=== PATIENT | female | born 1955 | race African-American/Black ===

== ENCOUNTER 2025-01-06 08:54 | Outpatient (CLI) | payer MEDICARE, OTHER, SELFPAY ==
--- NOTE | ~2025-01-06 | CT_ITS ---
EXAM/PROCEDURE: CT abdomen pelvis w con HISTORY: LIVER ABSCESS COMPARISON: None available. TECHNIQUE: IV contrast enhanced CT of the abdomen and pelvis performed. FINDINGS: A left para midline percutaneous pigtail catheter with tip in the anterior segment of the right lobe and mild adjacent hypoattenuating changes consistent with abscess drain placement. A small amount of residual fluid may be present. The remainder the liver, spleen stomach and adrenal glands pancreas and urinary bladder appear normal. Patient appears to be status post hysterectomy and cholecystectomy. No hydroureteronephrosis. The bones appear intact. Urinary bladder appears normal. Moderate amount of stool extends to the cecum. Scattered diverticular disease with somewhat thickened appearance of the proximal sigmoid colon as is seen on image 138 series 3. Trace amount of fluid may also be present in the left paracolic gutter. No free air or drainable fluid collection seen in this area. No bulky mesenteric or retroperitoneal lymphadenopathy or masses seen. IMPRESSION: 1. Percutaneous liver drainage consistent with abscess drain placement. Small amount of adjacent hypoattenuating white matter changes may represent residual infection. 2. Proximal sigmoid findings with early or mild noncomplicated acute diverticulitis not excluded. Correlate with clinical presentation and exam. Reviewed, dictated and finalized at location A. LEX CARE NURSE PRACTITIONER IMPRESSION: 1. Percutaneous liver drainage consistent with abscess drain placement. Small a mount of adjacent hypoattenuating white matter changes may represent residual i nfection. 2. Proximal sigmoid findings with early or mild noncomplicated acute diverticul itis not excluded. Correlate with clinical presentation and exam.
--- OUTSIDE RECORDS SUMMARY | 2025-01-06 09:10 | XMS_ITS | Encounter Summary ---
Author Organization [facility] Address [address] [facility] [place] [address] Care Team Providers Care Joiner Name Role Phone Kenneth Gates MD Unavailable Liyah Alba APRN-DEICER INSPECTOR PNEUMATIC Primary Care Provider [phone] Reason for Visit * Reason Onset Date Comments MEDICATION REFILL 03/11/2024 Encounter Details Date Type Department Care Team (Late Contact Info) Description 03/11/2024 Refill [facility] - Endocrinology [address] [place] [address] Joaquina Peterson MD [address] [place] [address] [address] [facility] [place] [address] MEDICATION REFILL Social History Tobacco Use Types Packs/Day Years Used Date Smoking Tobacco: Never Smokeless Tobacco: Never Alcohol Use Standard Drinks/Week Comments Yes 0 (1 standard drink = 0.6 oz pur e alcohol) SOCIAL Comments Unknown Sex and Gender Information Value Date Recorded Sex Assigned at Not on file Legal Sex Female 5:22 PM ARMY MANAGER Gender Identity Not on file Sexual Orientation Not on file documented as of this encounter Plan of Treatment Upcoming Encounters Date Type Department Care Team (Late Contact Info) Description 05/29/2025 3:40 PM CDT Office Visit [facility] - Endocrinology [address] [place] [address], [place] [address] Joaquina Peterson MD [address] [place] [address] [address] [place] [address] documented as of this encounter Visit Diagnoses Not on filedocumented in this encounter Care Teams Joiner Relationship Specialty Start Date End Date JaeladamarisLiyahIZABELLA-DEICER INSPECTOR PNEUMATIC [address] [place] [address] PCP - General Nurse Practitioner 05/14/21 [place] [address] [address] Consulting Physician Cardiac Electrophysiology 10/28/19 documented as of this encounter
--- OUTSIDE RECORDS SUMMARY | 2025-01-06 09:10 | XMS_ITS | Encounter Summary ---
Author Organization [facility] Address [address] [facility] [place] [address] Care Team Providers Care Mold Checker Name Role Phone Kenneth Gates MD Unavailable Liyah Alba APRN-ARC FURNACE OPERATOR Primary Care Provider [phone] Encounter Details Date Type Department Care Team (Late Contact Info) Description 07/14/2023 Telephone [facility] - Centralized Scheduling [address] [place] [phone] Joaquina Peterson MD [address] [place] [address] [address] [place] [address] Social History Tobacco Use Types Packs/Day Years Used Date Smoking Tobacco: Never Smokeless Tobacco: Never Alcohol Use Standard Drinks/Week Comments Yes 0 (1 standard drink = 0.6 oz pur e alcohol) SOCIAL Comments Unknown Sex and Gender Information Value Date Recorded Sex Assigned at Not on file Legal Sex Female 5:22 PM HIDE BUFFER Gender Identity Not on file Sexual Orientation Not on file documented as of this encounter Plan of Treatment Upcoming Encounters Date Type Department Care Team (Late Contact Info) Description 05/29/2025 3:40 PM CDT Office Visit [facility] - Endocrinology [address] [place] [address], [place] [address] Joaquina Peterson MD [address] [place] [address] [address] [place] [address] documented as of this encounter Visit Diagnoses Not on filedocumented in this encounter Care Teams Mold Checker Relationship Specialty Start Date End Date Liyah Alba APRN-MAURILIO [address] [place] [address] PCP - General Nurse Practitioner 05/14/21 [place] [address] [phone] Consulting Physician Cardiac Electrophysiology 10/28/19 documented as of this encounter
--- OUTSIDE RECORDS SUMMARY | 2025-01-06 09:10 | XMS_ITS | Encounter Summary ---
Author Organization [facility] Address [address] [facility] [place] [address] Care Team Providers Care Feather Baler Name Role Phone Kenneth Gates MD Unavailable Liyah Alba APRN-HL7 INTERFACE DEVELOPER Primary Care Provider [phone] Encounter Details Date Type Department Care Team (Late st Contact Info) Description 04/13/2024 Telephone [facility] - Endocrinology [address] [place] [address], [place] [address] Joaquina Peterson MD [address] [place] [address] [place] [address] Social History Tobacco Use Types Packs/Day Years Used Date Smoking Tobacco: Never Smokeless Tobacco: Never Alcohol Use Standard Drinks/Week Comments Yes 0 (1 standard drink = 0.6 oz pur e alcohol) SOCIAL Comments Unknown Sex and Gender Information Value Date Recorded Sex Assigned at Not on file Legal Sex Female 5:22 PM BELT CHANGER Gender Identity Not on file Sexual Orientation Not on file documented as of this encounter Miscellaneous Notes * Telephone Encounter - Tracey Baptiste - 04/13/2024 2:38 PM CST Current Provider: Dr. Joaquina Peterson Reason for Call: Ms. Kandy Mederos did do her labs, she would like a call from you to review. Patient Call Back Number: [phone] CHANGER documented in this encounter Plan of Treatment Upcoming Encounters Date Type Department Care Team (Late st Contact Info) Description 05/29/2025 3:40 PM CDT Office Visit [facility] - Endocrinology [address] [place] [address], [place] [address] Joaquina Peterson MD [address] [place] [address] [place] [phone] documented as of this encounter Visit Diagnoses Not on filedocumented in this encounter Care Teams Feather Baler Relationship Specialty Start Date End Date Liyah Alba APRN-HL7 INTERFACE DEVELOPER [address] [place] [address] PCP - General Nurse Practitioner 05/14/21 [place] [address] [phone] Consulting Physician Cardiac Electrophysiology 10/28/19 documented as of this encounter
--- OUTSIDE RECORDS SUMMARY | 2025-01-06 09:10 | XMS_ITS | Encounter Summary ---
Author Organization [facility] Address [address] [facility] [place] [address] Care Team Providers Care Specialist Physicians Name Role Phone Kenneth Gates MD Unavailable Liyah Alba APRN-BUSINESS AFFAIRS MANAGER Primary Care Provider [phone] Encounter Details Date Type Department Care Team (Late st Contact Info) Description 06/13/2024 Telephone [facility] - Endocrinology [address] [place] [address], [facility] [place] [address] Joaquina Peterson MD [address] [place] [address] [place] [address] Social History Tobacco Use Types Packs/Day Years Used Date Smoking Tobacco: Never Smokeless Tobacco: Never Alcohol Use Standard Drinks/Week Comments Yes 0 (1 standard drink = 0.6 oz pur e alcohol) SOCIAL Comments Unknown Sex and Gender Information Value Date Recorded Sex Assigned at Not on file Legal Sex Female 5:22 PM LOADING MANAGER Gender Identity Not on file Sexual Orientation Not on file documented as of this encounter Miscellaneous Notes * Telephone Encounter - Tracey Baptiste - 06/13/2024 10:09 AM CDT Patient called in requesting a Med refill. Drug type:empagliflozin (Jardiance) 25 MG tablet NovoLOG FLEXPEN pen Pharmacy: [facility] [address] [place] [address] [facility] [place] [address] [phone] Patient call back number: [phone] . Patients KATHLEEN : [birth year] Upcoming appointment scheduled for : 06/28/2024 documented in this encounter Plan of Treatment Upcoming Encounters Date Type Department Care Team (Late st Contact Info) Description 05/29/2025 3:40 PM CDT Office Visit [facility] - Endocrinology [address] [place] [address], [place] [address] Joaquina Peterson MD [address] [place] [address] [place] [phone] documented as of this encounter Visit Diagnoses Not on filedocumented in this encounter Care Teams Specialist Physicians Relationship Specialty Start Date End Date Liyah Alba APRN-MAURILIO [address] [place] [address] PCP - General Nurse Practitioner 05/14/21 [place] [address] [address] Consulting Physician Cardiac Electrophysiology 10/28/19 documented as of this encounter
--- OUTSIDE RECORDS SUMMARY | 2025-01-06 09:10 | XMS_ITS | Encounter Summary ---
Author Organization [facility] Address [address] [place] [address] Care Team Providers Care Raise Miner Name Role Phone Unavailable Primary Care Provider Unavailabl e Reason for Visit * Reason Onset Date Comments IV abx orders and CT scan 01/05/2025 Encounter Details Date Type Department Care Team (Late st Contact Info) Description 01/05/2025 Telephone [facility] INFECTIOUS DISEASE [facility] [address] [facility] [address] [place] [address] Mayco Amador MD [address] [place] [address] and [address] scan Social History Tobacco Use Types Packs/Day Years Used Date Smoking Tobacco: Never Smokeless Tobacco: Never Food Insecurity Answer Date Recorded Do you find you are eating l ess than you should because you can t pay for food? No 11/27/2024 Transportation Needs Answer Date Record ed Have you gone without health care because you didn t have a way to get there? Or worry about transportation for future doctor visits, last picker medication, etc.? No 2024 Housing Stability Answer Date Recorded Do you worry you won t have a steady place to sleep or struggle to pay rent or mortgage? No 11/27/2024 Utility Needs Answer Date Recorded Do you have difficulty payin g for utility costs (electric, water or gas bills)? No 11/27/2024 Medication Needs Answer Date Recorded Have you skipped taking medi cation due to cost or worry you can t afford new medications? No 11/27/2024 Feeling Safe Answer Date Recorded Are you in a relationship wi th someone who hurts you emotionally and/or physically? No 11/27/2024 Food Insecurity Answer Date Recorded Patient needs follow up regardin 11/27/2024 Transportation Needs Answer Date Record ed Patient needs follow up regardin 11/27/2024 Utility Needs Answer Date Recorded Patient needs follow up regardin 11/27/2024 Comments Unknown Sex and Gender Information Value Date Recorded Sex Assigned at Not on file Legal Sex Female 11:26 PM CDT Gender Identity Not on file Sexual Orientation Not on file documented as of this encounter Miscellaneous Notes * Telephone Encounter - Liyah Langston LPN - 01/05/2025 10:48 AM CST Incoming call from pharmacist Solo to discuss IV abx stop date. Per secure chat with Dr. Amador patient is to remain on IV ertapenem until stat CT scan is complete and resulted out. Outgoing call to patient, phone number provided to central scheduling to schedule the ordered scan. ETIC COUNSELOR documented in this encounter Plan of Treatment Upcoming Encounters Date Type Department Care Team (Late st Contact Info) Description 01/31/2025 11:30 AM DIANETIC COUNSELOR Office Visit [facility] INFECTIOUS DISEASE [place] [address] [place] [address] Mayco Amador MD [address] [place] [address] documented as of this encounter Visit Diagnoses Not on filedocumented in this encounter
--- OUTSIDE RECORDS SUMMARY | 2025-01-06 09:10 | XMS_ITS | Clinical Summary ---
Author Organization [facility] [employer] Address [address] [facility] [place] [address] Care Team Providers Care Processor Inspector Name Role Phone Kenneth Gates MD Unavailable [phone] Liyah Alba APRN-MEDICAL STAFF CREDENTIALING COORDINATOR Primary Care Provider [phone] Source Comments [facility],non-owned Affiliates and Associated Physician Practices is amultiple site organization consisting of ambulatory clinics and hospital sitesin [place], [place], [place] and [place]. This disclosure is being madepursuant to the Care Everywhere program and may not contain all information available regarding this patient. Last updated 17.[facility] Allergies Active Allergy Reactions Criticality Noted Date Comments Seasonal Rhinitis 07/08/2024 Medications * Be aware that medications may not be up to date on this document. Alwaysverify current medications with the patient. rosuvastatin (CRESTOR) 10 MG tablet Active linaCLOtide (LINZESS) 72 MCG capsule Active doxycycline hyclate (VIBRAMYCIN) 100 MG capsule doxycycline hyclate 100 mg capsule Active potassium chloride ER (KLOR-CON M) 20 MEQ tablet Take 1 tablet by mouth once daily 90 tablet 5 0 Active acetaminophen (Tylenol) 325 MG tablet 1 Active GARLIC PO Active MULTIPLE VITAMINS-PHYSICIAN RELATIONS REPRESENTATIVE ALS ER PO Take by mouth once daily Active aspirin (Aspirin) 325 MG tablet aspirin 325 mg tablet,delayed release Active glucosamine-ch ondroitin 500-400 MG capsule Take 1 (one) capsule by mouth once daily Active FREESTYLE LITE STRIPS test strip 1 Active traMADol (Ultram) 50 MG tablet Take 1 (one) tablet by mouth every 8 hours 2 Active Apple Cider Vinegar 300 MG Take 1 tablet by mouth Active Biotin 1000 MCG Take 1 (one) tablet by mouth 3 times daily Active Chromium 200 MCG Take 1 capsule by mouth Active Cyanocobalamin 50 MCG Take 1 (one) tablet by mouth once daily Active Ginkgo Biloba Extract 60 MG Take 1 capsule by mouth Two times a week Active fenofibrate (Lofibra) 160 MG tablet Take 1 (one) tablet by mouth once daily 90 tablet 3 4 Active Lantus SoloStar pen Inject 35 (thirty five) Units subcutaneously at bedtime 30 mL 3 5 Active senna-docusate (Senokot-S) 8.6-50 MG tablet Take 1 (one) tablet by mouth once daily Active empagliflozin (Jardiance) 25 MG tablet Take 1 (one) tablet by mouth once daily 30 tablet 5 5 Active telmisartan-hy droCHLOROthiaz ariana (Micardis HCT) 80-25 MG Take 1 (one) tablet by mouth once daily 90 tablet 4 5 Active Continuous Glucose Sensor (FreeStyle Ciro 3 Plus Sensor) [facility] 5 Active diclofenac sodium (Voltaren) 1 % gel Apply 4 (four) g to affected area 4 times daily 5 Active tretinoin (Retin-A) 0.05 % cream 5 Active Semaglutide(0. 25 or 0.5MG/DOS) 2 MG/3ML Solution Pen-injector (Ozempic (0.25 or 0.5 MG/DOSE))Indic ations:Type 2 diabetes mellitus with other specified complication, with long-term current use of insulin (HCC) Inject 0.5 mg subcutaneously every 7 days (once a week) 6 mL 3 5 Active gabapentin (Neurontin) 100 MG capsuleIndicat ions:Type 2 diabetes mellitus with other specified complication, with long-term current use of insulin (HCC) Take 2 (two) capsules by mouth 3 times daily 180 capsule 3 5 Active NovoLOG FLEXPEN penIndications :Type 2 diabetes mellitus with other specified complication, with long-term current use of insulin (HCC) Inject 10 (ten) Units subcutaneously 3 times daily,before breakfast/lunch/be dtime 15 mL 3 5 Active Sure Comfort Pen [place] 31G X 8 MM needleIndicati ons:Type 2 diabetes mellitus with other specified complication, with long-term current use of insulin (HCC) 3 times daily 100 Each 3 5 Active Active Problems Problem Noted Date Diagnosed Date Stage 3a chronic kidney disease 11/07/2024 Thyroid nodule 05/26/2023 Diabetes mellitus 06/23/2022 Status post catheter ablation of slow pathway SVT (supraventricular tachycardia) 04/24/2019 Essential hypertension 04/24/2019 Encounters Date Type Department Care Team Description 11/10/2024 Telephone [facility] - Endocrinology [address] [place] [phone] Joaquina Peterson MD Rx Formulary/Therapeutic Substitution 11/09/2024 Telephone [facility] - Centralized Scheduling [address] [place] [address] Joaquina Peterson MD Rx Formulary/Therapeutic Substitution 11/07/2024 9:20 AM CDT Office Visit [facility] - Endocrinology [address] [place] [phone] Joaquina Peterson MD Type 2 diabetes mellitus with other specified complication, with long-term current use of insulin (HCC) (Primary Dx); Thyroid nodule; Stage 3a chronic kidney disease (HCC) 11/07/2024 Refill [facility] - Endocrinology [address] [place] [phone] Joaquina Peterson MD MEDICATION REFILL 11/07/2024 Results Follow-Up [facility] - Endocrinology [address] [place] [phone] Joaquina Peterson MD 11/07/2024 Travel from Last 3 Months Immunizations Immunization Administration Dates Next Due [employer] primary monoval ent 12+ yr 0.3mL Purple cap 04/21/2020,03/31/2020 Family History Medical History Relation Name Comments Diabetes Mother Relation Name Status Comments Mother Social History Tobacco Use Types Packs/Day Years Used Date Smoking Tobacco: Never Smokeless Tobacco: Never Tobacco Cessation:Counseling Given: No Alcohol Use Standard Drinks/Week Comments Yes 0 (1 standard drink = 0.6 oz pur e alcohol) SOCIAL Comments Unknown Sex and Gender Information Value Date Recorded Sex Assigned at Not on file Legal Sex Female 5:22 PM DIRECTOR OF RETAIL MERCHANDISING Gender Identity Not on file Sexual Orientation Not on file Last Filed Vital Signs Vital Sign Reading Time Taken Comments Blood Pressure 131/65 11/07/2024 9:00 AM CDT Pulse 64 11/07/2024 9:00 AM CDT Temperature 36.8 C (98.2 F) 07/31/2022 2:55 PM CDT Respiratory Rate 18 07/31/2022 3:35 PM CDT Oxygen Saturation 98% 11/07/2024 9:00 AM CDT Inhaled Oxygen Concentration - - Weight 71.8 kg (158 lb 6.4 oz) 11/07/2024 9:00 A M CDT Height 162.6 cm (5' 4) 11/07/2024 9:00 AM CDT Body Mass Index 27.19 11/07/2024 9:00 AM CDT Plan of Treatment Upcoming Encounters Date Type Department Care Team (Late st Contact Info) Description 05/29/2025 3:40 PM CDT Office Visit [facility] - Endocrinology [address] [place] [address], [place] [phone] Joaquina Peterson MD [address] [place] [address] [place] [address] Health Maintenance Due Date Last Done Comments COLOGUARD (AGES 45-75) - COLON CA SCREENING 1953 CT COLONOGRAPHY - COLON CA SCREENING 1955 FIT - COLON CA SCREENING 1955 FLEX SIG - COLON CA SCREENING 1955 DTAP/TDAP/TD VACCINES (1 - Tdap) 1972 PNEUMOCOCCAL VACCINE 50+ (1 of 2 - PCV) 1972 Respiratory Syncytial Virus (RSV) Vaccine Pt: or over 60 yrs (1 - Risk 50-74 years 1-dose series) 11/25/2003 ZOSTER VACCINE (1 of 2) 11/25/2003 DIABETES RETINOPATHY SCREENING 06/23/2022 04/12/2018, 06/10/2013, 04/04/2011, Additional history exists DIABETES-FOOT EXAM WITH MONOFILAMENT 06/23/2022 DEPRESSION SCREENING 02/17/2024 MEDICARE AWV CALENDAR YEAR 2024 COVID-19 VACCINE ( season) 2024 05/29/2021, 11/18/2020, 04/21/2020, Additional history exists INFLUENZA VACCINE (#1) 2024 , 12/10/2019, 12/09/2019, Additional history exists DIABETES - URINE PROTEIN SCREENING 04/12/2025 04/12/2024 DIABETES-SERUM CREATININE 04/12/20252024, 12/10/2023, 09/28/2019, Additional history exists DIABETES-HGB A1C 05/07/2025 11/07/2024, , 04/12/2024, Additional history exists MAMMOGRAM 04/19/2026 04/19/2024, 03/0 05/2024, 06/26/2023, Additional history exists COLON MONITORING 01/24/2029 01/24/2019 COLONOSCOPY - COLON CA SCREENING 01/24/2029 01/24/2019 Colorectal Cancer Screening 01/24/2029 HEPATITIS C SCREENING Completed 01/27/2022 BONE DENSITY TESTING Completed 09/10/2022 HEPATITIS B VACCINE Aged Out No longe r eligible based on patient's age to complete this topic HIB VACCINE Aged Out No longer eligi ble based on patient's age to complete this topic HPV VACCINE Aged Out No longer eligi ble based on patient's age to complete this topic MENINGOCOCCAL (Group B) VACCINE SHARED DECISION-MAKING Aged Out No longer eligible based on patient's age to complete this topic MENINGOCOCCAL GROUPS A/C/Y/W VACCINE Aged Out No longer eligible based on patient's age to complete this topic Procedures Procedure Name Priority Date/Time Associated Diagnosis Comments HEMOGLOBIN A1C - POINT OF CARE (AMB) [facility] Routine 11/07/2024 9:05 AM CDT Type 2 diabetes mellitus with other specified complication, with long-term current use of insulin (HCC) MICROALB/CREAT RATIO URINE RANDOM PANEL Routine 04/12/2024 10:33 AM DIRECTOR OF RETAIL MERCHANDISING Type 2 diabetes mellitus with other specified complication, with long-term current use of insulin Thyroid nodule Essential hypertension SVT (supraventricular tachycardia) COMPREHENSIVE METABOLIC PANEL Routine 04/12/2024 10:33 AM DIRECTOR OF RETAIL MERCHANDISING Type 2 diabetes mellitus with other specified complication, with long-term current use of insulin Thyroid nodule Essential hypertension SVT (supraventricular tachycardia) from Last 3 Months or Most Recently Relevant to Health Maintenance Results * HEMOGLOBIN A1C - POINT OF CARE (AMB) [facility] (11/07/2024 9:05 AM CDT) Pathologist [facility] Hemoglobin A1c POCT 7.5 % [address] BLOOD SPECIMEN / Unknown 11/07/2024 9:05 AM CDT Joaquina Peterson MD LAB - POINT OF CARE ORDERABLES Final Result Performing Organization Address [facility]/State/ZIP Co de Phone Number [address], [place] [address], [facility] [phone] * (ABNORMAL) MICROALB/CREAT RATIO URINE RANDOM PANEL (04/12/2024 10:33 AM DIRECTOR OF RETAIL MERCHANDISING) Creatinine Urine 68.6 Not Estab. mg/dL [facility] INSURANCE BILL Microalbumin Urine 26.1 Not Estab. ug/mL [facility] INSURANCE BILL Microalbumin/Crea tinine Ratio 38(H) 0 - 29 mg/g creat [facility] INSURANCE BILL Comment: Normal: 0 - 29 Moderately increased: 30 - 300 Severely increased: >300 Urine URINE SPECIMEN OBTAINED BY CLEAN CATCH PROCEDURE / Unknown 04/12/2024 10:33 AM DIRECTOR OF RETAIL MERCHANDISING 04/12/2024 Narrative [facility] INSURANCE BILL - 04/13/2024 7:09 AM DIRECTOR OF RETAIL MERCHANDISING Performed at: [address] [place] [id number] [employer] Hooker: López Omalley PhD, Phone: [phone] us Joaquina Peterson MD LAB - URINE CHEMISTRY ORDERABLE S Final Result [facility] INSURANCE BILL [address] [place] [address] * (ABNORMAL) COMPREHENSIVE METABOLIC PANEL (04/12/2024 10:33 AM DIRECTOR OF RETAIL MERCHANDISING) Glucose 179(H) 70 - 99 mg/dL [facility] INSURANCE BILL BUN 16 8 - 27 mg/dL [facility] INSURANCE BILL Creatinine 1.02(H) 0.57 - 1.00 mg/dL [facility] INSURANCE BILL eGFR by CKD-EPI 59(L) >59 mL/min/1.7 3 [facility] INSURANCE BILL BUN/Creatinine Ratio 16 12 - 28 [facility] INSURANCE BILL Sodium 138 134 - 144 mmol/L [facility] INSURANCE BILL Potassium 4.4 3.5 - 5.2 mmol/L [facility] INSURANCE BILL Chloride 101 96 - 106 mmol/L [facility] INSURANCE BILL CO2 23 20 - 29 mmol/L [facility] INSURANCE BILL Calcium 10.2 8.7 - 10.3 mg/dL [facility] INSURANCE BILL Protein Total 7.7 6.0 - 8.5 g/dL [facility] INSURANCE BILL Albumin 4.4 3.9 - 4.9 g/dL [facility] INSURANCE BILL Globulin Total 3.3 1.5 - 4.5 g/dL [facility] INSURANCE BILL Bilirubin Total 0.3 0.0 - 1.2 mg/dL [facility] INSURANCE BILL Alkaline Phosphatase 43(L) 44 - 121 IU/L [facility] INSURANCE BILL AST 23 0 - 40 IU/L [facility] INSURANCE BILL ALT 12 0 - 32 IU/L [facility] INSURANCE BILL Blood BLOOD SPECIMEN / Unknown 04/12/2024 10:33 AM DIRECTOR OF RETAIL MERCHANDISING 04/12/2024 Narrative [facility] INSURANCE BILL - 04/13/2024 7:09 AM DIRECTOR OF RETAIL MERCHANDISING Performed at: [address] [id number] Mon[employer]ail Hooker: López Omal[place] PhD, Phone: [phone] us Joaquina Peterson MD LAB - CHEMISTRY ORDERABLES Unique l Result [facility] INSURANCE BILL [address] [place] [address] from Last 3 Months or Most Recently Relevant to Health Maintenance Insurance [facility] MANAGED MEDICARE ADV Care Teams Processor Inspector Relationship Specialty Start Date End Date Liyah Alba APRN-MAURILIO [address] [place] [address] PCP - General Nurse Practitioner 05/14/21 [place] [address] [address] Consulting Physician Cardiac Electrophysiology 10/28/19
--- OUTSIDE RECORDS SUMMARY | 2025-01-06 09:10 | XMS_ITS | Clinical Summary ---
Author Organization [facility] Address [address] [place] [address] Care Team Providers Care Smoke Jumper Name Role Phone Unavailable Primary Care Provider Unavailabl e Allergies No known active allergies Medications empagliflozin (JARDIANCE) 25 mg tablet Take 25 mg by mouth daily in the morning. 06/14/19 25 Active traMADol (ULTRAM) 50 mg tablet Take 50 mg by mouth every 8 hours as needed for Pain, Moderate. 06/04/19 25 Active insulin aspart U-100 (NovoLOG Flexpen U-100 Insulin) 100 unit/mL pen syringe Inject 5 Units by subcutaneous injection 3 times daily with meals. 11/08/19 25 Active Telmisartan-Hy drochlorothiaz id 80-25 mg Tablet Take 1 Tablet by mouth daily. 09/03/19 25 Active gabapentin (NEURONTIN) 300 mg capsule Take 200 mg by mouth 3 times daily as needed for Pain. 11/08/19 25 Active acetaminophen (TYLENOL) 325 mg tablet Take 325 mg by mouth. Active aspirin (ECOTRIN EC) 81 mg Tablet, Delayed Release (E.C.) Take 81 mg by mouth daily. Active cetirizine (ZyrTEC) 10 mg tablet Take 10 mg by mouth daily. Active doxycycline hyclate (VIBRAMYCIN) 50 mg Capsule Take 50 mg by mouth daily. Active ferrous sulfate 325 mg (65 mg iron) tablet Take 325 mg by mouth daily. Active omega-3 fatty acids-fish oil 300-1,000 mg Capsule Take 1 Capsule by mouth daily. Active glucosamine-ch ondroitin (ARTHX DS) 500-400 mg Capsule Take 1 Capsule by mouth daily. Active sennosides-doc usate sodium (SENNA-S) 8.6-50 mg tablet Take 1 Tablet by mouth 2 times daily as needed. Active fenofibrate (LOFIBRA) 160 mg Tablet Take 1 Tablet (160 mg) by mouth daily. 30 Tablet 11 12/09/19 Active fluticasone propionate (FLONASE) 50 mcg/spray Hunter, Suspension nasal inhaler Administer 2 Sprays in each nostril daily. 16 Gram 12/10/19 Active Additional Information Patient not taking.Reported on 01/04/2025 sodium chloride (OCEAN) 0.65 % Aerosol, Hunter Administer 2 Sprays in each nostril 3 times daily. 50 mL 12/09/19 Active polyethylene glycol (MIRALAX) 17 gram Powder in Packet Take 1 Packet (17 Grams) by mouth 2 times daily as needed for Constipation. 40 Packet 12/09/19 Active tretinoin (RETIN-A) 0.05 % Cream Apply to affected area. 05/05/19 Discontinued semaglutide, weight loss, (WEGOVY) 1 mg/0.5 mL Pen Injector Inject 1 mg by subcutaneous injection every 7 days. 11/08/19 Discontinued insulin glargine (Lantus Solostar U-100 Insulin) 100 unit/mL pen syringe Inject 30 Units by subcutaneous injection daily at bedtime. 03/11/19 Discontinued ibuprofen (MOTRIN) 800 mg tablet Take 800 mg by mouth every 8 hours as needed for Pain, Mild. 06/01/19 Discontinued fenofibrate (LOFIBRA) 160 mg Tablet Take 160 mg by mouth daily. 12/01/19 Discontinued Biotin 1 mg Tablet Take by mouth. Discontinued calcium-magnes ium-Zinc 333-133-5 mg Tablet Take by mouth. Discontinued diclofenac sodium (VOLTAREN) 1 % gel Apply to affected area 4 times daily. Discontinued ertapenem (INVanz) 1,000 mg for home infusion Inject 1 Dose by intravenous injection every 24 hours for 28 days. 28 Dose 12/09/19 Active Problems Problem Noted Date Diagnosed Date Hyponatremia 12/06/2024 Localized infection 11/30/2024 Microcytic anemia 11/29/2024 Imaging of gastrointestinal tract abnormal 11/29 Liver abscess 11/27/2024 Colon polyp 11/27/2024 Acute renal failure superimp osed on stage 3 chronic kidney disease 11/27/2024 Thyroid nodule 11/27/2024 Hypertension Hyperlipidemia Diabetes mellitus CRI (chronic renal insufficiency) Constipation Arthritis Acne Encounters Date Type Department Care Team Description 01/05/2025 Telephone [facility] INFECTIOUS DISEASE LOCK SPRINGSER B [address] [facility] [address] [place] [address] Mayco Amador MD IV abx orders and CT scan 01/04/2025 10:00 AM CORN SHELLER OPERATOR Office Visit [facility] INFECTIOUS DISEASE BURNS B [address] [facility] [address] [place] [address] Mayco Amador MD Liver abscess (Primary Dx) 01/03/2025 External Device Data STL ABSTRACTION Provider, Abstract 01/03/2025 External Device Data [facility] ABSTRACTION Provider, Abstract 01/03/2025 External Device Data ST[facility] ABSTRACTION Provider, Abstract 12/22/2024 Abstract [facility] INFECTIOUS DISEASE BURNS B [address] [facility] [address] [place] [address] Mayco Amador MD 12/15/2024 Abstract [facility] INFECTIOUS DISEASE LOCK SPRINGSER B [address] [facility] [address] [place] [address] Mayco Amador MD 12/09/2024 Telephone [facility] INFECTIOUS DISEASE LOCK SPRINGSER B [address] [facility] [address] [place] [address] Mayco Amador MD needs appt for hospital follow up; Needs Orders Written 12/06/2024 External Device Data ST[facility] ABSTRACTION Provider, Abstract 11/30/2024 9:47 AM CDT Anesthesia Event [facility] [place] [address] [address] [place] [address] Meg Long MD 11/30/2024 8:00 AM CDT - 11/30/2024 8:40 AM CDT Surgery [facility] [address] [place] [address] [place] [address] Michael Wise MD ESOPHAGOGASTRODUODENOSCOPY 11/29/2024 External Device Data ST[facility] ABSTRACTION Provider, Abstract 11/29/2024 External Device Data STL ABSTRACTION Provider, Abstract 11/29/2024 External Device Data STL ABSTRACTION Provider, Abstract 11/27/2024 2:29 AM CDT - 12/08/2024 4:24 PM CDT Hospital Encounter [facility] [address] [facility] [place] [address] Yaritza Warren MD [place], MD Giovani Bright, MD Ozzie Donato Mytri, MD Liver abscess Discharge Disposition: Home Health Care [facility] [place], [place] 11/27/2024 Travel from Last 3 Months Immunizations Immunization Administration Dates Next Due (ADACEL/BOOSTRIX)(10 YR UP) TDAP VACCINE, 0.5ML, IM 01/15/2012 (AREXVY)(60 YR UP) RSV, DINESH MBINANT, PROTEIN SUBUNIT RSVPREF, ADJUVANT RECONSTITUTED, 0.5 ML, PF 02/06/2023 (PNEUMOVAX 23)(50 YRS UP) PN EUMOCOCCAL POLYSACCHARIDE (PPV23) 0.5 ML, IM 12/10/2019 (PREVNAR 13)(6 WKS UP) PNEUM OCOCCAL CONJUGATE (PCV13) 0.5 ML, IM 12/17/2018 (SHINGRIX)(50 YRS UP) ZOSTER VACCINE RECOMBINANT, 0.5 ML, IM 02/17/2019,12/17/2018 INFLUENZA VACCINE HIGH DOSE QUADRIVALENT 65 YR UP PF IM 12/01/2022,11/08/2020,12/10/2019,12/17 Influenza Seasonal Unspecifi ed Formulation IM 01/15/2012 Influenza Vaccine 18+ C.derived Pf Im 12/23/2016 Influenza Vaccine High Dose 65+ Yrs IM ,11/13/2023,12/17/2018 Influenza Virus Vaccine, Spl it Virus (Incl. Purified Surface antigen)-retired CODE 11/16/2009,02/02/2007,01/01/2005 Influenza, Unspecified Formulation 11/10,12/23/2016,01/15/2012,11/16,02/02/2007,01/01/2005,12/21/2002 ,02/03/2002,01/16/2001,12/10/1998 Social History Tobacco Use Types Packs/Day Years Used Date Smoking Tobacco: Never Smokeless Tobacco: Never Tobacco Cessation:Counseling Given: Not Answered Food Insecurity Answer Date Recorded Do you find you are eating l ess than you should because you can t pay for food? No 11/27/2024 Transportation Needs Answer Date Record ed Have you gone without health care because you didn t have a way to get there? 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 No 2024 Housing Stability Answer [...] Reading Time Taken Comments Blood Pressure 131/65 01/04/2025 9:52 AM CORN SHELLER OPERATOR Pulse 81 01/04/2025 9:52 AM CORN SHELLER OPERATOR Temperature 36.8 C (98.2 F) 12/08/2024 11:10 AM CDT Respiratory Rate 22 12/08/2024 6:00 AM CDT Oxygen Saturation 98% 01/04/2025 9:52 AM CORN SHELLER OPERATOR Inhaled Oxygen Concentration - - Weight 68 kg (150 lb) 01/04/2025 9:52 AM CORN SHELLER OPERATOR Height 162.6 cm (5' 4) 01/04/2025 9:52 AM CORN SHELLER OPERATOR Body Mass Index 25.75 01/04/2025 9:52 AM CORN SHELLER OPERATOR Plan of Treatment Upcoming Encounters Date Type Department Care Team (Late st Contact Info) Description 01/31/2025 11:30 AM CORN SHELLER OPERATOR Office Visit [facility] INFECTIOUS DISEASE TOWER B [address] [facility] [address] [address] [place] [address] Mayco Amador MD [address] [place] [address] Health Maintenance Due Date Last Done Comments DIABETES ANNUAL FOOT EXAM 11/25/1971 DIABETES MICROALBUMIN ANNUAL SCREEN 11/25/1971 LDL CHOLESTEROL ANNUAL 11/25/1971 FIT-DNA Q 3 years 1998 FIT/FOBT Q 1 year 1998 Flex Sig/CT Colonography Q 5 years 1998 DIABETES ANNUAL RETINAL EXAM 04/12/2019 04/12/2018 DTAP/TDAP/TD VACCINES (2 - T d or Tdap) 01/14/2022 01/15/2012 Medicare Advantage ([place]) Preventative Visit/Annual Wellness Visit 02/17/2024 COVID-19 Vaccine (2024-2 6 season) 2024 05/29/2021, 11/18/2020, 04/21/2020, Additional history exists BREAST CANCER SCREENING 04/19/2025 04/20/19, 04/19/2024, 06/26/2023, Additional history exists DIABETES HBA1C Q 6 MONTHS 05/28/20252024, 11/07/2024, 07/04/2024, Additional history exists OSTEOPOROSIS SCREENING 09/11/2027 09/10/2022, 2022 COLORECTAL SCREENING 11/30/2034 11/30/2024, 11/30/2024, 01/24/2019, Additional history exists Colorectal Cancer Screening 11/30/2034 ZOSTER VACCINE Completed 02/17/2019, 12/17/2018 PNEUMOCOCCAL VACCINE 50+ YEARS Completed 12/10/2019 , 12/17/2018 RSV VACCINE (60+ or ) Completed 02/06/2023 INFLUENZA VACCINE Completed 12/21/2024, , 12/01/2022, Additional history exists Procedures Procedure Name Priority Date/Time Associated Diagnosis Comments TELEMETRY REPORT 12/13/2024 12:46 PM CDT POC GLUCOSE Routine 12/08/2024 9:13 AM CDT DIFFERENTIAL, MANUAL Routine 12/08/2024 5:21 AM CDT CBC WITH DIFFERENTIAL Routine 12/08/2024 5:21 AM CDT BASIC METABOLIC PANEL Routine 12/08/2024 5:21 AM CDT POC GLUCOSE Routine 12/08/2024 12:18 AM CDT POC GLUCOSE Routine 12/07/2024 7:58 PM CDT POC GLUCOSE Routine 12/07/2024 4:49 PM CDT RESPIRATORY PATHOGEN PCR PANEL Routine 1 2:54 PM CDT POC GLUCOSE Routine 12/07/2024 9:59 AM CDT C-REACTIVE PROTEIN Routine 12/07/2024 5:53 AM CDT BASIC METABOLIC PANEL Routine 12/07/2024 5:53 AM CDT POC GLUCOSE Routine 12/06/2024 9:20 PM CDT IR TUBE PLACEMENT Routine 12/06/2024 3:14 PM CDT POC GLUCOSE Routine 12/06/2024 1:58 PM CDT POC GLUCOSE Routine 12/06/2024 9:02 AM CDT BASIC METABOLIC PANEL Routine 12/06/2024 8:31 AM CDT CORTISOL LEVEL Routine 12/06/2024 8:31 AM CDT TSH Routine 12/06/2024 5:28 AM CDT POC GLUCOSE Routine 12/05/2024 11:04 PM CDT BLOOD CULTURE Routine 12/05/2024 10:56 PM CDT BLOOD CULTURE Routine 12/05/2024 10:56 PM CDT BLOOD CULTURE Routine 12/05/2024 10:56 PM CDT BLOOD CULTURE Routine 12/05/2024 10:56 PM CDT OSMOLALITY, URINE Routine 12/05/2024 9:38 PM CDT ELECTROLYTES, RANDOM URINE Routine 12/05 9:38 PM CDT POC GLUCOSE Routine 12/05/2024 6:41 PM CDT POC GLUCOSE Routine 12/05/2024 1:17 PM CDT POC GLUCOSE Routine 12/05/2024 9:27 AM CDT DIFFERENTIAL, MANUAL Stat 12/05/2024 8:44 AM CDT RENAL FUNCTION PANEL Routine 12/05/2024 8:44 AM CDT CBC WITH DIFFERENTIAL Stat 12/05/2024 8:44 AM CDT POC GLUCOSE Routine 12/04/2024 9:01 PM CDT POC GLUCOSE Routine 12/04/2024 4:45 PM CDT POC GLUCOSE Routine 12/04/2024 12:24 PM CDT POC GLUCOSE Routine 12/04/2024 10:02 AM CDT POC GLUCOSE Routine 12/04/2024 9:12 AM CDT DIFFERENTIAL, MANUAL Routine 12/04/2024 5:53 AM CDT MAGNESIUM LEVEL Routine 12/04/2024 5:53 AM CDT CBC WITH DIFFERENTIAL Routine 12/04/2024 5:53 AM CDT RENAL FUNCTION PANEL Routine 12/04/2024 5:53 AM CDT POC GLUCOSE Routine 12/03/2024 9:04 PM CDT POC GLUCOSE Routine 12/03/2024 6:05 PM CDT POC GLUCOSE Routine 12/03/2024 5:33 PM CDT POC GLUCOSE Routine 12/03/2024 11:47 AM CDT XR PANOREX Routine 12/03/2024 9:47 AM CDT POC GLUCOSE Routine 12/03/2024 9:10 AM CDT ECHOCARDIOGRAM W/ CONTRAST AGENT Pending Discharge 12/03/2024 8:45 AM CDT DIFFERENTIAL, MANUAL Routine 12/03/2024 5:29 AM CDT BRAIN NATRIURETIC PEPTIDE, B RIVET TESTER OR PROBNP Routine 12/03/2024 5:29 AM CDT MAGNESIUM LEVEL Routine 12/03/2024 5:29 AM CDT CBC WITH DIFFERENTIAL Routine 12/03/2024 5:29 AM CDT RENAL FUNCTION PANEL Routine 12/03/2024 5:29 AM CDT POC GLUCOSE Routine 12/03/2024 5:[address] ABDOMEN PELVIS W CONTRAST Routine 5:07 AM CDT POC GLUCOSE Routine 12/02/2024 10:19 PM CDT POC GLUCOSE Routine 12/02/2024 6:11 PM CDT POC GLUCOSE Routine 12/02/2024 1:56 PM CDT XR ABDOMEN 1 VW Stat 12/02/2024 9:05 AM CDT XR CHEST PA OR AP 1 VW Stat 9:05 AM CDT POC GLUCOSE Routine 12/02/2024 9:02 AM CDT POC GLUCOSE Routine 12/02/2024 8:02 AM CDT POC GLUCOSE Routine 12/02/2024 5:48 AM CDT HEPATIC FUNCTION PANEL Routine 3:17 AM CDT C-REACTIVE PROTEIN Routine 12/02/2024 3:17 AM CDT DIFFERENTIAL, MANUAL Routine 12/02/2024 3:17 AM CDT MAGNESIUM LEVEL Routine 12/02/2024 3:17 AM CDT CBC WITH DIFFERENTIAL Routine 12/02/2024 3:17 AM CDT RENAL FUNCTION PANEL Routine 12/02/2024 3:17 AM CDT POC GLUCOSE Routine 12/01/2024 9:42 PM CDT POC GLUCOSE Routine 12/01/2024 4:55 PM CDT IR VENOUS ACCESS Routine 12/01/2024 2:29 PM CDT POC GLUCOSE Routine 12/01/2024 1:38 PM CDT OT EVAL AND TREAT Routine 12/01/2024 10:50 AM CDT POC GLUCOSE Routine 12/01/2024 8:16 AM CDT C-REACTIVE PROTEIN Routine 12/01/2024 5:19 AM CDT DIFFERENTIAL, MANUAL Routine 12/01/2024 5:19 AM CDT MAGNESIUM LEVEL Routine 12/01/2024 5:19 AM CDT CBC WITH DIFFERENTIAL Routine 12/01/2024 5:19 AM CDT RENAL FUNCTION PANEL Routine 12/01/2024 5:19 AM CDT POC GLUCOSE Routine 11/30/2024 11:07 PM CDT POC GLUCOSE Routine 11/30/2024 7:03 PM CDT POC GLUCOSE Routine 11/30/2024 12:17 PM CDT COLONOSCOPY REPORT 11/30/2024 10:32 AM CDT UPPER ENDOSCOPY REPORT 10:28 AM CDT POC GLUCOSE Routine 11/30/2024 9:29 AM CDT COLONOSCOPY 11/30/2024 8:00 AM CDT ESOPHAGOGASTRODUODENOSCOPY 11/30 8:00 AM CDT POC GLUCOSE Routine 11/30/2024 7:39 AM CDT POC GLUCOSE Routine 11/30/2024 3:52 AM CDT DIFFERENTIAL, MANUAL Routine 11/30/2024 1:27 AM CDT MAGNESIUM LEVEL Routine 11/30/2024 1:27 AM CDT CBC WITH DIFFERENTIAL Routine 11/30/2024 1:27 AM CDT RENAL FUNCTION PANEL Routine 11/30/2024 1:27 AM CDT POC GLUCOSE Routine 11/29/2024 11:50 PM CDT POC GLUCOSE Routine 11/29/2024 6:13 PM CDT POC GLUCOSE Routine 11/29/2024 1:54 PM CDT POC GLUCOSE Routine 11/29/2024 9:12 AM CDT HEPATIC FUNCTION PANEL Routine 12:35 AM CDT DIFFERENTIAL, MANUAL Routine 11/29/2024 12:35 AM CDT BASIC METABOLIC PANEL Routine 11/29/2024 12:35 AM CDT CBC WITH DIFFERENTIAL Routine 11/29/2024 12:35 AM CDT POC GLUCOSE Routine 11/28/2024 11:18 PM CDT POC GLUCOSE Routine 11/28/2024 5:34 PM CDT BASIC METABOLIC PANEL Stat 11/28/2024 2:25 PM CDT POC GLUCOSE Routine 11/28/2024 12:49 PM CDT CYTOLOGY, NON GYNE Pathology 11/28/2024 11:29 AM CDT ANAEROBIC/AEROBIC CULTURE W GRAM STAIN Routine 11/28/2024 11:[address] ABSCESS DRAIN PERCUTANEOUS Routine 11:28 AM CDT POC GLUCOSE Routine 11/28/2024 8:39 AM CDT POC GLUCOSE Routine 11/28/2024 5:39 AM CDT POC GLUCOSE Routine 11/28/2024 12:51 AM CDT POC GLUCOSE Routine 11/27/2024 8:16 PM CDT POC GLUCOSE Routine 11/27/2024 5:13 PM CDT POC GLUCOSE Routine 11/27/2024 12:11 PM CDT POC GLUCOSE Routine 11/27/2024 8:51 AM CDT POC GLUCOSE Routine 11/27/2024 5:16 AM CDT XR CHEST PA OR AP 1 VW Stat 5:13 AM CDT URINALYSIS W/REFLEX MICROSCOPIC Stat 11/27/2024 3:50 AM CDT TSH Routine 11/27/2024 3:26 AM CDT HEMOGLOBIN A1C Routine 11/27/2024 3:26 AM CDT COMPREHENSIVE METABOLIC PANEL Stat 3:26 AM CDT PROTIME-INR Stat 11/27/2024 3:26 AM CDT MAGNESIUM LEVEL Stat 11/27/2024 3:26 AM CDT CBC WITH DIFFERENTIAL Stat 11/27/2024 3:26 AM CDT BLOOD CULTURE Routine 11/27/2024 3:26 AM CDT BLOOD CULTURE Stat 11/27/2024 3:26 AM CDT BLOOD CULTURE Routine 11/27/2024 3:26 AM CDT BLOOD CULTURE Stat 11/27/2024 3:26 AM CDT POC GLUCOSE Routine 11/27/2024 2:28 AM CDT from Last 3 Months Results * TELEMETRY REPORT (12/13/2024 12:46 PM CDT) us Provider Scanning ECG ORDERABLES Final Result * (ABNORMAL) POC GLUCOSE (12/08/2024 9:13 AM CDT) Only the most recent of55 resultswithin the time period is included. Pathologist [facility] GLUCOSE POC 108(H) 74 - 99 mg/dL 12/08/2024 9:13 AM CDT [facility] SPECIMEN SOURCE, GLUCOSE POC Whole Blood 12/08/2024 9:13 AM CDT [facility] Blood, whole 12/08/2024 9:13 AM CDT 12/08/2024 9:21 AM CDT Stormy Horne MD POINT OF CARE TESTING Final Resu lt [facility] [employer] [facility]# [id number] [address] [place] [address] * (ABNORMAL) MANUAL DIFFERENTIAL (12/08/2024 5:21 AM CDT) Only the most recent of8 resultswithin the time period is included. Pathologist [facility] SEGMENTED NEUTROPHILS 86 % 12/08/2024 7:58 AM CDT [facility] LYMPHOCYTES RELATIVE 10(L) 43 - 53 % 12/08/2024 7:58 AM CDT [facility] MONOCYTES RELATIVE 4 % 12/08/2024 7:58 AM CDT [facility] NEUTROPHILS ABSOLUTE COUNT 9.76(H) 1.90 - 7.00 K/uL 12/08/2024 7:58 AM CDT [facility] LYMPHOCYTES ABSOLUTE 1.13 0.70 - 4.50 K/uL 12/08/2024 7:58 AM CDT [facility] MONOCYTES ABSOLUTE 0.41 0.10 - 1.30 K/uL 12/08/2024 7:58 AM CDT [facility] TOTAL CELLS COUNTED IN DIFF 110 12/08/2024 7:58 AM CDT [facility] RBC MORPHOLOGY abnormal 12/08/2024 7:58 AM CDT [facility] PLATELET EST. Consistent w Count 12/08/2024 7:58 AM CDT [facility] POLYCHROMASIA 1+ /hpf 12/08/2024 7:58 AM CDT [facility] HYPOCHROMIA 1+ /hpf 12/08/2024 7:58 AM CDT [facility] Blood Venipuncture / Unknown 12/08/2024 5:21 AM CDT 12/08/2024 5:54 AM CDT Stormy Horne MD HEMATOLOGY ORDERABLES COM Final Result [facility]# [id number] [address] [place] [address] * (ABNORMAL) CBC WITH DIFFERENTIAL (12/08/2024 5:21 AM CDT) Only the most recent of9 resultswithin the time period is included. WBC 11.3(H) 4.0 - 9.8 K/uL 12/08/2024 6:24 AM CDT [facility] RBC 2.67(L) 3.90 - 4.90 M/uL 12/08/2024 6:24 AM CDT [facility] - . [facility] HEMOGLOBIN 7.2(L) 11.8 - 14.8 g/dL 12/08/2024 6:24 AM CDT [facility] - [facility] HEMATOCRIT 20.7(L) 35.5 - 44.0 % 12/08/2024 6:24 AM CDT [facility] MCV 77.5(L) 82.0 - 99.0 fL 12/08/2024 6:24 AM CDT [facility] - [facility] MCH 27.0(L) 27.2 - 32.6 pg 12/08/2024 6:24 AM CDT [facility] MCHC 34.8 31.5 - 35.5 g/dL 12/08/2024 6:24 AM CDT [facility] - [facility] RDW 14.4 11.5 - 14.5 % 12/08/2024 6:24 AM CDT [facility] - [facility] RDW-STDEV 39.5 37.1 - 48.7 fL 12/08/2024 6:24 AM T [facility] - [facility] PLATELETS 488(H) 140 - 350 K/uL 12/08/2024 6:24 AM T [facility] - [facility] MPV 10.0 9.3 - 12.4 fL 12/08/2024 6:24 AM T [facility] - [facility] Blood Venipuncture / Unknown 12/08/2024 5:21 AM CDT 12/08/2024 5:54 AM CDT us Stormy Horne MD HEMATOLOGY ORDERABLES Final Resu lt [facility] [employer] [facility]# [id number] [address] [facility] [place] [place] [id number] * (ABNORMAL) BASIC METABOLIC PANEL (12/08/2024 5:21 AM CDT) Only the most recent of5 resultswithin the time period is included. SODIUM 131(L) 136 - 145 mmol/L 12/08/2024 6:36 AM CDT [facility] POTASSIUM 4.1 3.5 - 5.0 mmol/L 12/08/2024 6:36 AM CDT [facility] CHLORIDE 98 98 - 107 mmol/L 12/08/2024 6:36 AM [facility] CO2 25 22 - 29 mmol/L 12/08/2024 6:36 AM [facility] CALCIUM 8.6 8.6 - 10.2 mg/dL 12/08/2024 6:36 AM T [facility] BUN 16 8 - 23 mg/dL 12/08/2024 6:36 AM [facility] CREATININE 0.85 0.51 - 0.95 mg/dL 12/08/2024 6:36 AM [facility] Comment:The GFR result is no t clinically significant on patients <18 or >70 years of age. GLUCOSE 162(H) 74 - 99 mg/dL 12/08/2024 6:36 AM [facility] GFR >60 mL/min/1.7 3 sq meter 12/08/2024 6:36 AM [facility] Comment:eGFR calculated with 2020 CKD-EPI equation. Vegetarian diet, extremely high or low muscle mass, and may affect results. Cystatin C with Glomerular Filtration Rate is a suitable alternative for these patients. ANION GAP 8 8 - 16 mmol/L 12/08/2024 6:36 AM [facility] [employer] [facility] Blood Venipuncture / Unknown 12/08/2024 5:21 AM CDT 12/08/2024 5:54 AM CDT Stormy Horne MD CHEMISTRY ORDERABLES Final Resul t [facility] [employer] [id number] [address] [facility] [place] [id number] * RESPIRATORY PATHOGEN PCR PANEL (12/07/2024 2:54 PM CDT) Respiratory Pathogen PCR Panel NOT DETECTED No respiratory pathogen nucleic acids detected. 12/07/2024 4:50 PM CDT [facility] [employer] [facility] COVID-19 PCR NOT DETECTED Not Detected 12/07/2024 4:50 PM CDT [facility] Upper Respiratory ENTIRE NASOPHARYNX / Unknown Collection / Unknown 12/07/2024 2:54 PM CDT 12/07/2024 3:51 PM CDT Narrative [facility] - 12/07/2024 4:50 PM CDT The Film Array Respiratory Panel (RP2.1) is a multiplex nucleic acid detection test for 22 targets. Viruses: Adenovirus Coronavirus HKU1, NL63, 229E, and OC43 COVID-19/Severe Acute Respiratory Syndrome Coronavirus 2 Influenza A with the following subtypes: H1, H1-2009, and H3 Influenza B Human Metapneumovirus Parainfluenza virus 1, 2, 3, and 4 Respiratory Syncytial virus (RSV) Rhinovirus/Enterovirus (cannot differentiate due to genetic similarities) Bacteria: Bordetella pertussis Bordetella parapertussis Chlamydophila pneumoniae Mycoplasma pneumoniae Stormy Horne MD MICROBIOLOGY - GENERAL ORDERABLE S Final Result Performing Organization Address [facility]/ZIP Co de Phone Number [facility] CLIA# [id number] [address] [place] [address] * (ABNORMAL) C-REACTIVE PROTEIN (12/07/2024 5:53 AM CDT) Only the most recent of3 resultswithin the time period is included. CRP 151.0(H) <5.0 mg/L 12/07/2024 8:04 AM CDT [facility] Blood Venipuncture / Unknown 12/07/2024 5:53 AM CDT 12/07/2024 6:20 AM CDT Stormy Horne MD CHEMISTRY ORDERABLES Final Resul t Performing Organization Address [facility]/ZIP Co de Phone Number [facility] CLIA# [id number] [address] [place] [address] * IR TUBE PLACEMENT (12/06/2024 3:14 PM CDT) Anatomical Region Laterality Modality X-Ray Angiograph y 12/06/2024 3:42 PM CDT Impressions 12/06/2024 4:13 PM CDT IMPRESSION: Successful exchange of previously placed abscess drainage catheter with contrast monitoring under radiological guidance. DICTATION LOCATION: Location 1 - [facility] 12/06/2024 4:13 PM CDT EXAMINATION: ABSCESS DRAINAGE CATHETER EXCHANGE WITH CONTRAST MONITORING UNDER RADIOLOGICAL GUIDANCE DATE: 12/06/2024 3:14 PM HISTORY: 69 years-old Female with existing hepatic abscess drainage catheter. ANESTHESIA: The procedure was performed with local anesthesia. FLUOROSCOPY TIME : 3.2 minutes REFERENCE AIR KERMA DOSE: 99.39 mGy PHYSICIAN(S): Stanislaw Calixto MD TECHNIQUE: The risks, benefits and alternatives were discussed and informed consent was obtained. Prior to beginning the procedure, [place] Protocol was performed to confirm the patient's identity and the planned procedure. Maximum sterile barriers including cap, mask, hand hygiene, sterile gloves, sterile gown, and large sterile drape were used. 2% chlorhexidine was used for cutaneous antisepsis. The patient was placed in the supine position. The existing drainage catheter was injected with radiographic contrast and fluoroscopic images obtained. The skin was infiltrated with 1% lidocaine. The drainage cathter was cut, a guidewire was placed through the catheter, and with contrast monitoring, a directional catheter was used to reposition the guidewire within the collection before the existing drainage catheter was exchanged over the guidewire under radiological guidance. The 14French catheter was secured in place with a stitch. A sterile dressing was applied. ESTIMATED BLOOD LOSS: 1 cc. FINDINGS: Fluoroscopic images obtained after contrast injection show exisiting drainage catheter within the targeted collection. Images demonstrate persistent multiloculated hepatic abscess. Final fluoroscopic images after contrast injection show new drainage catheter within the targeted collection. The drainage catheter could not be repositioned significantly due to small size of the additional loculated areas. The patient tolerated the procedure without immediate complications. Procedure Note Stanislaw Calixto MD - 12/06/2024 EXAMINATION: ABSCESS DRAINAGE CATHETER EXCHANGE WITH CONTRAST MONITORING UNDER RADIOLOGICAL GUIDANCE DATE: 12/06/2024 3:14 PM HISTORY: 69 years-old Female with existing hepatic abscess drainage catheter. ANESTHESIA: The procedure was performed with local anesthesia. FLUOROSCOPY TIME : 3.2 minutes REFERENCE AIR KERMA DOSE: 99.39 mGy PHYSICIAN(S): Stanislaw Calixto MD TECHNIQUE: The risks, benefits and alternatives were discussed and informed consent was obtained. Prior to beginning the procedure, [place] Protocol was performed to confirm the patient's identity and the planned procedure. Maximum sterile barriers including cap, mask, hand hygiene, sterile gloves, sterile gown, and large sterile drape were used. 2% chlorhexidine was used for cutaneous antisepsis. The patient was placed in the supine position. The existing drainage catheter was injected with radiographic contrast and fluoroscopic images obtained. The skin was infiltrated with 1% lidocaine. The drainage cathter was cut, a guidewire was placed through the catheter, and with contrast monitoring, a directional catheter was used to reposition the guidewire within the collection before the existing drainage catheter was exchanged over the guidewire under radiological guidance. The 14French catheter was secured in place with a stitch. A sterile dressing was applied. ESTIMATED BLOOD LOSS: 1 cc. FINDINGS: Fluoroscopic images obtained after contrast injection show exisiting drainage catheter within the targeted collection. Images demonstrate persistent multiloculated hepatic abscess. Final fluoroscopic images after contrast injection show new drainage catheter within the targeted collection. The drainage catheter could not be repositioned significantly due to small size of the additional loculated areas. The patient tolerated the procedure without immediate complications. IMPRESSION: Successful exchange of previously placed abscess drainage catheter with contrast monitoring under radiological guidance. DICTATION LOCATION: Location 1 - [facility] Stanislaw Calixto MD IR ORDERABLES Final Result * CORTISOL LEVEL (12/06/2024 8:31 AM [facility]) CORTISOL LEVEL 19.6 ug/dL 12/06/2024 9:31 AM CDT [facility] [employer] [facility] Comment: Cortisol Reference Range Morning Hours 6-10 a.m. 6.0-18.4 ug/dL Afternoon Hours 4-8 p.m. 2.7-10.5 ug/dL Blood Venipuncture / Unknown 12/06/2024 8:31 AM CDT 12/06/2024 8:46 AM CDT Reed Matute MD CHEMISTRY ORDERABLES Final Re sult Performing Organization Address City/[facility]/ZIP Co de Phone Number [facility] [employer] [facility] [id number] [address] [place] [address] * TSH (12/06/2024 5:28 AM CDT) Only the most recent of2 resultswithin the time period is included. TSH 1.78 0.27 - 4.20 uIU/mL 12/06/2024 6:35 AM CDT [facility] [employer] [facility] Blood Venipuncture / Unknown 12/06/2024 5:28 AM CDT 12/06/2024 5:46 AM CDT Reed Matute MD CHEMISTRY ORDERABLES Final Re sult Performing Organization Address [facility]/ZIP Co de Phone Number [facility] [employer] [facility] CLIL# [id number] [address] [place] [address] * BLOOD CULTURE (12/05/2024 10:56 PM CDT) Only the most recent of4 resultswithin the time period is included. BLOOD CULTURE No growth 12/11/2024 2:45 AM CDT [facility] [employer] [facility] Blood (Peripheral) Venipuncture / Unknown 12/05/2024 10:56 PM CDT 12/06/2024 12:12 AM CDT Reed Matute MD MICROBIOLOGY - GENERAL ORDERA BLES Final Result Performing Organization Address [facility]/ZIP Co de Phone Number [facility] [employer] [facility]# [id number] [address] [place] [address] * ELECTROLYTES, RANDOM URINE (12/05/2024 9:38 PM CDT) SODIUM, URINE 117 mmol/L 12/05/2024 10:04 PM CDT [facility] POTASSIUM, URINE 11.7 mmol/L 12/05/2024 10:04 PM CDT [facility] CHLORIDE, URINE 85 mmol/L 12/05/2024 10:04 PM CDT [facility] Urine URINE SPECIMEN OBTAINED BY CLEAN CATCH PROCEDURE / Unknown Collection / Unknown 12/05/2024 9:38 PM CDT 12/05/2024 9:42 PM CDT [facility] [employer] [facility] - 12/05/2024 10:04 PM CDT Reference Range Not Established Reed Matute MD URINE ORDERABLES Final Result Performing Organization Address City/[facility]/ZIP Co de Phone Number [facility]# [id number] [address] [place] [address] * OSMOLALITY, URINE (12/05/2024 9:38 PM CDT) OSMOLALITY, URINE 422 50 - 1,200 mOsm/kg 12/05/2024 9:58 PM CDT [facility] Urine URINE SPECIMEN OBTAINED BY CLEAN CATCH PROCEDURE / Unknown Collection / Unknown 12/05/2024 9:38 PM CDT 12/05/2024 9:42 PM CDT [facility] [employer] [facility] - 12/05/2024 9:58 PM CDT Reference range: 50-1200 mOsm/kg H2O, depending on fluid intake. Reed Matute MD URINE ORDERABLES Final Result [facility] CLIA# [id number] [address] [place] [address] * (ABNORMAL) RENAL FUNCTION PANEL (12/05/2024 8:44 AM CDT) Only the most recent of6 resultswithin the time period is included. SODIUM 130(L) 136 - 145 mmol/L 12/05/2024 10:00 AM [facility] [employer] [facility] POTASSIUM 4.7 3.5 - 5.0 mmol/L 12/05/2024 10:00 AM [facility] [employer] [facility] CHLORIDE 96(L) 98 - 107 mmol/L 12/05/2024 10:00 AM [facility] [employer] [facility] CO2 26 22 - 29 mmol/L 12/05/2024 10:00 AM [facility] [employer] [facility] CALCIUM 9.3 8.6 - 10.2 mg/dL 12/05/2024 10:00 AM [facility] [employer] [facility] BUN 12 8 - 23 mg/dL 12/05/2024 10:00 AM [facility] [employer] [facility] CREATININE 0.77 0.51 - 0.95 mg/dL 12/05/2024 10:00 AM [facility] Comment:The GFR result is no t clinically significant on patients <18 or >70 years of age. GLUCOSE 145(H) 74 - 99 mg/dL 12/05/2024 10:00 AM [facility] [employer] [facility] ALBUMIN 2.9(L) 3.5 - 5.2 g/dL 12/05/2024 10:00 AM [facility] [employer] [facility] PHOSPHORUS 3.0 2.5 - 4.5 mg/dL 12/05/2024 10:00 AM [facility] GFR >60 mL/min/1.7 3 sq meter 12/05/2024 10:00 AM [facility] Comment:eGFR calculated with 2020 CKD-EPI equation. Vegetarian diet, extremely high or low muscle mass, and may affect results. Cystatin C with Glomerular Filtration Rate is a suitable alternative for these patients. ANION GAP 8 8 - 16 mmol/L 12/05/2024 10:00 AM [facility] [employer] [facility] Blood Venipuncture / Unknown 12/05/2024 8:44 AM CDT 12/05/2024 9:13 AM CDT Reed Matute MD CHEMISTRY ORDERABLES Final Re sult Performing Organization Address [facility]/ZIP Co de Phone Number [facility] [employer] [facility]# [id number] [address] [place] [address] * MAGNESIUM LEVEL (12/04/2024 5:53 AM CDT) Only the most recent of6 resultswithin the time period is included. MAGNESIUM 2.0 1.6 - 2.4 mg/dL 12/04/2024 7:05 AM CDT [facility] Blood Venipuncture / Unknown 12/04/2024 5:53 AM CDT 12/04/2024 6:25 AM CDT Reed Matute MD CHEMISTRY ORDERABLES Final Re sult Performing Organization Address [facility] Co de Phone Number [facility] [employer] [facility] [id number] [address] [place] [address] * XR PANOREX (12/03/2024 9:47 AM CDT) Anatomical Region Laterality Modality Head Computed Radiogr aphy 12/03/2024 9:47 AM CDT Impressions 12/03/2024 7:30 PM CDT : 1. Multiple teeth are absent. 2. No evidence of dental abscess. 3. No fracture or dislocation in the mandible. DICTATION LOCATION: Location 2 - [facility] Narrative 12/03/2024 7:30 PM CDT XR PANOREX DATE: 12/03/2024 9:47 AM HISTORY: Tooth Pain. Arthritis; Imaging of gastrointestinal tract abnormal COMPARISON: None TECHNIQUE: Routine Panorex view of the mandible FINDINGS: No fracture or dislocation is seen in the mandible. Teeth numbers 13, 14, 16, 17, 19, 29, 30, 31, and 32 are absent. There is no evidence of periapical abscess. Mayco Amador MD DIAGNOSTIC IMAGING ORDERABLES nal Result * ECHOCARDIOGRAM W/ CONTRAST AGENT (12/03/2024 8:45 AM CDT) EJECTION FRACTION 64 INTERFACE SYSTEM 12/03/2024 8:26 AM CDT Narrative INTERFACE SYSTEM - 12/03/2024 2:43 PM CDT [address] [address] [email or web address] Transthoracic Echocardiogram Patient: Rani Mederos Study ID: ECHO LIMITED W C Gender: F : 1955 Age: 69 Race: [facility] Height 162.6cm Study Date: 12/03/2024 Weight: 77.3kg Access. #: [id number] BP: *Referring Physician:* Reed Matute *Ordering Physician:* Reed Matute freight car repairer: Nurse: Indications: Hypervolemia. STUDY CONCLUSIONS: SUMMARY: - Left ventricle: The cavity size was normal. Wall thickness was increased in a pattern of mild LVH. Global systolic function is normal. For Epic reporting: the left ventricular ejection fraction is 64% . Diastolic function assessment consistent with abnormal left ventricular relaxation (grade 1 diastolic dysfunction). - Left atrium: The atrium is normal in size. - Right ventricle: The cavity size is normal. Systolic function is normal. - Pulmonary arteries: Systolic pressure was within the normal range. Cardiac Anatomy: LEFT VENTRICLE: The cavity size was normal. Wall thickness was increased in a pattern of mild LVH. Global systolic function is normal. For Epic reporting: the left ventricular ejection fraction is 64% . Wall motion is normal; there are no regional wall motion abnormalities. Diastolic function assessment consistent with abnormal left ventricular relaxation (grade 1 diastolic dysfunction). AORTIC VALVE: Structurally normal valve. Trileaflet. There was no stenosis. No significant regurgitation. The mean systolic gradient is 7mm Hg. The peak systolic gradient is 11mm Hg. The LVOT to aortic valve VTI ratio is 0.71. The valve area is 2.4cm^2. The ratio of LVOT to aortic valve peak velocity is 0.62. AORTA: Aortic root: The root is normal-sized. MITRAL VALVE: Structurally normal valve. There is no evidence for stenosis. No significant regurgitation. The mean diastolic gradient is 4mm Hg. The peak diastolic gradient is 6mm Hg. LEFT ATRIUM: The atrium is normal in size. RIGHT VENTRICLE: The cavity size is normal. Systolic function is normal. PULMONIC VALVE: Structurally normal valve. No significant regurgitation. TRICUSPID VALVE: Structurally normal valve. No significant regurgitation. PULMONARY ARTERY: Systolic pressure was within the normal range. RIGHT ATRIUM: The atrium was normal in size. SYSTEMIC VEINS: Inferior vena cava: The IVC is normal-sized. PERICARDIUM: There is no pericardial effusion. Measurements Left ventricle Value Ref IVS, ED, LAX (H) 1.2 cm 0.6 - 0.9 KENNEDI, LAX (L) 2.9 cm 3.8 - 5.2 KENNEDI/bsa, LAX (L) 1.6 cm/m^2 2.3 - 3.1 KENNEDI, LAX chord (N) 4.3 cm 3.8 - 5.2 ESD, LAX chord (N) 2.9 cm 2.2 - 3.5 KENNEDI/bsa, LAX chord (N) 2.3 cm/m^2 2.3 - 3.1 ESD/bsa, LAX chord (N) 1.6 cm/m^2 1.3 - 2.1 FS, LAX chord (N) 33 % 27 - 45 IVS, ED (H) 1.2 cm 0.6 - 0.9 PW, ED (H) 1.2 cm 0.6 - 0.9 EDV, 2-p (H) 118 ml 46 - 106 ESV, 2-p (N) 42 ml 14 - 42 EF, 2-p (N) 64 % 54 - 74 SV, 2-p 76 ml --------- SV/bsa, 2-p 41.4 ml/m^2 --------- E', lat caitlin, TDI (L) 9.6 cm/sec >=10.0 E/e', lat caitlin, TDI (N) 9 <=13 E', med caitlin, TDI (N) 9.6 cm/sec >=7.0 E/e', med caitlin, TDI 9 --------- E', avg, TDI 9.6 cm/sec --------- E/e', avg, TDI (N) 9 <=14 LVOT Value Ref Diam, S 2.1 cm --------- Area 3.5 cm^2 --------- Peak simran, S 1.03 m/sec --------- VTI, S 24.0 cm --------- Right ventricle Value Ref TAPSE, MM (N) 2.0 cm >=1.7 Pressure, S 34 mm Hg --------- S' lateral (N) 10.3 cm/sec >=9.5 Left atrium Value Ref AP dim, ES (N) 2.9 cm 2.7 - 3.8 AP dim index, ES (N) 1.6 cm/m^2 1.5 - 2.3 SI dim, A4C 4.5 cm --------- Area ES, A4C (N) 14 cm^2 <=20 Area/bsa ES, A4C 7.49 cm^2/m^2 --------- SI dim, A2C 5.6 cm --------- SI dim, shorter 4.5 cm --------- Vol, ES, 1-p A2C (H) 60 ml 22 - 52 Vol/bsa, ES, 1-p A2C (N) 33 ml/m^2 13 - 40 Vol, ES, 2-p 49 ml --------- Vol/bsa, ES, 2-p (N) 27 ml/m^2 16 - 34 LA/Ao root ratio 1.07 --------- Right atrium Value Ref SI dim, ES, A4C (N) 4.1 cm 3.4 - 5.3 SI dim/bsa, ES, A4C (N) 2.2 cm/m^2 1.9 - 3.1 Area, ES, A4C (N) 12 cm^2 10 - 18 Vol, ES, 1-p A4C 26 ml --------- Vol/bsa, ES, 1-p A4C (N) 14 ml/m^2 9 - 33 Aortic valve Value Ref Peak v, S 1.7 m/sec --------- Mean v, S 1.32 m/sec --------- VTI, S 34.0 cm --------- Mean grad, S 7 mm Hg --------- Peak grad, S 11 mm Hg --------- LVOT/AV, VTI ratio 0.71 --------- BRANDON, VTI 2.4 cm^2 --------- BRANDON/bsa, VTI 1.33 cm^2/m^2 --------- LVOT/AV, Vpeak ratio 0.62 --------- BRANDON, Vmax 2.5 cm^2 --------- BRANDON/bsa, Vmax 1.36 cm^2/m^2 --------- Mitral valve Value Ref Mean v, D 0.96 m/sec --------- Peak E 0.89 m/sec --------- Peak A 1.15 m/sec --------- Decel time 170 ms --------- PHT 50 ms --------- Mean grad, D 4 mm Hg --------- Peak grad, D 6 mm Hg --------- Peak E/A ratio 0.8 --------- A-VTI 27.9 cm --------- MVA, PHT 4.4 cm^2 --------- MVA/bsa, PHT 2.4 cm^2/m^2 --------- Pulmonic valve Value Ref Peak v, S 1.09 m/sec --------- Peak grad, S 5 mm Hg --------- Tricuspid valve Value Ref TR peak v (N) 2.5 m/sec <=2.8 Peak RV-RA grad, S 29 mm Hg --------- Aortic root Value Ref Root diam, 2.7 cm --------- Pulmonary artery Value Ref Pressure, S 29 mm Hg --------- Systemic veins Value Ref Estimated RA pressure 5 mm Hg --------- Legend: (L) and (H) shelli values outside specified reference range. (N) heredia values inside specified reference range. Procedure data: Procedure information: A transthoracic echocardiogram was performed. Scanning was performed from the parasternal, apical, and subcostal acoustic windows. Intravenous contrast (Definity) was administered. Transthoracic echocardiogram. Complete 2D, complete spectral Doppler, and color Doppler. Birthdate: Patient birthdate: 1955. Age: Patient is 69year(s) old. Sex: gender: female. Height: 162.6cm. 64in. Weight: 77.3kg. 170.5lb. Body mass index: 29.3kg/m^2. Body surface area: 1.83m^2. Study date: Study date: 12/03/2024. Study time: 08:26 AM. Prepared and Electronically Authenticated Ministerio Hernandez MD [id number] Procedure Note Ministerio Hernandez MD - 12/03/2024 [place] [address] [email or web address] [email or web address] Echocardiogram Patient: Rani Mederos Study ID: ECHO LIMITED W C Gender: F : 1955 Age: 69 Race: OT Height 162.6cm Study Date: 12/03/2024 Weight: 77.3kg Access. #: [id number] BP: *Referring Physician:* Reed Matute *Ordering Physician:* Reed Matute freight car repairer: Nurse: Indications: Hypervolemia. STUDY CONCLUSIONS: SUMMARY: - Left ventricle: The cavity size was normal. Wall thickness was increasedin a pattern of mild LVH. Global systolic function is normal. For Epic reporting: the left ventricular ejection fraction is 64% . Diastolic function assessment consistent with abnormal left ventricularrelaxation (grade 1 diastolic dysfunction). - Left atrium: The atrium is normal in size. - Right ventricle: The cavity size is normal. Systolic function isnormal. - Pulmonary arteries: Systolic pressure was within the normal range. Cardiac Anatomy: LEFT VENTRICLE: The cavity size was normal. Wall thickness was increasedin a pattern of mild LVH. Global systolic function is normal. For Epicreporting: the left ventricular ejection fraction is 64% . Wall motion is normal;there are no regional wall motion abnormalities. Diastolic function assessment consistent with abnormal left ventricular relaxation (grade 1 diastolic dysfunction). AORTIC VALVE: Structurally normal valve. Trileaflet. There was nostenosis. No significant regurgitation. The mean systolic gradient is 7mm Hg.The peak systolic gradient is 11mm Hg. The LVOT to aortic valve VTI ratio is0.71. The valve area is 2.4cm^2. The ratio of LVOT to aortic valve peak velocityis 0.62. AORTA: Aortic root: The root is normal-sized. MITRAL VALVE: Structurally normal valve. There is no evidence for stenosis. No significant regurgitation. The mean diastolic gradient is4mm Hg. The peak diastolic gradient is 6mm Hg. LEFT ATRIUM: The atrium is normal in size. RIGHT VENTRICLE: The cavity size is normal. Systolic function isnormal. PULMONIC VALVE: Structurally normal valve. No significantregurgitation. TRICUSPID VALVE: Structurally normal valve. No significantregurgitation. PULMONARY ARTERY: Systolic pressure was within the normal range. RIGHT ATRIUM: The atrium was normal in size. SYSTEMIC VEINS: Inferior vena cava: The IVC is normal-sized. PERICARDIUM: There is no pericardial effusion. Measurements Left ventricle Value Ref IVS, ED, LAX (H) 1.2 cm 0.6 - 0.9 KENNEDI, LAX (L) 2.9 cm 3.8 - 5.2 KENNEDI/bsa, LAX (L) 1.6 cm/m^2 2.3 - 3.1 KENNEDI, LAX chord (N) 4.3 cm 3.8 - 5.2 ESD, LAX chord (N) 2.9 cm 2.2 - 3.5 KENNEDI/bsa, LAX chord (N) 2.3 cm/m^2 2.3 - 3.1 ESD/bsa, LAX chord (N) 1.6 cm/m^2 1.3 - 2.1 FS, LAX chord (N) 33 % 27 - 45 IVS, ED (H) 1.2 cm 0.6 - 0.9 PW, ED (H) 1.2 cm 0.6 - 0.9 EDV, 2-p (H) 118 ml 46 - 106 ESV, 2-p (N) 42 ml 14 - 42 EF, 2-p (N) 64 % 54 - 74 SV, 2-p 76 ml --------- SV/bsa, 2-p 41.4 ml/m^2 --------- E', lat caitlin, TDI (L) 9.6 cm/sec >=10.0 E/e', lat caitlin, TDI (N) 9 <=13 E', med caitlin, TDI (N) 9.6 cm/sec >=7.0 E/e', med caitlin, TDI 9 --------- E', avg, TDI 9.6 cm/sec --------- E/e', avg, TDI (N) 9 <=14 LVOT Value Ref Diam, S 2.1 cm --------- Area 3.5 cm^2 --------- Peak simran, S 1.03 m/sec --------- VTI, S 24.0 cm --------- Right ventricle Value Ref TAPSE, MM (N) 2.0 cm >=1.7 Pressure, S 34 mm Hg --------- S' lateral (N) 10.3 cm/sec >=9.5 Left atrium Value Ref AP dim, ES (N) 2.9 cm 2.7 - 3.8 AP dim index, ES (N) 1.6 cm/m^2 1.5 - 2.3 SI dim, A4C 4.5 cm --------- Area ES, A4C (N) 14 cm^2 <=20 Area/bsa ES, A4C 7.49 cm^2/m^2 --------- SI dim, A2C 5.6 cm --------- SI dim, shorter 4.5 cm --------- Vol, ES, 1-p A2C (H) 60 ml 22 - 52 Vol/bsa, ES, 1-p A2C (N) 33 ml/m^2 13 - 40 Vol, ES, 2-p 49 ml --------- Vol/bsa, ES, 2-p (N) 27 ml/m^2 16 - 34 LA/Ao root ratio 1.07 --------- Right atrium Value Ref SI dim, ES, A4C (N) 4.1 cm 3.4 - 5.3 SI dim/bsa, ES, A4C (N) 2.2 cm/m^2 1.9 - 3.1 Area, ES, A4C (N) 12 cm^2 10 - 18 Vol, ES, 1-p A4C 26 ml --------- Vol/bsa, ES, 1-p A4C (N) 14 ml/m^2 9 - 33 Aortic valve Value Ref Peak v, S 1.7 m/sec --------- Mean v, S 1.32 m/sec --------- VTI, S 34.0 cm --------- Mean grad, S 7 mm Hg --------- Peak grad, S 11 mm Hg --------- LVOT/AV, VTI ratio 0.71 --------- BRANDON, VTI 2.4 cm^2 --------- BRANDON/bsa, VTI 1.33 cm^2/m^2 --------- LVOT/AV, Vpeak ratio 0.62 --------- BRANDON, Vmax 2.5 cm^2 --------- BRANDON/bsa, Vmax 1.36 cm^2/m^2 --------- Mitral valve Value Ref Mean v, D 0.96 m/sec --------- Peak E 0.89 m/sec --------- Peak A 1.15 m/sec --------- Decel time 170 ms --------- PHT 50 ms --------- Mean grad, D 4 mm Hg --------- Peak grad, D 6 mm Hg --------- Peak E/A ratio 0.8 --------- A-VTI 27.9 cm --------- MVA, PHT 4.4 cm^2 --------- MVA/bsa, PHT 2.4 cm^2/m^2 --------- Pulmonic valve Value Ref Peak v, S 1.09 m/sec --------- Peak grad, S 5 mm Hg --------- Tricuspid valve Value Ref TR peak v (N) 2.5 m/sec <=2.8 Peak RV-RA grad, S 29 mm Hg --------- Aortic root Value Ref Root diam, 2.7 cm --------- Pulmonary artery Value Ref Pressure, S 29 mm Hg --------- Systemic veins Value Ref Estimated RA pressure 5 mm Hg --------- Legend: (L) and (H) shelli values outside specified reference range. (N) heredia values inside specified reference range. Procedure data: Procedure information: A transthoracic echocardiogram was performed.Scanning was performed from the parasternal, apical, and subcostal acousticwindows. Intravenous contrast (Definity) was administered. Transthoracic echocardiogram. Complete 2D, complete spectral Doppler, and colorDoppler. Birthdate: Patient birthdate: 1955. Age: Patient is 69year(s)old. Sex: gender: female. Height: 162.6cm. 64in. Weight: 77.3kg. 170.5lb. Body mass index: 29.3kg/m^2. Body surface area: 1.83m^2.Study date: Study date: 12/03/2024. Study time: 08:26 AM. Prepared and Electronically Authenticated Ministerio Hernandez MD [id number] us Reed Matute MD ORDERABLES Final Result INTERFACE SYSTEM Refer to clinic/hospital department * (ABNORMAL) BRAIN NATRIURETIC PEPTIDE, BNP OR PROBNP (12/03/2024 5:29 AM CDT) PROBNP, N TERMINAL 670(H) <124 pg/mL 12/03/2024 6:43 AM CDT [facility] Comment: INTERPRETIVE COMMENT based on diagnosis: Diagnostic NT pro-BNP cutoffs for Heart Failure in the absence of renal failure is suggested for the following ranges <75 years: <125 pg/mL >=75 years: <450 pg/mL Exclusionary rule out cut-point for Acute Decompensated Heart Failure(ADHF) All ages: <300 pg/mL Diagnostic NT pro-BNP cutoffs for Acute Decompensated Heart Failure(ADHF) in the absence of renal failure is suggested for the following ages <50 years: > 450 pg/mL 50-75 years: > 900 pg/mL >75 years: >1800 pg/mL Blood Venipuncture / Unknown 12/03/2024 5:29 AM CDT 12/03/2024 5:41 AM CDT us Reed Matute MD CHEMISTRY ORDERABLES Final Re sult [facility]# [id number] [address] [facility] [address] * CT ABDOMEN PELVIS W CONTRAST (12/03/2024 5:07 AM CDT) Anatomical Region Laterality Modality Abdomen Computed Tomogra phy 12/03/2024 4:55 AM CDT Impressions 12/03/2024 3:30 PM CDT IMPRESSION: Interval catheter placement within a multiloculated left hepatic lobe collection which measures slightly increased in size. Internal gas now seen, which may be postprocedural. New trace perihepatic fluid. A more loculated perihepatic collection with gas along the anterior left hepatic lobe, along the catheter track may be postprocedural, though evolving abscess is not excluded. New small bilateral pleural effusions and bibasilar atelectasis. New diffuse mild subcutaneous fatty infiltration which may be related to edema. A focal hyperdense nodule with gas in the subcutaneous right anterior pelvis may be result of medication injection. Other findings are unchanged. The examination was performed with the adjustment of mA according to the patient size and/or the use of Iterative Reconstruction Technique. DICTATION LOCATION: Location 9 [facility] Narrative 12/03/2024 3:30 PM CDT COMPUTED TOMOGRAPHY OF THE ABDOMEN AND PELVIS WITH IV CONTRAST DATE: 12/03/2024 5:07 AM HISTORY: 69-year-old female with liver abscess. COMPARISON: 11/26/2024 TECHNIQUE: Axial CT images were obtained from the diaphragm through the symphysis pubis following the administration of intravenous contrast material. Coronal and sagittal reformatted images were performed. CONTRAST: IOPAMIDOL 61 % INTRAVENOUS SOLUTION (MULTI-DOSE BULK PACK) Given:75 mL FINDINGS: There are new small bilateral pleural effusions. New bilateral lower lobe and lingular atelectasis. There has been interval placement of a drainage catheter within the multiloculated low-density collection in the left hepatic lobe. New gas seen within the collection, likely postprocedural in nature. The collection is slightly increased in size measuring 9.7 x 4.8 cm (series 301, image 48) compared with 8.7 x 4.7 cm previously. No new focal hepatic lesions are noted. 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 New trace perihepatic fluid noted. A small mildly rim-enhancing fluid collection with gas is seen along the anterior margin of the left hepatic lobe measuring 4.8 x 1.6 cm. Surrounding mild fatty infiltration seen, which may be postprocedural. The gallbladder is absent. The spleen, adrenal glands, and pancreas are unremarkable. Small right renal cysts and subcentimeter bilateral low-density renal lesions are stable. There is no hydronephrosis or hydroureter. Moderate bilateral perinephric stranding is stable. The bladder is decompressed. The uterus is absent. Colonic diverticulosis redemonstrated. There is a stable 3.4 cm gas/fluid-filled saccular lesion along the mid sigmoid colon which is of uncertain clinical significance and could represent a large diverticulum (series 301, image 120). No lymphadenopathy noted. Small bilateral fat-containing inguinal hernias are stable. New diffuse mild subcutaneous fatty infiltration noted. More focal subcutaneous thickening and stranding in the right anterior abdomen is stable. Hyperdense nodule with gas in the subcutaneous anterior right pelvis may be the result of medication injection. No concerning osseous lesions. Procedure Note Taylor Vargas MD - 12/03/2024 COMPUTED TOMOGRAPHY OF THE ABDOMEN AND PELVIS WITH IV CONTRAST DATE: 12/03/2024 5:07 AM HISTORY: 69-year-old female with liver abscess. COMPARISON: 11/26/2024 TECHNIQUE: Axial CT images were obtained from the diaphragm through the symphysis pubis following the administration of intravenous contrast material. Coronal and sagittal reformatted images were performed. CONTRAST: IOPAMIDOL 61 % INTRAVENOUS SOLUTION (MULTI-DOSE BULK PACK) Given:75 mL FINDINGS: There are new small bilateral pleural effusions. New bilateral lower lobe and lingular atelectasis. There has been interval placement of a drainage catheter within the multiloculated low-density collection in the left hepatic lobe. New gas seen within the collection, likely postprocedural in nature. The collection is slightly increased in size measuring 9.7 x 4.8 cm (series 301, image 48) compared with 8.7 x 4.7 cm previously. No new focal hepatic lesions are noted. 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 New trace perihepatic fluid noted. A small mildly rim-enhancing fluid collection with gas is seen along the anterior margin of the left hepatic lobe measuring 4.8 x 1.6 cm. Surrounding mild fatty infiltration seen, which may be postprocedural. The gallbladder is absent. The spleen, adrenal glands, and pancreas are unremarkable. Small right renal cysts and subcentimeter bilateral low-density renal lesions are stable. There is no hydronephrosis or hydroureter. Moderate bilateral perinephric stranding is stable. The bladder is decompressed. The uterus is absent. Colonic diverticulosis redemonstrated. There is a stable 3.4 cm gas/fluid-filled saccular lesion along the mid sigmoid colon which is of uncertain clinical significance and could represent a large diverticulum (series 301, image 120). No lymphadenopathy noted. Small bilateral fat-containing inguinal hernias are stable. New diffuse mild subcutaneous fatty infiltration noted. More focal subcutaneous thickening and stranding in the right anterior abdomen is stable. Hyperdense nodule with gas in the subcutaneous anterior right pelvis may be the result of medication injection. No concerning osseous lesions. IMPRESSION: Interval catheter placement within a multiloculated left hepatic lobe collection which measures slightly increased in size. Internal gas now seen, which may be postprocedural. New trace perihepatic fluid. A more loculated perihepatic collection with gas along the anterior left hepatic lobe, along the catheter track may be postprocedural, though evolving abscess is not excluded. New small bilateral pleural effusions and bibasilar atelectasis. New diffuse mild subcutaneous fatty infiltration which may be related to edema. A focal hyperdense nodule with gas in the subcutaneous right anterior pelvis may be result of medication injection. Other findings are unchanged. The examination was performed with the adjustment of mA according to the patient size and/or the use of Iterative Reconstruction Technique. DICTATION LOCATION: Location 9 [facility] us Mayco Amador MD CT ORDERABLES Final Result * XR ABDOMEN 1 VW (12/02/2024 9:05 AM CDT) Anatomical Region Laterality Modality Abdomen Computed Radiogr aphy 12/02/2024 9:05 AM CDT Impressions 12/02/2024 10:09 AM CDT IMPRESSION: Bowel gas pattern is unremarkable. Pigtail drainage catheter overlying the epigastric region. DICTATION LOCATION: Location 1 - [facility] Narrative 12/02/2024 10:09 AM CDT ABDOMEN DATE: 12/02/2024 9:05 AM HISTORY: Abdomen Distension. See Reason for Exam COMPARISON: CT of 11/26/2024 FINDINGS: AP portable supine view of the abdomen demonstrates a pigtail drainage catheter overlying the epigastric region. Scattered stool and gas is noted throughout the colon. Scattered small bowel gas is seen. A mild to moderate amount of gas is noted within the stomach. No dilated loops of bowel are evident. Moderate degenerative change of the lower lumbar spine is noted. INCIDENTAL FINDINGS: None. Procedure Note Abril Jay MD - 12/02/2024 ABDOMEN DATE: 12/02/2024 9:05 AM HISTORY: Abdomen Distension. See Reason for Exam COMPARISON: CT of 11/26/2024 FINDINGS: AP portable supine view of the abdomen demonstrates a pigtail drainage catheter overlying the epigastric region. Scattered stool and gas is noted throughout the colon. Scattered small bowel gas is seen. A mild to moderate amount of gas is noted within the stomach. No dilated loops of bowel are evident. Moderate degenerative change of the lower lumbar spine is noted. INCIDENTAL FINDINGS: None. IMPRESSION: Bowel gas pattern is unremarkable. Pigtail drainage catheter overlying the epigastric region. DICTATION LOCATION: Location [address] [place] [address] Reed Matute MD DIAGNOSTIC IMAGING ORDERABLES Final Result * XR CHEST PA OR AP 1 VW (12/02/2024 9:05 AM CDT) Only the most recent of2 resultswithin the time period is included. Anatomical Region Laterality Modality Chest Computed Radiogr aphy 12/02/2024 9:05 AM CDT Impressions 12/02/2024 10:09 AM CDT IMPRESSION: Mild left basilar infiltrate or atelectasis. Findings suggesting early fluid overload. DICTATION LOCATION: [address] Narrative 12/02/2024 10:09 AM CDT CHEST, SINGLE VIEW DATE: 12/02/2024 9:05 AM HISTORY: Other - Please see comments, Comment: PNA r/o. See Reason for Exam COMPARISON: 11/27/2024 FINDINGS: AP portable upright view of the chest demonstrates the heart to be within normal limits in size. Mild prominence of the central pulmonary vasculature is noted suggesting early fluid overload. Mild left basilar infiltrate or atelectasis is noted. No effusions or pneumothorax is evident. A pigtail drainage catheter overlies the left upper abdomen. INCIDENTAL FINDINGS: None. Procedure Note Abril Jay MD - 12/02/2024 CHEST, SINGLE VIEW DATE: 12/02/2024 9:05 AM HISTORY: Other - Please see comments, Comment: PNA r/o. See Reason for Exam COMPARISON: 11/27/2024 FINDINGS: AP portable upright view of the chest demonstrates the heart to be within normal limits in size. Mild prominence of the central pulmonary vasculature is noted suggesting early fluid overload. Mild left basilar infiltrate or atelectasis is noted. No effusions or pneumothorax is evident. A pigtail drainage catheter overlies the left upper abdomen. INCIDENTAL FINDINGS: None. IMPRESSION: Mild left basilar infiltrate or atelectasis. Findings suggesting early fluid overload. DICTATION LOCATION: Location [address] [place] [address] Reed Matute MD DIAGNOSTIC IMAGING ORDERABLES Final Result * (ABNORMAL) HEPATIC FUNCTION PANEL (12/02/2024 3:17 AM CDT) Only the most recent of2 resultswithin the time period is included. TOTAL PROTEIN 6.5(L) 6.7 - 8.6 g/dL 12/02/2024 2:31 PM CDT [facility] ALBUMIN 2.7(L) 3.5 - 5.2 g/dL 12/02/2024 2:31 PM CDT [facility] BILIRUBIN TOTAL 0.9 0.0 - 1.1 mg/dL 12/02/2024 2:31 PM CDT [facility] BILIRUBIN DIRECT 0.6(H) <0.4 mg/dL 12/03/19 2:31 PM CDT [facility] ALKALINE PHOSPHATASE 182(H) 35 - 104 U/L 12/02/2024 2:31 PM CDT [facility] AST 47(H) <33 U/L 12/02/2024 2:31 PM CDT [facility] ALT 38(H) <34 U/L 12/02/2024 2:31 PM CDT [facility] Blood Venipuncture / Unknown 12/02/2024 3:17 AM CDT 12/02/2024 3:23 AM CDT Narrative [facility] - 12/02/2024 2:31 PM CDT Samples containing indocyanine green cause interferences on Total and/or Direct Bilirubin and must not be measured. us Mayco Amador MD CHEMISTRY ORDERABLES Final Resul t [facility]# [id number] [address] [facility] [place] [address] * IR VENOUS ACCESS (12/01/2024 2:29 PM CDT) Narrative 12/01/2024 2:30 PM CDT Order information only. Exam was auto-finalized. us Mayco Amador MD IR ORDERABLES Final Result * COLONOSCOPY REPORT (11/30/2024 10:32 AM CDT) Narrative Procedure Note Michael Wise MD - 11/30/2024 10:32 AM CDT [facility] Endoscopy Patient Name: Rani Mederos Procedure Date: 11/30/2024 Date of : 1955 Attending MD: Michael Wise , , Procedure: Colonoscopy Indications: Iron deficiency anemia secondary to chronic blood loss, Abnormal CT of the GI tract, liver abscess suspect colon source Providers: Michael Wise Referring MD: Complications: No immediate complications. Procedure: Informed consent was obtained for the procedure, including moderate sedation after risks were discussed. Based on the pre-procedure assessment, including review of the patient's medical history, medications, allergies, and review of systems, the patient was deemed to be an appropriate candidate for sedation. A timeout was performed. Continuous ECG monitoring, pulse oximetry, blood pressure monitoring, and direct observation were performed. The Colonoscope was introduced through the anus and advanced to the terminal ileum, with identification of the appendiceal orifice and IC valve. The colonoscopy was performed without difficulty. The quality of the bowel preparation was good. Estimated Blood Loss: Estimated blood loss: none. Findings: Multiple diverticula were found in the entire colon. The exam was otherwise normal throughout the examined colon. The terminal ileum appeared normal. Impression: - Diverticulosis in the entire examined colon. - The examined portion of the ileum was normal. - No specimens collected. Recommendation: No additional GI investigation. Suspect anemia and weight loss are due to liver abscess. Abscess management per ID. GI will sign off. Michael Wise, 11/30/2024 10:32:05 AM Number of Addenda: [phone]; [place] [address] Michael Wise MD GI PROCEDURE ORDERABLES Final Re sult * UPPER ENDOSCOPY REPORT (11/30/2024 10:28 AM CDT) Narrative Procedure Note Michael Wise MD - 11/30/2024 10:28 AM CDT [facility] Endoscopy Patient Name: Rani Mederos Procedure Date: 11/30/2024 Date of : 1955 Attending MD: Michael Wise , , Procedure: Upper GI endoscopy Indications: Suspected upper gastrointestinal bleeding in patient with unexplained iron deficiency anemia, Weight loss Providers: Michael Wise Referring MD: Medicines: See the Anesthesia note for documentation of the administered medications Complications: No immediate complications. Procedure: Informed consent was obtained for the procedure, including moderate sedation after risks were discussed. Based on the pre-procedure assessment, including review of the patient's medical history, medications, allergies, and review of systems, the patient was deemed to be an appropriate candidate for sedation. A timeout was performed. Continuous ECG monitoring, pulse oximetry, blood pressure monitoring, and direct observation were performed. The was introduced through the mouth, and advanced to the second part of duodenum. Estimated Blood Loss: Estimated blood loss: none. Findings: The esophagus was normal. The entire examined stomach was normal. The examined duodenum was normal. Impression: - Normal esophagus. - Normal stomach. - Normal examined duodenum. - No specimens collected. Recommendation: - Perform a colonoscopy today. Michael Wise, 11/30/2024 10:28:28 AM Number of Addenda: [phone] [facility] [place] [address] Michael Wise MD GI PROCEDURE ORDERABLES Final Re sult * (ABNORMAL) ANAEROBIC/AEROBIC CULTURE W GRAM STAIN (11/28/2024 11:29 AM CDT) CULTURE Scant growth Fusobacterium nucleatum(A) MOLLY MCG/ML 12/03/2024 1:48 PM CDT [facility] Comment:Anaerobe therapy rec ommendation: metronidazole. Alternatively: ampicillin/sulbactam or clindamycin. GRAM STAIN No organisms observed 12/03/2024 1:48 PM CDT [facility] GRAM STAIN 4+ (Heavy) Polymorphonuclear WBC 12/03/2024 1:48 PM CDT [facility] Aspirate ENTIRE LIVER / Unknown Collection / Unknown 11/28/2024 11:29 AM CDT 11/28/2024 1:16 PM CDT Yaritza Warren MD MICROBIOLOGY - GENERAL ORDERABLES Final Result [facility] CLIA# [id number] [address] [facility] [place] [address] * CYTOLOGY, NON GYNE (11/28/2024 11:29 AM CDT) CASE REPORT Medical Cytology Report Case: [id number] Authorizing Provider: Yaritza Warren Collected: 11/28/2024 11:29 AM MD Dinesh Ordering Location: [facility] Received: 12/02/2024 12:51 PM Medical Progressive Care Unit Pathologist: Jessie Guillen MD Specimen: Liver 7:54 AM T [facility] FINAL DIAGNOSIS Liver, aspiration: - Dense acute inflammation. - No atypical cells identified. 7:54 AM T [facility] at 0754 CDT GROSS DESCRIPTION Received is a container labeled Rani Mederos and liver. It contains 6 mL of opaque brown-red fluid. One ThinPrep and a cell block made. 7:54 AM T [facility] MICROSCOPIC DESCRIPTION The slides are labeled [id number] and Rani Mederos. The ThinPrep slide shows dense acute inflammation. No atypical cells are identified. The cellblock shows identical findings. 7:54 AM CDT [facility] CLINICAL INFORMATION No Dx found. 7:54 AM T [facility] COMMENT Special stain, immunohistochemical, and/or in situ hybridization results are interpreted with controls that demonstrate appropriate staining reactions. Note on use of immunohistochemistry reagents and in situ hybridization probes: These tests were developed and their performance characteristics determined by [facility] Department of Laboratory Medicine. It has not been cleared or approved by the U.S. Food and Drug Administration. The FDA has determined that such clearance or approval is not necessary. The test is used for clinical purposes. It should not be regarded as investigational or for research. This laboratory is certified to perform high complexity testing. Cases may have been signed out in part or completely in the following laboratories: [facility], CLIA #[id number] [address] [place] [address] [facility], [place] #[id number] [address] [place] [address]. 7:54 AM CDT [facility] Body fluid ENTIRE LIVER / Unknown Collection / Unknown 11/28/2024 11:29 AM CDT 12/02/2024 12:51 PM CDT Yaritza Warren MD PATHOLOGY/CYTO LOGY ORDERABLES Final Result [id number] [address] [place] [address] [place] [address] * CT ABSCESS DRAIN PERCUTANEOUS (11/28/2024 11:28 AM CDT) Anatomical Region Laterality Modality Computed Tomogra phy 11/28/2024 11:2 4 AM CDT Impressions 11/28/2024 4:19 PM CDT IMPRESSION: Successful percutaneous image-guided visceral fluid collection drainage by catheter. DICTATION LOCATION: Location 1 - [facility] Narrative 11/28/2024 4:19 PM CDT EXAMINATION: PERCUTANEOUS IMAGE-GUIDED VISCERAL FLUID COLLECTION DRAINAGE BY CATHETER USING CT GUIDANCE DATE: 11/28/2024 11:28 AM HISTORY: 69 years-old Female with liver abscess. ANESTHESIA: The procedure was performed with local anesthesia. PHYSICIAN(S): Dr. Berry Lucio MD TECHNIQUE: The risks, benefits and alternatives were discussed and informed consent was obtained. Prior to beginning the procedure, [place] Protocol was performed to confirm the patient's identity and the planned procedure. Sterile barriers including hand hygiene, sterile gloves, and sterile drape were used. 2% chlorhexidine was used for cutaneous antisepsis. The patient was placed in the supine position. An appropriate site was selected and marked on the skin. The skin was infiltrated with 1% lidocaine. Under intermittent CT guidance, a 19-gauge needle was advanced into the abscess from an anterior approach. A guidewire was advanced and coiled within the collection before dilating the tract. A 14-Turkmen catheter was then advanced over the guidewire and secured in place with a stitch. A sterile dressing was applied. A sample of the fluid was sent for culture. ESTIMATED BLOOD LOSS: 10 cc. CONDITION: Stable. DISCHARGED TO: Inpatient care division. FINDINGS: Initial images show left liver abscess. Final images show catheter within the targeted collection. Purulent fluid was drained. The patient tolerated the procedure without immediate complications. Procedure Note Berry Lucio MD - 11/28/2024 EXAMINATION: PERCUTANEOUS IMAGE-GUIDED VISCERAL FLUID COLLECTION DRAINAGE BY CATHETER USING CT GUIDANCE DATE: 11/28/2024 11:28 AM HISTORY: 69 years-old Female with liver abscess. ANESTHESIA: The procedure was performed with local anesthesia. PHYSICIAN(S): Dr. Berry Lucio MD TECHNIQUE: The risks, benefits and alternatives were discussed and informed consent was obtained. Prior to beginning the procedure, [place] Protocol was performed to confirm the patient's identity and the planned procedure. Sterile barriers including hand hygiene, sterile gloves, and sterile drape were used. 2% chlorhexidine was used for cutaneous antisepsis. The patient was placed in the supine position. An appropriate site was selected and marked on the skin. The skin was infiltrated with 1% lidocaine. Under intermittent CT guidance, a 19-gauge needle was advanced into the abscess from an anterior approach. A guidewire was advanced and coiled within the collection before dilating the tract. A 14-Turkmen catheter was then advanced over the guidewire and secured in place with a stitch. A sterile dressing was applied. A sample of the fluid was sent for culture. ESTIMATED BLOOD LOSS: 10 cc. CONDITION: Stable. DISCHARGED TO: Inpatient care division. FINDINGS: Initial images show left liver abscess. Final images show catheter within the targeted collection. Purulent fluid was drained. The patient tolerated the procedure without immediate complications. IMPRESSION: Successful percutaneous image-guided visceral fluid collection drainage by catheter. DICTATION LOCATION: Location 1 - [facility] Berry Lucio MD CT ORDERABLES Final Result * (ABNORMAL) URINALYSIS WITH REFLEX MICROSCOPIC (11/27/2024 3:50 AM CDT) COLOR UA Yellow Pale to Dark Yellow 11/27/2024 4:34 AM T [facility] - . [facility] CLARITY UA Clear Clear 11/27/2024 4:34 AM T [facility] - . [facility] SPECIFIC GRAVITY UA 1.015 1.003 - 1.035 11/27/2024 4:34 AM [facility] [employer] [facility] - . [facility] PH UA 5.5 5.0 - 8.0 11/27/2024 4:34 AM [facility] - . [facility] LEUKOCYTE ESTERASE UA Negative Negative 11/27/2024 4:34 AM [facility] - . [facility] NITRITE UA Negative Negative 11/27/2024 4:34 AM [facility] - . [facility] PROTEIN UA 1+(A) Negative 11/27/2024 4:34 AM [facility] - . [facility] GLUCOSE UA 3+(A) Negative 11/27/2024 4:34 AM [facility] - . [facility] KETONES UA 1+(A) Negative 11/27/2024 4:34 AM [facility] - . [facility] UROBILINOGEN UA 0.2 <2.0 mg/dL 4:34 AM T [facility] - . [facility] BILIRUBIN UA Negative Negative 11/27/2024 4:34 AM T [facility] - . [facility] BLOOD UA Negative Negative 11/27/2024 4:34 AM [facility] [employer] [facility] - . [facility] Comment:Ascorbic acid may ca use false negative results for blood. A microscopic review was reflexed to rule out this interference. WBC UA 3-5(A) 0 - 2 /hpf 11/27/2024 4:34 AM CDT [facility] RBC UA 3-5(A) 0 - 2 /hpf 11/27/2024 4:34 AM CDT [facility] BACTERIA UA Negative Negative /hpf 11/27/2024 4:34 AM CDT [facility] EPITHELIAL CELLS, URINE 0-5 0 - 5 /hpf 11/27/2024 4:34 AM CDT [facility] Ascorbic Acid UA Positive(A) Negative 4:34 AM CDT [facility] Urine URINE SPECIMEN OBTAINED BY CLEAN CATCH PROCEDURE / Unknown Collection / Unknown 11/27/2024 3:50 AM CDT 11/27/2024 4:00 AM CDT Yaritza Warren MD URINE ORDERABL ES Final Result [facility]# [id number] [address] [place] [id number] * (ABNORMAL) PROTIME-INR (11/27/2024 3:26 AM CDT) PROTIME 16.9(H) 12.7 - 15.1 Seconds 11/27/2024 4:31 AM CDT [facility] INR 1.4(H) 0.9 - 1.1 11/27/2024 4:31 AM CDT [facility] Blood Venipuncture / Unknown 11/27/2024 3:26 AM CDT 11/27/2024 4:08 AM CDT Narrative [facility] - 11/27/2024 4:31 AM CDT INR Therapeutic Range: Adult: 2.0 - 3.0 for pulmonary embolism or prophylaxis against venous thrombosis or systemic embolization. 2.0 - 3.0 for patients with tissue heart valves. 2.5 - 3.5 for patients with mechanical heart valves or post [place]. Pediatric (12 years and under): 1.5 - 3.0 Although the target range in children is not well established, INR values of 1.5 - 3.0 are recommended for most patients. Higher values have been used in children with prosthetic cardiac valves and hereditary clotting disorders. [place] (<3 days) therapeutic ranges have not been established. Yaritza Warren MD HEMATOLOGY ORD ERABLES Final Result Performing Organization Address [facility]/ZIP Co de Phone Number [facility] [employer] [facility]# [id number] [address] [place] [address] * (ABNORMAL) HEMOGLOBIN A1C (11/27/2024 3:26 AM CDT) HEMOGLOBIN A1C 7.9(H) <5.7 % 11/27/2024 8:29 AM CDT [facility] EST. AVG GLUCOSE, A1C 180 mg/dL 11/27/2024 8:29 AM CDT [facility] [employer] [facility] Blood Venipuncture / Unknown 11/27/2024 3:26 AM CDT 11/27/2024 4:08 AM CDT Narrative [facility] [employer] [facility] - 11/27/2024 8:29 AM CDT HGB A1C INTERPRETATION NORMAL: <5.7% PRE-DIABETES: 5.7 - 6.4% DIABETES: 6.5% OR GREATER Yaritza Warren MD CHEMISTRY ORDE RABLES Final Result Performing Organization Address City/[facility]/ZIP Co de Phone Number [facility] [employer] [facility]# [id number] [address] [place] [address] * (ABNORMAL) COMPREHENSIVE METABOLIC PANEL (11/27/2024 3:26 AM CDT) SODIUM 131(L) 136 - 145 mmol/L 11/27/2024 4:50 AM CDT [facility] POTASSIUM 4.2 3.5 - 5.0 mmol/L 11/27/2024 4:50 AM CDT [employer] [facility] CHLORIDE 95(L) 98 - 107 mmol/L 11/27/2024 4:50 AM [facility] [employer] [facility] CO2 24 22 - 29 mmol/L 11/27/2024 4:50 AM [facility] [employer] [facility] CALCIUM 9.1 8.6 - 10.2 mg/dL 11/27/2024 4:50 AM [facility] [employer] [facility] BUN 28(H) 8 - 23 mg/dL 11/27/2024 4:50 AM [facility] CREATININE 1.17(H) 0.51 - 0.95 mg/dL 11/27/2024 4:50 AM [facility] [employer] [facility] Comment:The GFR result is no t clinically significant on patients <18 or >70 years of age. GLUCOSE 157(H) 74 - 99 mg/dL 11/27/2024 4:50 AM [facility] [employer] [facility] TOTAL PROTEIN 7.0 6.7 - 8.6 g/dL 11/27/2024 4:50 AM [facility] ALBUMIN 3.2(L) 3.5 - 5.2 g/dL 11/27/2024 4:50 AM [facility] [employer] [facility] BILIRUBIN TOTAL 1.0 0.0 - 1.1 mg/dL 11/27/2024 4:50 AM [facility] [employer] [facility] ALKALINE PHOSPHATASE 167(H) 35 - 104 U/L 11/27/2024 4:50 AM [facility] [employer] [facility] AST 147(H) <33 U/L 11/27/2024 4:50 AM [facility] [employer] [facility] ALT 82(H) <34 U/L 11/27/2024 4:50 AM [facility] [employer] [facility] GFR 50 mL/min/1.7 3 sq meter 11/27/2024 4:50 AM [facility] [employer] [facility] Comment:eGFR calculated with 2020 CKD-EPI equation. Vegetarian diet, extremely high or low muscle mass, and may affect results. Cystatin C with Glomerular Filtration Rate is a suitable alternative for these patients. ANION GAP 12 8 - 16 mmol/L 11/27/2024 4:50 AM CDT [facility] Blood Venipuncture / Unknown 11/27/2024 3:26 AM CDT 11/27/2024 4:08 AM CDT Narrative [facility] - 11/27/2024 4:50 AM CDT Samples containing indocyanine green cause interferences on Total and/or Direct Bilirubin and must not be measured. Yaritza Warren MD CHEMISTRY MAURO HANNA Final Result [facility] CLIA# [id number] [address] [place] [id number] from Last 3 Months Insurance [facility] DUAL COMPLETE O [facility] [id number] [facility] Address: [address] [place] [id number] [facility] [id number] [place] [phone] Advance Directives For more information, please contact: [phone] * Full Code (Latest Code Status on File) Date Activated Date Inactivated Comments 11/27/2024 2:43 AM 12/08/2024 6:24 PM
--- OUTSIDE RECORDS SUMMARY | 2025-01-06 09:10 | XMS_ITS | Data Portability ---
Author Organization [facility], [employer] Address [address] [facility] [address] [place] [address] Care Team Providers Care Him Specialist Name Role Phone JUSTINA LAWSON Primary Care Provider [phone] Assessment Encounter Date Assessment Date Assessment LastModified by Organization Details LastModified Time 11/04/2019 11/04/2019 Patient presente d for follow up. Studies ordered as below. Discussed plan with patient/caregiver , who expressed understanding. Follow up as noted below. Patient presented for follow up. Studies ordered as below. Discussed plan with patient/caregiver , who expressed understanding. Follow up as noted below. Not available 11/04/2019 11:29:49 05/01/2020 05/01/2020 Patient presente d for follow up. Studies ordered as below. Discussed plan with patient/caregiver , who expressed understanding. Follow up as noted below. Patient presented for follow up. Studies ordered as below. Discussed plan with patient/caregiver , who expressed understanding. Follow up as noted below. Not available 05/01/2020 15:34:47 08/01/2020 08/01/2020 Patient presente d for follow up. Studies ordered as below. Discussed plan with patient/caregiver , who expressed understanding. Follow up as noted below. Patient presented to office today for their Medicare Annual Wellness Visit. Education was provided on healthy nutrition, including a diet rich in fruits and vegetables, minimizing simple carbohydrates, salt, and saturated fats. Encouraged regular cardiovascular exercise such as walking at least 30 minutes daily, 5 times per week. Emphasized preventive health measures and educated pt on fall prevention and community-based lifestyle interventions to help reduce health risks and promote healthy living. Not available 08/01/2020 15:37:09 12/19/2020 12/19/2020 Patient presente d for follow up. Studies ordered as below. Discussed plan with patient/caregiver , who expressed understanding. Follow up as noted below. [email or web address] Not available 12/19/2020 12:50:45 Plan of Treatment Reminders Order Date Submit Date Provider Last Modified By Organization Details Last Modified Time Details Appointments None recorded. Lab lipid panel w/ direct LDL, serum 2020 DWAYNE [facility] (Lab), [address], [address], [place], [address], 18:41:10 CMP, serum or plasma 2020 DWAYNE [employer] (Lab), [address], [address], [place], [address], 18:41:10 CBC w/ auto diff 2020 DWAYNE [employer] (Lab), [address], [address], [place], [address], 18:41:10 HbA1c (hemoglobi n A1c), blood 2020 DWAYNE [facility] (Lab), [address], [address], [place], [address], 18:41:10 erythrocyt e sedimentat ion rate by westergren method 2020 luis angel [facility] (Lab), [address], [address], [place], [address], 08:17:47 CK (creatine kinase), total, serum 2020 luis angel [facility] (Lab), [address], [address], [place], [address], 08:17:47 magnesium, serum or plasma 2020 DWAYNE Dan (Lab), [address], [address] [facility], [place], [address], 18:41:10 vitamin D, 25-hydroxy , total, serum 2020 luis angel [facility] (Lab), [address], [address] [facility], [place], [address], 08:17:47 hemoglobin A1c, QN, blood 2020 luis angel [facility] (Lab), [address] [facility], [address] [facility], [place], [address], 08:24:17 CMP, serum or plasma 2020 021 luis angel [facility] (Lab), [address], [address] [facility], [place], [address], 08:24:17 microalbum in/creatin ine, mass ratio, urine 2020 021 luis angel [facility] (Lab), [address], [address] [facility], [place], [address], 1 08:24:18 lipid panel w/ direct LDL, serum 2020 021 luis angel [facility] (Lab), [address], [address] [facility] [place], [address], 1 08:24:18 vitamin B12, serum 2020 021 luis angel [employer] (Lab), [address], [address], [place], [address], 08:24:18 CBC 2020 021 luis angel [employer] (Lab), [address], [address], [place], [address], 08:24:18 lipid panel w/ direct LDL, serum 2020 021 ole [employer] (Lab), [address], [address], [place], [address], 14:53:08 TSH, serum or plasma 2020 021 luis angel [employer] (Lab), [address], [address], [place], [address], 09:51:25 vitamin B12, serum 2020 021 ole [employer] (Lab), [address], [address], [place], [address], 14:53:08 CMP, serum or plasma 2020 021 [facility] [facility]), [address], [address], [place], [address], 14:53:07 CBC 2020 021 ole [employer] (Lab), [address], [address], [place], [address], 03/28/202 1 14:53:08 hemoglobin A1c, QN, blood 2020 021 luis angel [facility] (Lab), [address], [address], [facility] [place], [address], 1 09:51:24 microalbum in, urine 2020 021 luis angel [facility] (Lab), [address], [address], [facility] [place], [address], 1 09:51:25 magnesium, serum or plasma 2020 021 luis angel [facility] (Lab), [address], [address], [facility] [place], [address], 1 09:51:25 retic count, blood 2019 020 [facility] (Lab), [address], [address], [facility] [place], [address], 0 10:08:24 vitamin B12 + folate, serum or blood 2019 020 [facility] (Lab), [address], [address], [facility] [place], [address], 0 10:08:24 fecal occult blood, stool 2019 020 [facility] (Lab), [address], [address], [facility] [place], [address], 0 10:08:24 CBC 2019 020 [facility] (Lab), [address], [address], [facility] [place], [address], 0 10:08:24 vitamin D, 25-hydroxy , total, serum 2019 020 [facility] (Lab), [address] [facility], [address] [facility], [place], [address], 0 20:08:17 magnesium, serum or plasma 2019 020 [email or web address] (Lab), [address] [facility], [address] [facility], [place], [address], 0 10:08:23 iron panel, serum or plasma 2019 020 [facility] (Lab), [address] [facility], [address] [facility], [place], [address], 0 19:42:32 CK (creatine kinase), total, serum 2019 020 [facility] (Lab), [address] [facility], [address] [facility], [place], [address], 0 10:08:24 D-dimer, quant, plasma 2019 020 [email or web address] (Lab), [address] [facility], [address] [facility], [place], [address], 0 10:08:24 Referral general surgeon referral 2020 021 luis angel Alexandra MD, [address], [address], 1 16:54:53 physical therapist referral 2020 021 [facility], [address], [place], [address], 1 03:07:56 diabetic ophthalmol ogy referral 2020 021 luis angel Fischer MD, [address] [facility] , [address], [place], [address], 1 10:10:16 orthopedic referral 2020 021 [facility] Jitendra Yee MD, [address], [address], [place], [address], 1 16:58:[address] referral 2020 021 luis angel Brito, [address] [facility], [address], [place], [address], 1 08:54:59 orthopedic referral 2019 020 Jitendra Bell MD, [address] [facility] , [address], [place], [address], 0 09:45:20 gastroente rologist referral 2019 020 DWAYNE Weiss MD, [address], [address], [place], [address], 0 12:42:08 Procedures None recorded. Surgeries None recorded. Imaging XR, lumbosacra l spine, 2 or 3 view 2020 021 [facility], [address], [address], [place], [address], 1 08:42:16 XR, kidney + ureter + bladder 2020 021 [facility], [address], [address], [place], [address], 1 08:28:08 MRI, knee, w/o contrast 2020 021 [facility], [address], [address], [place], [address], 08:24:24 MAMMO, screening, bilateral 2020 [facility], [address], [address], [place], [address], 08:38:31 electrocar diogram 2020 [facility], [facility], [address] [facility] , [address], [place], [address], 13:41:53 Medication Orders ezetimibe 10 mg tablet 2020 [facility], [address] [place] [address], [address], 13:31:34 Lantus Solostar U-100 Insulin 100 unit/mL (3 mL) subcutaneo us pen 2020 [facility], [address] [place] [address], [address], 13:31:36 Bydureon BCise 2 mg/0.85 mL subcutaneo us auto-injec tor 2020 [facility], [address] [place] [address], [address], 13:31:33 rosuvastat in 20 mg tablet 2020 [facility], [address] [place] [address], [address], 13:33:25 Lantus Solostar U-100 Insulin 100 unit/mL (3 mL) subcutaneo us pen 2020 [facility], [address] [place] [address], 98[address], 17:26:37 Novolog FlexPen U-100 Insulin aspart 100 unit/mL (3 mL) subcutaneo us 2020 021 [facility], [address] [place] [address], [address], 17:41:28 duloxetine 30 mg capsule,de layed release 2020 [facility], [address] [place] [address], [address], 13:33:04 tramadol 50 mg tablet [email or web address] [facility], [address] [place] [address], [address], 16:29:28 Lantus Solostar U-100 Insulin 100 unit/mL (3 mL) subcutaneo us pen 2020 021 [facility], [address] [place] [address], [address], 03:35:53 Novolog FlexPen U-100 Insulin aspart 100 unit/mL (3 mL) subcutaneo us 2020 021 [facility], [address] [place] [address], [address], 16:27:52 Jardiance 10 mg tablet 2020 021 [facility], [address] [place] [address], [address], 19:58:37 Linzess 72 mcg capsule 2020 021 [facility], [address] [place] [address], [address], 16:16:31 fenofibrat e 160 mg tablet 2020 [facility], [address] [place] [address], [address], 16:11:33 rosuvastat in 20 mg tablet 2020 mshenouda [facility], [address] [place] [address], [address], 13:33:25 tramadol 50 mg tablet 2020 021 [email or web address] [facility], [address] [place] [address], [address], 16:47:22 Neurontin 300 mg capsule 2020 [facility], [address] [place] [address], 132[address], 16:11:35 aspirin 325 mg tablet,del ayed release 2020 [facility], [address] [place] [address], [address], 16:11:38 telmisarta n 80 mg-hydroch lorothiazi de 25 mg tablet 2020 [facility], [address] [place] [address], [address], 16:16:25 Novolog FlexPen U-100 Insulin aspart 100 unit/mL (3 mL) subcutaneo us 2020 021 [facility], [address] [place] [address], 35[address], 16:16:23 Lantus Solostar U-100 Insulin 100 unit/mL (3 mL) subcutaneo us pen 2020 [facility], [address] [place] [address], [address], 1 16:11:34 Jardiance 10 mg tablet 2020 [facility], [address] [place] [address], [address], 1 19:58:37 FreeStyle Lite Strips 2020 [facility], [address] [place] [address], [address], 1 16:16:25 magnesium 200 mg tablet 2020 [facility], [address] [place] [address], [address], 1 13:33:16 potassium chloride ER 20 mEq tablet,ext ended release(pa rt/cryst) 2020 [facility], [address] [place] [address], [address], 1 13:33:19 neomycin-p olymyxin-h ydrocort 3.5 mg-10,000 unit/mL-1 % ear drops,susp 2019 [facility], [address] [place] [address], [address], 0 13:57:17 Neurontin 300 mg capsule 2019 [facility], [address] [place] [address], [address], 0 11:58:58 Farxiga 5 mg tablet 2019 [facility] [employer] [facility], [facility], [place], [address], 1 15:53:13 magnesium 200 mg tablet 2019 020 mshenouda [facility], [address] [place] [address], [address], 13:33:12 Patient TargetsNo targets recorded. Patient Instructions Encounter Date Encounter Id Patient Instructions Last Modified By Organization Details Last Modified Time 11/04/2019 [id number] mammogram: about this test mshenouda Not available 11/04/2019 11:58:55 anemia: care instructions mshenouda Not available 11/04/2019 11:58:55 05/01/2020 [id number] mammogram: about this test mshenouda Not available 05/01/2020 16:10:58 hypokalemia: car e instructions mshenouda Not available 05/01/2020 16:10:58 08/01/2020 [id number] mammogram: about this test mshenouda Not available 08/01/2020 16:22:48 supraventricular tachycardia: care instructions mshenouda Not available 08/01/2020 16:22:47 kidney stone: ca re instructions mshenouda Not available 08/01/2020 16:22:47 learning about d iet for kidney stone prevention mshenouda Not available 08/01/2020 16:22:48 medicare prevent cathy services guide mshenouda Not available 08/01/2020 16:22:48 advance care planning: care instructions mshenouda Not available 08/01/2020 16:22:49 anemia: care instructions mshenouda Not available 08/01/2020 16:22:48 albumin-creatini ne ratio: about this test mshenouda Not available 08/01/2020 16:22:49 diabetic retinopathy: care instructions mshenouda Not available 08/01/2020 16:22:48 type 2 diabetes: care instructions mshenouda Not available 08/01/2020 16:22:48 Discussed and explained advance directives such as standard forms to the patient. Face to face discussion lasted for a duration of _3__ minutes. mshenouda Not available 08/01/2020 16:21:02 11/28/2020 [id number] goiter: care instructions mshenouda Not available 11/28/2020 17:26:23 mammogram: about this test mshenouda Not available 11/28/2020 17:26:23 (HUE) ankle brac hial index* DWAYNE Not available 11/30/2020 14:49:39 leg pain: care instructions mshenouda Not available 11/28/2020 17:26:23 12/19/2020 [id number] thyroid nodules: care instructions mshenouda Not available 12/19/2020 13:31:30 hypercalcemia: c are instructions mshenouda Not available 12/19/2020 13:31:30 back care and preventing injuries: care instructions mshenouda Not available 12/19/2020 13:31:31 getting back to normal after low back pain: care instructions mshenouda Not available 12/19/2020 13:31:31 learning about relief for back pain mshenouda Not available 12/19/2020 13:31:31 Reason for Referral Orthopedic Referral for Pain in right knee Referring Physician: Justina Lawson [facility], Encounter Date: 11/04/2019 Wheel Braider Referral for Screening for malignant neoplasm of colon Referring Physician: Justina Lawson [facility], Encounter Date: 11/04/2019 Molybdenum Steamer Operator Referral for Sc reening for malignant neoplasm of cervix Referring Physician: Justina Lawson [facility], Encounter Date: 05/01/2020 Diabetic Ophthalmology Refer ral for Insulin treated type 2 diabetes mellitus Referring Physician: Justina Lawson [facility], Encounter Date: 08/01/2020 Orthopedic Referral for Oste oarthritis of right knee joint Referring Physician: Justina Lawson [facility], Encounter Date: 08/01/2020 Physical Therapist Referral for Low back pain Referring Physician: Justina [facility], Encounter Date: 12/19/2020 General Surgeon Referral for Thyroid nodule Referring Physician: Justina [facility], Encounter Date: 12/19/2020 Results Created Date Observation Date Name Description Value Unit Range Abnormal Flag Note LastModifiedBy Organization Detail LastModifiedTime 05/03/19 21 05/02/2020 tavon lou am Rate & Rhythm Not Available [address]rawal, [place], [address], 05/01/2020 15:58:48 05/03/19 21 05/02/2020 elect rocar diogr am QRS Not Available [address]rawal, [place], [address], 05/01/2020 15:58:48 05/03/19 21 05/02/2020 elect rocar diogr am NV Interval Not Available [address]rawal, [place], [address], 05/01/2020 15:58:48 05/03/19 21 05/02/2020 elect rocar diogr am QRS Duration Not Available [address]rawal, [place], [address], 05/01/2020 15:58:48 05/03/19 21 05/02/2020 elect rocar diogr am QT Interval Not Available [address]rawal, [place], [address], 05/01/2020 15:58:48 05/03/19 21 05/02/2020 elect rocar diogr am Change from Previous EKG? Not Available [address]rawal, [place], [address], 05/01/2020 15:58:48 05/03/19 21 05/02/2020 elect rocar diogr am Date of Last EKG Not Available [address]rawal, [place], [address], 05/01/2020 15:58:48 11/18/19 20 11/18/2019 US, knee No observ ation record ed. [facility] [address], [place], [address], 05/01/2020 16:02:23 02/08/20 20 02/08/2020 US, knee No observ ation record ed. [facility] Not Available 2020 16:02:23 04/27/19 21 04/26/2020 US, knee No observ ation record ed. [facility] Not Available 2020 16:02:23 05/03/19 21 05/01/2020 elect rocar diogr am No observ ation record ed. [facility], [place] [address], [place], [address], 08/01/2020 16:08:12 05/03/19 21 05/01/2020 elect rocar diogr am No observ ation record ed. [facility], [place] [address], [place], [address], 08/01/2020 16:08:12 05/10/19 21 02/08/2020 US, knee No observ ation record ed. [facility] Not Available 2020 16:08:12 06/22/19 21 06/21/2020 US, knee No observ ation record ed. [facility] [address] [place] [address] [address], [place], [address], 08/01/2020 16:08:12 08/27/19 21 MRI knee RT wwo con [facility] [address] [place] [address] Orderi ng Provid er: RAFIQ GLASS N EXAMIN ATION: MRI KNEE RT WWO CON HISTOR Y: Pain, Poli moreno cyst status post total aspira tions DATE: 021 4:12 PM COMPAR NOHEMI: None TECHNI QUE: Multis equenc e multip lanar imagin g of the right knee prior to and follow ing the uneven tful intrav enous admini strati on of 16 cc dotare m FINDIN GS: Skin marker placed at the site of concer n in the medial aspect of the poplit eal fossa. There is a large poplit eal cyst in this area accoun ting for the palpab le abnorm ality. This measur es about 4.7 x 2.5 cm transv erse dimens ion and 7.6 cm cranio caudal dimens ion. Multip le incomp lete internal combustion engine inspector al septat ions. There is a trace amount of surrou nding edema about the inferi or aspect of the cyst sugges ting a small amount of leakag e. There is a modera te-siz ed joint effusi on. No fractu re or disloc ation. There is advanc ed patell ar chondr omalac ia with large area of full-t hickne ss cartil age loss involv ing the latera l facet and apex. Subcho ndral cystic change and edema in the patell a. There is also full-t hickne ss cartil age loss over much of the latera l compar tment. There is a small full-t hickne ss cartil age defect in the medial femora l condyl e, and mild to modera te thinni ng/irr egular ity genera lly throug hout the medial compar tment. Few tiny subcor tical cysts in the centra l aspect of the proxim al tibia undern eath the ACL insert ion, possib ly early intrao sseous gangli on format ion. Single tiny simila r-appe aring cyst at the PCL insert ion on the tibia. Mild thicke zachary of the ACL with interm ediate T2 signal sugges ting early mucoid degene ration . No eviden ce of ACL tear identi fied. PCL is intact . Collat eral ligame nts are intact . Comple x tear of the latera l menisc us anteri or horn extend ing to the body. There is latera l extrus ion of the latera l menisc al body. Medial menisc us is intact . There is diffus e synovi al enhanc ement in the knee joints , appear ing slight ly greate r than averag e sugges ting some degree of irrita tion or synovi tis. Thin rim enhanc ement involv ing the poplit eal cyst. No abnorm al enhanc ement of the bones. IMPRES LALIT: 1. Large poplit eal cyst, with minima l leakag e. 2. Modera te-siz ed joint effusi on with possib le synovi tis. 3. Tricom partme ntal osteoa rthrit is with large areas of full-t hickne ss cartil age loss in the patell a and latera l compar tment. 4. Latera l menisc us tear. 5. Suspec t early mucoid degene ration of the ACL, with minima l cystic change in the tibia at the ACL insert ion. Referr ed By: RAFIQ Medellin onical ly Signed By: Mahin Dia MD on 6:08 PM Interp reted By: Mahin Dia MD, 6:01 PM [facility] [address] [facility], [place], [address], 11/28/2020 17:10:01 08/27/19 21 08/26/2020 MRI, knee, w/o contr ast No observ ation record ed. [facility] [place] [address] [facility], [place], [address], 11/28/2020 17:10:01 11/26/[address] [facility] [place] [address] Orderi Provid er: TANMAY MONTANO EXAMIN ATION: CTA CHEST WITH CONTRA ST ACCESS ION: [id number] EXAM DATE/T MARCELO: 2020 10:07 AM REASON FOR EXAM: PE suspec belkys, low/in termed iate prob, positi ve D-dime r Pain in both legs. Interm ediate probab ility for pulmon kenn emboli sm. Positi ve d-dime r. COMPAR NOHEMI: None TECHNI QUE: Axial CT images of the chest are obtain ed follow ing uneven tful intrav enous admini strati on of 80 cc Isovue -370. Subseq uent mcpherson l and sagitt al reform atted sequen jumana are greate r for evalua tion. In additi on 3-D rotati onal MIP imagin g of the thorac ic arteri al vascul ature is create d on a Moblication workst ation for review . A dose loweri ng techni que was used for this proced ure, which may includ e, but is not limite d to, dose reduct ion techni que, automa belkys exposu re contro l, iterat cathy recons tructi on, ALARA (As Low As Reason ably Achiev able), or Image Gently techni ques. FINDIN GS: Pulmon kenn arteri es are well-o pacifi ed. No eviden ce of pulmon kenn emboli sm. Heart size normal . No perica rdial effusi on. Normal left aortic arch. Aberra nt right subcla vian artery . Thorac ic aorta normal in calibe r throug hout. Postsu rgical change s left breast . No axilla ry or medias tinal lympha denopa thy. Asymme tric enlarg ement of the left thyroi d lobe with mass effect on the trache a. No pleura l effusi on. No pneumo thorax . No abnorm al pulmon kenn nodule s or masses . Minima l atelec tasis in the depend ent lung bases. The lungs are free of airspa ce diseas e. Centra l airway s are patent . Limite d evalua tion of upper abdomi nal viscer a unrema rkable . Bone level imagin g shows no acute osseou s abnorm alitie s. ===== IMPRES LALIT: ===== 1. No pulmon kenn emboli sm. Normal calibe r aorta. 2. Abnorm al enlarg ed with a left thyroi d lobe with mass effect on the trache a. Furthe r evalua tion with outpat ient thyroi d ultras ound recomm ended if not previo usly obtain ed elsewh ere. 3. Incide ntal aberra nt course of right subcla vian artery . Referr ed By: Electr onical ly Signed By: Maninder franz MD on 2020 10:50 AM Interp reted By: Maninder franz MD, 2020 10:45 AM GFR=47 1020 Pt going to [facility] , come back 1 [facility] [address] [facility], [place], [address], 11/28/2020 17:10:01 11/26/19 21 ECG 12-le ad [facility] [address] [facility] [address] [place] [address] Orderi ng Provid er: TANMAY MONTANO [facility] [place] [address] [place], [place] Test Date: 2020-02 0 Pat Name: SHARI DILLARD ER Depart ment: Rachelle conrad ID: [id number] Room: [place] [address] Gender : Female Techni xavi: EG : 1955-02 009 Reques belkys By: TANMAY MONTANO Order Number : [id number] Rupa muniz MD: Apolinar Rueda Measur ements Interv als [place] Rate: 67 P: 54 NV: 163 QRS: 45 QRSD: 85 T: 52 QT: 385 QTc: 409 Interp retive Statem ents SINUS RHYTHM NONSPE CIFIC T-WAVE ABNORM ALITY Compar ed to ECG 2019 11:29: 53 Sinus tachyc ardia no longer presen t T-wave abnorm ality still presen t No ischem ic change s Prelim inary EKG interp retati on by ED Physic laura Montano MD Electr onical ly signed by Apolinar Rueda at 2020 14:11: 34 CDT [facility] [address] [facility], [place], [address], 11/28/2020 17:10:01 11/26/19 21 ECG 12-le ad [facility] [address] [place] [address] Orderi ng Provid er: TANMAY MONTANO [facility] [place] [address] [place], [place] Test Date: 2020-02 0-10 Pat Name: SHARI Katey NISHANT ER Depart ment: Rachelle t ID: [id number] Room: [facility] Gender : Female Techni xavi: EG : 1955-02 0 Reques belkys By: TANMAY MONTANO Order Number : [id number] Rupa muniz MD: Apolinar Rueda Measur ements Interv als [place] Rate: 67 P: 54 NV: 163 QRS: 45 QRSD: 85 T: 52 QT: 385 QTc: 409 Interp retive Statem ents SINUS RHYTHM NONSPE CIFIC T-WAVE ABNORM ALITY Compar ed to ECG 2019 11:29: 53 Sinus tachyc ardia no longer presen t T-wave abnorm ality still presen t No ischem ic change s Prelim inary EKG interp retati on by ED Physic laura Montano MD Electr onical ly signed by Apolinar Rueda at 2020 14:11: 34 CDT [facility] [address] [facility], [place], [address], 11/28/2020 17:10:01 11/27/19 21 11/26/2020 US, adin x, lizzy s, lower extre mity No observ ation record ed. [facility] [place] [address] [facility], [place], [address], 11/28/2020 17:10:01 11/29/19 21 usvve dultb [facility] ONE [facility] [address] Orderi ng Provid er: TANMAY MONTANO VENOUS DUPLEX IMAGIN G BILATE RAL LOWER EXTREM ITY VASCUL AR LAB Pat.Na me: NISHANT ERSHARI Pat.ID : [id number]Ankush e: 2020 Refer. MD: Justina Barber Exam Time: 7:50:0 0 AM Study Type:S EB VS Venous Duplex Legs HANY Age: [birth year][age] Y Sex: FEMALE Sonogr phr: Benedicto Schroederangélica, RVS Pat. Stat.: Outpat ient Histor y / Clinic al:BLE pain/w aeknes s/cram ping feelin g- ongoin g condit ion but could not stand the pain and came to ER; d-dime r 1,188; Hx recurr ent RLE bakers cyst- bryant shad aspira belkys @ [facility] 5x, most recent ly 06/21/20 ; PMH- BMI 31, JUAN ALBERTO, HTN, DM, Ovaria n cyst, breast CA, no prior Race: B ++++++ ++++++ ++++++ ++++++ ++++++ ++++++ SUMMAR Y: ++++++ ++++++ ++++++ ++++++ ++++++ ++++++ Right leg: There are NO appare nt, deep or superf icial vein, ACUTE charac ter venous fillin g defect s visual ized in the femora l, poplit eal, deep calf or proxim al saphen ous veins. Restin g venous flow is normal phasic proxim ally. No valve reflux with compre ssion maneuv ers is detect ed in the femora l and poplit eal veins. There is a define d 10.7 x 1.66 cm right poplit eal fossa cystic , fluid collec tion or mass noted. Left leg: There are NO appare nt, deep or superf icial vein, ACUTE charac ter venous fillin g defect s visual ized in the femora l, poplit eal, deep calf or proxim al saphen ous veins. Restin g venous flow is normal phasic proxim ally. No valve reflux with compre ssion maneuv ers is detect ed in the femora l and poplit eal veins. CONCLU LALIT: Normal study bilate ral lower extrem ity, with no eviden ce of acute deep or superf icial vein thromb osis. There is no signif icant reflux detect ed. ++++++ ++++++ ++++++ ++++++ ++++++ ++++++ FINDIN GS: ++++++ ++++++ ++++++ ++++++ ++++++ ++++++ Signed 2020 05:10 PM Stanislaw Aparicio M.D. [facility] [address] [facility], [place], [address], 12/19/2020 13:18:36 12/14/19 21 12/12/2020 XR, lumbo sacra l spine , 2 or 3 view No observ ation record ed. [facility] ([facility]) [address], [place], [address], 12/19/2020 13:18:35 12/15/19 21 12/12/2020 US, thyro id No observ ation record ed. [facility] ([facility]) [address], [place], [address], 12/19/2020 13:18:35 01/30/20 21 12/06/2020 (HUE) ankle brach ial index * No observ ation record ed. [facility], [facility] [address], [place], [address], 01/29/2021 18:33:59 02/02/20 21 US gd thyro id fine ndl aspir [facility] [place] [address] Orderi ng Provid er: BRITANY Chamberlain [facility] Examin ation: Ultras ound guided thyroi d biopsy . Access ion: [id number] Exam date/t marcelo: 2020 11:08 AM Reason For Exam: 65-yea r-old female presen ting for right thyroi d nodule FNA x1 and left thyroi d lobe nodule FNA x2 Compar nohemi: Ultras ound thyroi d 2020 Techni que: Transc utaneo us ultras ound evalua tion of the thyroi d was perfor med for analys is of graysc aureliano imagin g charac terist ics and guidan ce for FNA. Findin gs: There is right thyroi d lobe 1.7 cm cystic nodule . There is a left thyroi d lobe 2.5 cm cystic nodule and a solid and cystic 1.6 cm nodule . These were target ed for sampli ng. The cystic nodule s appear to have been aspira belkys. FNA perfor med of the solid and cystic nodule . ====== ====== === IMPRES LALIT: ====== ====== ==== Ultras ound guidan ce provid ed for fine-n eedle aspira tion of a a right cystic and left thyroi d lobe cystic and solid and cystic nodule s perfor med by Dr.Aac scanlon No radiol ogist christopher Escobar d By: BRITANY SAXENA Electr onical ly Signed By: Herbie Rao MD on 2020 3:06 PM Interp reted By: Herbie Rao MD, 2020 3:[address], [address], 02/03/2021 13:45:05 Result Notes None recorded. Problems Name Problem SNOMED Code Status Onset Date Resolution Date Notes Provider Name and Address Organization Details Recorded Time Body mass index 30+ - obesity 817956763 Active 2018 [facility], [facility] 9 14:58:23 Benign hypertens ion 31967832 Active 2018 Justina Lawson MD [address], [place], [address] , [facility] 9 15:25:19 Type 2 diabetes mellitus without complicat ion 619357127 Active 2018 insuline requering Justina Lawson MD [address], [place], [address] , [facility] 9 21:07:48 Mixed hyperlipi demia 678729962 Active 2018 Justina Lawson MD [address], [place], [address] , [facility] 9 15:25:26 History of malignant neoplasm of breast 584606954 Active 2018 Justina Lawson MD [address], [place], [address] , [facility] 9 15:25:34 Diverticu losis of colon without diverticu litis 300485268 Active 2018 Justina Lawson MD [address], [place], [address] , [facility] 9 15:25:35 Osteoarth ritis 433570964 Active 2018 Justina Lawson MD [address], [place], [address] , [facility] 9 15:25:37 Kidney stone 55742641 Active 2018 Justina Lawson MD [address], [place], [address] , [facility] 9 15:25:42 Menopause Active 2018 Justina Lawson MD [address], [place], [address] , [facility] 9 15:26:12 Diabetic periphera l neuropath y 455092837 Active 2018 Justina Lawson MD [address], [place], [address] , [facility] 9 15:31:31 Obstructi ve sleep apnea of adult 63234412864 03 Active 2018 Justina Lawson MD [address], [place], [address] , [facility] 9 15:43:50 Insulin treated type 2 diabetes mellitus 546877092 Active 2018 Justina Lawson MD [address], [place], [address] , [facility] 9 21:11:15 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 246760444 Active 2018 MD Malgorzata Zelaya[address], [place], [address] , [facility] 9 11:07:27 Chronic constipat ion 281421848 Active 2018 MD Zulma Zelaya [address], [place], [address] , [facility] 9 16:38:37 Microalbu minuria 030111599 Active 2018 MD Malgorzata [address], [place], [address] , [facility] 9 16:40:22 Anemia 823021050 Active 2019 MD Malgorzata Zelaya[address], [place], [address] , [facility] 0 23:03:51 Supravent ricular tachycard ia 6242575 Active 2019 MD Zulma Zelaya [address], [place], [address] , [facility] 0 16:12:07 Hypercalc emia 96481821 Active 2020 MD Zulma Zelaya [address], [place], [address] , [facility] 1 19:56:34 Goiter 3406054 Active 2020 MD Zulma Zelaya [address], [place], [address] , [facility] 1 14:17:15 Thyroid nodule 080752348 Active 2020 Justina Lawson MD [address], [place], [address] , [facility] 13:28:32 Problem Notes Documentation Provider Name and Address Organization Details Recorded Time Orthopedic Consult Note : Patient Name: RANI RYAN Date of : 1955 Med Rec #: [id number] Date of Service: 08/08/2020 Disch Date: 08/08/2020 Office Visit Reason for Visit: New Patient (Rt knee pain) History of Present Illness: HPI Rani Ryan presents for posterior right knee pain. She is an extremely pleasant 64-year-old female. She says that she started noticing increased swelling 3 months ago in the back of her knee. She states that she has a problem in that area the back of her knee. She denies anterior knee pain. She has seen several orthopedic people at [facility] for this issue. She has had the cyst drained 4 times at [facility] over the past couple months and says that they have just aspirated clear fluid from it. She has had 2 separate injections into the cyst that were steroid injection and feels that this did not help her at all. She exercises and works out around 3 times a week including including light weights. She lives with her . She is diabetic has a history of left breast cancer. She has A. fib. Assessment: Popliteal fossa swelling, right knee Right knee OA Recommendations and Plan: New Patient (Rt knee pain) We talked about her images and diagnosis. Due to her nonresponsive treatment and history of breast cancer, we should obtain an MRI of her right knee. This should be down with and without contrast. Followup pending results of MRI. ROS: ROS PE: Physical Exam Constitutional: she appears well-developed and well-nourished. HENT: Head: Normocephalic and atraumatic Eyes: EOM are normal. Neck: Neck Supple Skin: Warm and dry Pulmonary/Chest: Effort normal. No respiratory distress. Neurological: she is alert and attentive. Speech is clear, coherent, and not pressured. Psychiatric: she has a normal mood and affect. Cardiovascular: 2+ pedal pulse in right foot Ortho: They walk without deficiency in gait. She is nontender to palpation along the medial lateral joint line of her bilateral knees. She has full range of motion without pain in her bilateral knees. She has a palpable large fluid like mass in the posterior popliteal fossa of her right knee. This is nonerythematous and really nonpainful to palpation. She has 5 out of 5 strength knee flexion/extension bilaterally. No pain or laxity with valgus or varus stress of her knees. Imaging: XR KNEE RT 3V Narrative: Examination: Right knee, 3 views Exam time: 08/08/2020 at 1537 hours Clinical history: Right knee pain. Rt Knee pain. Hx of injection. Pt is a diabetic. Comparison: None. Technique: Frontal, lateral, and sunrise views of the right knee were obtained. Findings: No acute fracture. No dislocation. No evidence of bone destruction or erosive arthropathy. Small joint effusion. Mild osteophytes. Vascular calcifications. Impression: IMPRESSION: 1. Mild degenerative arthritis. 2. Small joint effusion. Referred By: RAFIQ WEEMS Interpreted By: López Zayas MD, 08/09/2020 8:20 AM Medications: Outpatient Medications Marked as Taking for the 08/08/20 encounter (Office Visit) with RUBI Walker Medication Sig Dispense Refill * fenofibrate 160 MG tablet Take 160 mg by mouth daily. * gabapentin 100 MG capsule Take 100 mg by mouth 3 (three) times daily. * Insulin Glargine-Lixisenatide 100-33 UNT-MCG/ML Solution Pen-injector Soliqua 100/33 100 unit-33 mcg/mL subcutaneous insulin pen * LANTUS SOLOSTAR 100 UNIT/ML injection (PEN) * NOVOLOG FLEXPEN 100 UNIT/ML injection (PEN) * rosuvastatin 10 MG tablet Take 10 mg by mouth nightly. * Telmisartan-HCTZ 80-25 MG Tab Take 1 tablet by mouth daily. Allergies: No Known Allergies Medical History: Past Medical History: Diagnosis Date * Diabetes mellitus (CMS/HCC) * Hypertension * SVT (supraventricular tachycardia) (CMS/HCC) Surgical History: Past Surgical History: Procedure Laterality Date * CHOLECYSTECTOMY * MASTECTOMY Left Social History: Social History Tobacco Use * Smoking status: Never Smoker * Smokeless tobacco: Never Used Substance Use Topics * Alcohol use: Yes Comment: socially * Drug use: No Family History: No family history on file. VITALS: Vitals: 08/08/20 1551 Patient Position: Sitting BP Location: Right arm Cuff size: Adult Large BP: 111/58 Pulse: 82 Estimated BMI Today: Estimated body mass index is 30.64 kg/mA? as calculated from the following: Height as of this encounter: 5' 4 (1.626 m). Weight as of this encounter: 81 kg (178 lb 8 oz). Portions of this note were dictated using Illumagear speech recognition software. Occasional wrong word or sound-alike substitutions may have occurred due to the inherent limitations of voice recognition software. Please read the chart carefully and recognize, using context, where the substitutions may have occurred. Procedures RUBI CESPEDES 08/08/2020 Signed by: RAFIQ WEEMS 08/09/2020 9:28 PM Justina Lawson MD [address], [place], [address], [facility] 11/28/2020 17:10:05 Orthopedic Consult Note : Patient Name: RANI RYAN Date of : 1955 Med Rec #: [id number] Date of Service: 09/12/2020 Disch Date: 09/12/2020 Office Visit Reason for Visit: Follow Up (Rt knee pain) History of Present Illness: HPI Rani Ryan presents for posterior right knee pain. She is an extremely pleasant 64-year-old female. She says that she started noticing increased swelling 3 months ago in the back of her knee. She states that she has a problem in that area the back of her knee. She denies anterior knee pain. She has seen several orthopedic people at [facility] for this issue. She has had the cyst drained 4 times at [facility] over the past couple months and says that they have just aspirated clear fluid from it. She has had 2 separate injections into the cyst that were steroid injection and feels that this did not help her at all. She exercises and works out around 3 times a week including including light weights. She lives with her . She is diabetic has a history of left breast cancer. She has A. Fib. She comes in today to review her MRI and to talk about her next steps. Assessment: Popliteal fossa swelling, right knee Right knee OA Recommendations and Plan: Follow Up (Rt knee pain) Mri consistent with Large popliteal cyst, with minimal leakage. I think she would benefit from a drainage of her ashton's cyst with steroid injection in her knee. It is my hope that the steroid injection in her knee will curb fluid production. Followup as needed. The patient was positioned prone first. The area was cleansed with chloraprep along her popliteal fossa. The popliteal artery and vein was identified with ultrasound. I infiltrated the right knee soft tissues with 1 cc 2% lidocaine for analgesia. Next we drained 40 cc of clear straw colored fluid from the popliteal cyst. I infiltrated the right knee and soft tissues with 2 cc 2% lidocaine for analgesia. This was let sit for approximately 1 minute. Next we injected 3 cc 0.5% bupivacaine and 40 mg Kenalog. This was done with sterile technique. The patient tolerated it well. EDIN Marcus, assisted with procedure. They have been counseled to look out for signs and symptoms of infection such as as significant pain, swelling, redness, fever over 100, and difficulty moving the affected area. They know to call if they develop these problems. She knows that these steroid injections can raise her blood sugars. Her most recent A1c she states was 8. OUS GUIDE NEEDLE PLCMT ORTHO Result Date: 09/12/2020 This report does not contain a radiologist's interpretation. Please review associated procedure and/or operative report. ROS: ROS PE: Physical Exam Constitutional: she appears well-developed and well-nourished. HENT: Head: Normocephalic and atraumatic Eyes: EOM are normal. Neck: Neck Supple Skin: Warm and dry Pulmonary/Chest: Effort normal. No respiratory distress. Neurological: she is alert and attentive. Speech is clear, coherent, and not pressured. Psychiatric: she has a normal mood and affect. Cardiovascular: 2+ pedal pulse in right foot Ortho: They walk without deficiency in gait. She is nontender to palpation along the medial lateral joint line of her bilateral knees. She has full range of motion without pain in her bilateral knees. She has a palpable large fluid like mass in the posterior popliteal fossa of her right knee. She has 5 out of 5 strength knee flexion/extension bilaterally. No pain or laxity with valgus or varus stress of her knees. Imaging: OUS GUIDE NEEDLE PLCMT ORTHO This report does not contain a radiologist's interpretation. Please review associated procedure and/or operative report. Medications: Outpatient Medications Marked as Taking for the 09/12/20 encounter (Office Visit) with RUBI Walker Medication Sig Dispense Refill * dexamethasone 0.5 MG tablet Take 0.5 mg by mouth 2 (two) times a day. * ezetimibe 10 MG tablet * fenofibrate 160 MG tablet Take 160 mg by mouth daily. * gabapentin 100 MG capsule Take 100 mg by mouth 3 (three) times daily. * Insulin Glargine-Lixisenatide 100-33 UNT-MCG/ML Solution Pen-injector Soliqua 100/33 100 unit-33 mcg/mL subcutaneous insulin pen * JARDIANCE 25 MG tablet * LANTUS SOLOSTAR 100 UNIT/ML injection (PEN) * NOVOLOG FLEXPEN 100 UNIT/ML injection (PEN) * rosuvastatin 10 MG tablet Take 10 mg by mouth nightly. * spironolactone 100 MG tablet Take 100 mg by mouth daily. * Telmisartan-HCTZ 80-25 MG Tab Take 1 tablet by mouth daily. * tretinoin 0.1 % cream Allergies: No Known Allergies Medical History: Past Medical History: Diagnosis Date * Diabetes mellitus (CMS/HCC) * Hypertension * SVT (supraventricular tachycardia) (CMS/HCC) Surgical History: Past Surgical History: Procedure Laterality Date * CHOLECYSTECTOMY * MASTECTOMY Left Social History: Social History Tobacco Use * Smoking status: Never Smoker * Smokeless tobacco: Never Used Substance Use Topics * Alcohol use: Yes Comment: socially * Drug use: No Family History: No family history on file. VITALS: Vitals: 09/12/20 1503 Patient Position: Sitting BP Location: Right arm Cuff size: Adult Large BP: 112/55 Pulse: 77 Estimated BMI Today: Estimated body mass index is 30.36 kg/mA? as calculated from the following: Height as of this encounter: 5' 4 (1.626 m). Weight as of this encounter: 80.2 kg (176 lb 14.4 oz). Portions of this note were dictated using Illumagear speech recognition software. Occasional wrong word or sound-alike substitutions may have occurred due to the inherent limitations of voice recognition software. Please read the chart carefully and recognize, using context, where the substitutions may have occurred. Procedures RUBI CESPEDES 09/12/2020 Signed by: RAFIQ WEEMS 09/13/2020 10:02 AM Justina Lawson MD [address], [place], [address], [facility] 11/28/2020 17:10:04 Orthopedic Consult Note : Patient Name: RANI RYAN Date of : 1955 Med Rec #: [id number] Date of Service: 10/24/2020 Disch Date: 10/24/2020 Office Visit Reason for Visit: Follow Up (Rt knee pain ashton cyst) History of Present Illness: Follow Up Rani Ryan presents for posterior right knee pain. She is an extremely pleasant 64-year-old female. She says that she started noticing increased swelling 5 months ago in the back of her knee. She states that she has a problem in that area the back of her knee. She denies anterior knee pain. She has seen several orthopedic people at [facility] for this issue. She has had the cyst drained 4 times at [facility] over the past couple months and says that they have just aspirated clear fluid from it. She has had 2 separate injections into the cyst that were steroid injection and feels that this did not help her at all. She exercises and works out around 3 times a week including including light weights. She lives with her . She is diabetic has a history of left breast cancer. She has A. Fib. At her last visit with me we performed a corticosteroid injection into her knee joint as well as aspiration of her Ashton's cyst. She says that this helped her for a few days though her Ashton's cyst returned. At this point she wants to talk to someone about a Ashton's cyst removal. She is not interested in discussing treatment options for her knee osteoarthritis due to the fact that she says she has no knee pain really. Assessment: Popliteal fossa swelling, right knee Right knee OA Recommendations and Plan: Follow Up (Rt knee pain ashton cyst) Sadly at this point we do not have much to offer her. I did discuss this case with Dr. Yee who does not perform Ashton cyst removals and suggested possibly [facility] as a referral point. I think that this would be in her best interest and we will set her up for this. OUS GUIDE NEEDLE PLCMT ORTHO Result Date: 09/12/2020 This report does not contain a radiologist's interpretation. Please review associated procedure and/or operative report. ROS: ROS PE: Physical Exam Constitutional: she appears well-developed and well-nourished. HENT: Head: Normocephalic and atraumatic Eyes: EOM are normal. Neck: Neck Supple Skin: Warm and dry Pulmonary/Chest: Effort normal. No respiratory distress. Neurological: she is alert and attentive. Speech is clear, coherent, and not pressured. Psychiatric: she has a normal mood and affect. Cardiovascular: 2+ pedal pulse in right foot Ortho: They walk without deficiency in gait. She is nontender to palpation along the medial lateral joint line of her bilateral knees. She has full range of motion without pain in her bilateral knees. She has a palpable large fluid like mass in the posterior popliteal fossa of her right knee. She has 5 out of 5 strength knee flexion/extension bilaterally. No pain or laxity with valgus or varus stress of her knees. Imaging: OUS GUIDE NEEDLE PLCMT ORTHO This report does not contain a radiologist's interpretation. Please review associated procedure and/or operative report. Medications: Outpatient Medications Marked as Taking for the 10/24/20 encounter (Office Visit) with RUBI Walker Medication Sig Dispense Refill * dexamethasone 0.5 MG tablet Take 0.5 mg by mouth 2 (two) times a day. * ezetimibe 10 MG tablet * fenofibrate 160 MG tablet Take 160 mg by mouth daily. * gabapentin 100 MG capsule Take 100 mg by mouth 3 (three) times daily. * Insulin Glargine-Lixisenatide 100-33 UNT-MCG/ML Solution Pen-injector Soliqua 100/33 100 unit-33 mcg/mL subcutaneous insulin pen * JARDIANCE 25 MG tablet * LANTUS SOLOSTAR 100 UNIT/ML injection (PEN) * NOVOLOG FLEXPEN 100 UNIT/ML injection (PEN) * rosuvastatin 10 MG tablet Take 10 mg by mouth nightly. * spironolactone 100 MG tablet Take 100 mg by mouth daily. * Telmisartan-HCTZ 80-25 MG Tab Take 1 tablet by mouth daily. * tretinoin 0.1 % cream Current Facility-Administered Medications for the 10/24/20 encounter (Office Visit) with RUBI Walker Medication Dose Route Frequency Provider Last Rate Last Admin * BUpivacaine 0.5 % (MARCAINE) 0.5 % injection 3 mL 3 mL Intrapleural Once RUBI Walker * lidocaine (XYLOCAINE) 2 % injection 3 mL 3 mL Other Once RUBI Walker * triamcinolone acetonide (KENALOG-40) injection 40 mg 40 mg Intra-articular Once RUBI Walker Allergies: No Known Allergies Medical History: Past Medical History: Diagnosis Date * Diabetes mellitus (CMS/HCC) * Hypertension * SVT (supraventricular tachycardia) (CMS/[facility]) Surgical History: Past Surgical History: Procedure Laterality Date * CHOLECYSTECTOMY * MASTECTOMY Left Social History: Social History Tobacco Use * Smoking status: Never Smoker * Smokeless tobacco: Never Used Substance Use Topics * Alcohol use: Yes Comment: socially * Drug use: No Family History: Family History Problem Relation Name Age of Onset * Aneurysm Mother * No Known Problems Father VITALS: Vitals: 10/24/20 1545 Patient Position: Sitting BP Location: Right arm Cuff size: Adult Large BP: 134/54 Pulse: 80 Estimated BMI Today: Estimated body mass index is 31.17 kg/mA? as calculated from the following: Height as of this encounter: 5' 4 (1.626 m). Weight as of this encounter: 82.4 kg (181 lb 9.6 oz). Portions of this note were dictated using [employer]um[employer] speech recognition software. Occasional wrong word or sound-alike substitutions may have occurred due to the inherent limitations of voice recognition software. Please read the chart carefully and recognize, using context, where the substitutions may have occurred. Procedures RUBI CESPEDES 10/24/2020 Signed by: RAFIQ WEEMS 10/24/2020 11:19 PM Justina Lawson MD [address], [place], [address], [facility] 11/28/2020 17:10:04 Procedures Surgical History Date Name Laterality Status Provider Name and Address Organization Details Recorded Time 11/29/19 21 Diabetic Foot Exam completed MD Malgorzata Zelaya[address], [place], [address], [facility] 11/28/2020 17:22:35 05/02/19 21 Diabetic Foot Exam completed MD Zulma Zelaya [address], [place], [address], [facility] 05/01/2020 16:03:34 01/20/20 20 Date of Last Colonoscopy completed NOMAN HOLLAND [facility] 05/01/2020 15:37:06 01/20/20 20 [facility] 15:36:46 11/04/19 20 Diabetic Foot Exam completed MD Zulma Zelaya [address], [place], [address], [facility] 11/04/2019 11:56:16 10/10/19 20 Diabetic Foot Exam completed MD Zulma Zelaya [address], [place], [address], [facility] 10/10/2019 16:21:30 07/20/19 20 Diabetic Foot Exam completed MD Zulma Zelaya [address], [place], [address], [facility] 07/20/2019 15:17:20 01/21/20 19 Date of Last Mammogram completed NOMAN HOLLAND [facility] 05/01/2020 15:37:02 01/20/20 19 Diabetic Foot Exam completed MD Zulma Zelaya [address], [place], [address], [facility] 01/19/2019 16:37:31 12/17/19 19 Diabetic Foot Exam completed MD Zulma Zelaya [address], [place], [address], [facility] 12/16/2018 15:54:12 02/16/18 86 Cholecystectomy completed MD Zulma Zelaya [address], [place], [address], [facility] 12/16/2018 15:40:30 simple mastectomy completed MD Zulma Zelaya [address], [place], [address], [facility] 12/16/2018 15:41:14 Partial Hysterectomy completed MD Zulma Zelaya [facility] [address], [place], [address], [facility] 12/16/2018 15:41:50 Orthopedic Surgery completed MD Zulma Zelaya [facility] [address], [place], [address], [facility] 12/16/2018 15:48:38 Imaging Results None recorded. Procedure Notes None recorded. Medical Equipment None Reported. Allergies No known drug allergies Medications Name Sig Start Date Stop Date Status Note LastModified by Organization Details LastModified Time Prescriptio n - Change 01/19 completed Not Available Not Available Not Available Prescriptio n - Prior Authorizati on Request 01/30 completed Not Available Not Available Not Available tretinoin 0.1 % topical cream 01/02 completed Not Available Not Available Not Available neomycin-po lymyxin-hyd rocort 3.5 mg/mL-10,00 0 unit/mL-1 % ear solution 12/16 completed Not Available Not Available Not Available acetaminoph en 325 mg tablet Take 1 tablet every 8 hours by oral route around the clock for 90 days. 01/02 completed Not Available Not Available Not Available doxycycline hyclate 100 mg capsule Take 1 capsule every day by oral route. 01/02 completed Not Available Not Available Not Available tizanidine 2 mg tablet Take 1 tablet every day by oral route at bedtime. 05/01 completed Not Available Not Available Not Available ibuprofen 800 mg tablet 12/16 completed Not Available Not Available Not Available spironolact one 100 mg tablet 11/03 completed Not Available Not Available Not Available doxycycline hyclate 50 mg capsule 1 cap QD active Not Available Not Available Not Available gabapentin 400 mg capsule Take 1 capsule every day by oral route at bedtime. 11/03 completed Not Available Not Available Not Available metronidazo le 500 mg tablet 12/16 completed Not Available Not Available Not Available ciprofloxac in 500 mg tablet 12/16 completed Not Available Not Available Not Available tramadol 50 mg tablet Take 1 tablet every 8 hours by oral route as needed. active Not Available Not Available No t Available ketorolac 0.5 % eye drops 08/01 completed Not Available Not Available Not Available potassium chloride ER 20 mEq tablet,exte nded release(par t/cryst) Take 1 tablet every day by oral route for 90 days. 01/02 completed Not Available Not Available Not Available prednisolon e acetate 1 % eye drops,suspe nsion 08/01 completed Not Available Not Available Not Available magnesium oxide 400 mg (241.3 mg magnesium) tablet 08/01 completed Not Available Not Available Not Available aspirin 325 mg tablet,fuentes yed release Take 1 tablet every day by oral route. active Not Available Not Available No t Available ferrous sulfate 325 mg (65 mg iron) tablet 05/01 completed Not Available Not Available Not Available polymyxin B sulfate 10,000 unit-trimet hoprim 1 mg/mL eye drops 08/01 completed Not Available Not Available Not Available gabapentin 300 mg capsule Take 1 capsule every day by oral route at bedtime. active Not Available Not Available No t Available mupirocin 2 % topical ointment active Not Available Not Available Not Available metoprolol succinate ER 25 mg tablet,exte nded release 24 hr Take 1 tablet every day by oral route in the morning for 90 days. 05/01 completed Not Available Not Available Not Available polyethylen e glycol 3350 17 gram/dose oral powder 12/16 completed Not Available Not Available Not Available methylpredn isolone 4 mg tablets in a dose pack 12/16 completed Not Available Not Available Not Available dexamethaso ne 0.5 mg tablet 05/31 completed Not Available Not Available Not Available celecoxib 100 mg capsule 01/24 completed Not Available Not Available Not Available doxycycline hyclate 100 mg tablet 10/03 completed Not Available Not Available Not Available neomycin-po lymyxin-hyd rocort 3.5 mg-10,000 unit/mL-1 % ear drops,susp INSTILL 4 DROPS INTO AFFECTED EAR(S) BY OTIC ROUTE 3 TIMES PER DAY 12/25 completed Not Available Not Available Not Available magnesium 200 mg tablet Take 1 tablet every day by oral route for 90 days. 01/02 completed Not Available Not Available Not Available Pneumovax-2 3 25 mcg/0.5 mL injection syringe ADM 0.5ML IM UTD 01/15 completed Not Available Not Available Not Available ezetimibe 10 mg tablet Take 1 tablet every day by oral route. active Not Available Not Available No t Available Novolog FlexPen U-100 Insulin aspart 100 unit/mL (3 mL) subcutaneou s Inject 10 units 3 times a day by subcutane ous route before meals for 90 days. active Not Available Not Available No t Available Finacea 15 % topical gel 05/01 completed Not Available Not Available Not Available Senna Plus 8.6 mg-50 mg tablet Take 1 tablet every day by oral route for 90 days. 2019 active Not Available Not Available Not Avai lable ciprofloxac in 0.3 %-dexametha sone 0.1 % ear drops,suspe nsion PUT 4 DROPS IN LEFT EAR EVERY 12 HOURS FOR 7 DAYS. 08/01 completed Not Available Not Available Not Available rosuvastati n 20 mg tablet Take 1 tablet every day by oral route. 01/02 completed Not Available Not Available Not Available Crestor 10 mg tablet Take 1 tablet every day by oral route. 07/26 completed Not Available Not Available Not Available telmisartan 80 mg-hydrochl orothiazide 25 mg tablet Take 1 tablet every day by oral route in the morning. active Not Available Not Available No t Available duloxetine 30 mg capsule,del ayed release Take 1 capsule every day by oral route. 01/02 completed Not Available Not Available Not Available fenofibrate 160 mg tablet Take 1 tablet every day by oral route at bedtime. active Not Available Not Available No t Available Sure Comfort Pen Needle 31 gauge x 07/01 active Not Available Not Available Not Available peg 3350-electr olytes 236 gram-22.74 gram-6.74 gram-5.86 gram solution 12/16 completed Not Available Not Available Not Available FreeStyle Lite Strips Take 1 strip 3 times a day by miscell. route before meals. active Not Available Not Available No t Available Lantus Solostar U-100 Insulin 100 unit/mL (3 mL) subcutaneou s pen Inject 30 units every day by subcutane ous route for 90 days. active Not Available Not Available No t Available Prevnar 13 (PF) 0.5 mL intramuscul ar syringe ADM 0.5ML IM UTD 01/19 completed Not Available Not Available Not Available Farxiga 5 mg tablet 05/01 completed Not Available Not Available Not Available Jardiance 10 mg tablet 1 tab PO QAM 08/11 completed Not Available Not Available Not Available Jardiance 25 mg tablet Take 1 tablet every day by oral route in the morning. active Not Available Not Available No t Available Soliqua 100/33 100 unit-33 mcg/mL subcutaneou s insulin pen Inject 60 units every day by subcutane ous route in the morning. 03/24 completed Not Available Not Available Not Available Soliqua 100/33 60 U 12/22 completed Not Available Not Available Not Available Linzess 72 mcg capsule Take 1 capsule every day by oral route. active Not Available Not Available No t Available Shingrix (PF) 50 mcg/0.5 mL intramuscul ar suspension, kit 03/24 completed Not Available Not Available Not Available Bydureon BCise 2 mg/0.85 mL subcutaneou s auto-inject or Inject 2 mg every week by subcutane ous route for 90 days. active Not Available Not Available No t Available Fluzone High-Dose 2018- (PF) 180 mcg/0.5 mL intramuscul ar syringe ADMINISTE R 0.5ML IN THE MUSCLE DIRECTED 01/19 completed Not Available Not Available Not Available Fluzone High-Dose Quad (PF) 240 mcg/0.7 mL IM syringe ADM 0.7ML IM UTD 01/15 completed Not Available Not Available Not Available Vitals Date Recorded Body height Body mass index (BMI) Body weight Respiratory rate Body temperature Heart rate Systolic And Diastolic Provider Name and Address Organization Details Last Updated DateTime 1 162.56 cm 31.6 kg/m2 20749 g 16 /min 97.9 [degF] 90 /min 122/68 mm[Hg] NOMAN HOLLAND [facility] 1 15:36:11 Date Recorded Respiratory rate Body height Body mass index (BMI) Body weight Body temperature Heart rate Systolic And Diastolic Provider Name and Address Organization Details Last Updated DateTime 1 16 /min 162.56 cm 30.9 kg/m2 17916.6 3 g 97.8 [degF] 68 /min 127/65 mm[Hg] Lashon Christian [facility] 1 15:47:52 Date Recorded Body height Heart rate Respiratory rate Body temperature Body mass index (BMI) Body weight Systolic And Diastolic Provider Name and Address Organization Details Last Updated DateTime 0 162.56 cm 85 /min 16 /min 97.8 [degF] 31.9 kg/m2 43439.1 8 g 139/70 mm[Hg] NOMAN HOLLAND [facility] 0 11:30:05 Date Recorded Body height Body mass index (BMI) Body weight Body temperature Respiratory rate Heart rate Systolic And Diastolic Provider Name and Address Organization Details Last Updated DateTime 1 162.56 cm 31.1 kg/m2 85542.2 2 g 97.5 [degF] 16 /min 74 /min 156/81 mm[Hg] Felsia Trent [facility] 1 16:40:51 Date Recorded Body height Body mass index (BMI) Body weight Body temperature Respiratory rate Heart rate Systolic And Diastolic Provider Name and Address Organization Details Last Updated DateTime 1 162.56 cm 29.2 kg/m2 03539.7 g 97.6 [degF] 16 /min 67 /min 125/70 mm[Hg] Josette Medel [facility] 1 12:52:08 Social History Question Answer Notes LastModified by Organizat ion Details LastModified Time Tobacco Smoking Status Never Smoker Justina Lawson MD [address], [place], [address], [facility] 12/16/2018 15:39:37 What Is Your Level Of Caffeine Consumption? 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 No Information n ot available 07/20/2019 In The 14 Days Before Symptom Onset, Have You Had Close Contact With A Person Who Is Under Investigation For COVID-19 While That Person Was Ill? No Information not available 07/20/2019 Have You Been To An Area Known To Be High Risk For COVID-19? No Information not available 07/20/2019 Which Illicit Or Recreational Drugs Have You Used? No Information not available 12/16/2018 Have You Directly Handled Bats, Rodents, Or Primates From Ebola Endemic Areas? No Information not available 08/01/2020 Have You Processed Blood Or Body Fluids From An Ebola Virus Disease Patient Without Appropriate PPE? No Information not available 08/01/2020 Have You Had Household Contact With An Ebola Virus Disease Patient? No Information not available 08/01/2020 Have You Had Direct Contact With A Body In An Ebola-affected Area Without Appropriate PPE? No Information not available 08/01/2020 Have You Had Percutaneous (e.g. Needle Stick) Or Mucous Membrane Exposure To Blood Or Body Fluids From An Ebola Virus Disease Patient? No Information not available 08/01/2020 Have You Had Other Close Contact With An Ebola Virus Disease Patient In Health Care Facilities Or Community Settings? No Information not available 08/01/2020 Do You Reside In Or Have You Traveled To An Area Where Ebola Virus Transmission Is Active? No Information not available 08/01/2020 Are There Any Guns Present In Your Home? No Information not available 08/01/2020 High Number Of Sexual Partners No Information not available 08/01/2020 History Of Inconsistent/no Condom Use No Information not available 08/01/2020 Live Alone Or With Others? With Others Information not available 12/16/2018 Marital Status Informatio n not available 12/16/2018 What Was The Date Of Your Most Recent Tobacco Screening? 11/28/2020 [email or web address] Information not available 11/28/2020 Mother With HIV? No Informat ion not available 08/01/2020 Performs Monthly Self-breast Exam? No Information no t available 08/01/2020 Seat Belts Used Routinely Yes Information not available 08/01/2020 Sexual Partner Has HIV? No Information not available 08/01/2020 Sexual Partner Uses IV Drugs? No Information not available 08/01/2020 Smoke Alarm In Home Yes Information not available 08/01/2020 Do You Use Sunscreen Routinely? No Information not available 08/01/2020 Have You Used IV Drugs? No Information not available 08/01/2020 Sex: Unknown Functional Status Question Answer Note LastModified by Organizat ion Details LastModified Time What is your level of alcohol consumption? Occasional Information not available 12/16/2018 Are you currently employed? Yes Information not available 12/16/2018 Are you able to care for yourself independently? Yes Information not available 12/16/2018 What is your occupation? retired Information not available 12/16/2018 Mental Status None recorded. Family History Relationship Description Onset Age of this Age Resolved Age Notes LastModified by Organization Details LastModified Time Mother Aneurysm of cerebral artery 70 [email or web address] Not available 2018 15:36:52 Mother Diabetes mellitus [email or web address] Not available 2018 15:37:21 Father Gunshot wound 50 [email or web address] Not available 2018 15:37:35 Brother Malignant neoplasm of liver 50 [email or web address] Not available 2018 15:38:08 Sister Diabetes mellitus [email or web address] Not available 2018 15:38:29 Sister Cerebrovascu lar accident 50 [email or web address] Not available 15:38:43 Medical History No medical history recorded. Gynecological History Statement/Question Response Date of Last Mammogram 01/20/2019 Date of Last Colonoscopy 01/20/2020 Obstetrics History GPAL:G 0 P 0 0 0 0 Immunizations Vaccine Type Date Status Note Provider Nam e and Address Organization Details Recorded Time Influenza, split virus, quadrivalent, preservative 9 completed Not Available [facility] 11/25/2020 12:59:34 Pneumococcal conjugate PCV 13 9 completed Not Available [facility] 11/25/2020 12:59:34 zoster recombinant 9 completed Not Available [facility] 11/25/2020 12:59:34 Influenza, split virus, quadrivalent, preservative 0 completed Not Available [facility] 11/25/2020 12:59:34 pneumococcal polysaccharide PPV23 0 completed Not Available [facility] 11/25/2020 12:59:34 SARS-COV-2 (COVID-19) vaccine, UNSPECIFIED 1 completed Not Available [facility] 11/25/2020 12:59:34 SARS-COV-2 (COVID-19) vaccine, UNSPECIFIED 1 completed Not Available [facility] 11/25/2020 12:59:34 Past Encounters Encounter ID Performer Location Encounter Start Date Encounter Closed Date Diagnosis/Indication Diagnosis SNOMED-CT Code Diagnosis ICD10 Code Diagnosis IMO Codes Diagnosis Note [id number] Justina Lawson MD [employer] [facility] [place] [address] 12/16/2018 14:19:04 12/16/2018 15:58:03 Benign hypertension 15837011 I10 Type 2 evy betes mellitus without complication 660198356 E11.9 Mixed hyperlipidemia 267 742012 E78.2 Body mass index 30+ - obesity 707984004 Z68.31 History of malignant neoplasm of breast 691140741 Z85.3 S/P Lt mastectomy 2002 Osteoarthritis 529761914 M19.90 Kidney stone 30489932 N2 0.0 Screening mammography 24 339205 Z12.31 Screening for malignant neoplasm of cervix 139550724 Z12.4 Screening for malignant neoplasm of colon 163567675 Z12.11 Viral screening 36253465 4 Z11.59 Active or passive immunization 062859642 Z23 Diverticul osis of colon without diverticulitis 846298622 K57.30 asymptomat ic Menopause 048351310 Z78. 0 Diabetic p eripheral neuropathy 350778916 E11.40 Obstructiv e sleep apnea of adult 9255696466 103 G47.33 will try to get copy of sleep study from [facility] [id number] Justina Lawson MD [employer] [address] [place] [address] 01/19/2019 15:48:59 01/19/2019 16:50:19 Adult health examination 517415257 Z00.01 Benign hypertension 1072 5009 I10 Insulin tr eated type 2 diabetes mellitus 985404898 Z79.4 last ophth eval 01/17/19BG 50-270 last A1c 12/21/18 above goal , change to soliqua 60 , stop lantus 100,cont' novolog , fax BG 1 weeklast KASSIDY 12/21/18nut rition eval Kidney stone 03957423 N2 0.0 KUB -ve 12/20/18 Mixed hyperlipidemia 267 683068 E78.2 last LDL 12/21/18 , increase rosuva , recheck 6 weeks Menopause 754771861 Z78. 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 502558633 E11.3299 last ophth eval 01/17/19 Obstructiv e sleep apnea of adult 4258814940 103 G47.33 will try to get copy of sleep study from [facility] Osteoarthritis 236154100 M19.90 fair control with gabapentin History of malignant neoplasm of breast 476326813 Z85.3 S/P Lt mastectomy 2002 Diverticul osis of colon without diverticulitis 931809981 K57.30 asymptomat ic Diabetic p eripheral neuropathy 464610373 E11.40 gabapentin Body mass index 30+ - obesity 445561960 Z68.31 education Chronic constipation 236 733894 K59.09 good control with linzess 72 qd Microalbuminuria 1754780 06 R80.9 on ARB Screening mammography 24 365173 Z12.31 Screening for malignant neoplasm of cervix 935397667 Z12.4 Screening for malignant neoplasm of colon 251708315 Z12.11 Active or passive immunization 002701469 Z23 up to date [id number] Justina Lawson MD [facility], [facility] [address] [facility] [address] [address] 07/20/2019 14:25:10 07/20/2019 15:25:04 Benign hypertension 49457927 I10 Insulin tr eated type 2 diabetes mellitus 037924627 Z79.4 last ophth eval 01/17/19BG 50-270 last A1c 12/21/18 above goal , change to soliqua 60 , stop lantus 100,cont' novolog , fax BG 1 weeklast KASSIDY 12/21/18nut rition eval Mixed hyperlipidemia 267 488538 E78.2 last LDL 11/5/19 , on rosuva , recheck Obstructiv e sleep apnea of adult 4175935086 103 G47.33 will try to get copy of sleep study from [facility] Chronic constipation 236 217730 K59.09 good control with linzess 72 qd Body mass index 30+ - obesity 072580583 Z68.31 education Screening mammography 24 621017 Z12.31 last mammogram 03/15/19 Synovial c yst of right knee 9243931116 58821 M71.21 Screening for malignant neoplasm of cervix 073751633 Z12.4 Screening for malignant neoplasm of colon 784964678 Z12.11 Active or passive immunization 151898782 Z23 up to date Kidney stone 84778346 N2 0.0 KUB -ve 12/20/18 [id number] Justina Lawson MD [employer] [address] [place] [address] [address] [place] [address] 10/10/2019 15:31:01 10/10/2019 16:33:35 Supraventricular tachycardia 5929288 I47.1 had cardiac ablation 09/27/19 , will get Copy of cardiology Synovial c yst of right knee 8171914794 87611 M71.21 seen ortho , had aspiration 08/2019 , Benign hypertension 1072 5009 I10 Mixed hyperlipidemia 267 459698 E78.2 last LDL 07/20/19 , increase rosuva , recheck 6 weeks Type 2 evy betes mellitus without complication 589924176 E11.9 Insulin tr eated type 2 diabetes mellitus 277454307 Z79.4 last ophth eval 01/17/19BG 50-180 with hypoglycem ia symptomesw ill decrease lantus to 45 from 50 last A1c 07/20/19 above goal ,cont' novolog , fax BG 1 weeklast KASSIDY 12/21/18nut rition eval Body mass index 30+ - obesity 653932916 Z68.31 educationl ost 5 LBs Screening mammography 24 Z12.31 last mammogram 03/15/19 Screening for malignant neoplasm of cervix 993250221 Z12.4 Screening for malignant neoplasm of colon 397529861 Z12.11 Active or passive immunization 781873929 Z23 up to date [id number] Justina Lawson MD [employer] [facility] [address] [place] [address] 11/04/2019 11:12:42 11/04/2019 12:03:42 Cramp in lower limb 179084029 R25.2 Anemia 816778143 D64.9 Diabetic p eripheral neuropathy 203049102 E11.40 gabapentin Insulin tr eated type 2 diabetes mellitus [id number] Z79.4 last ophth eval 01/17/19BG 50-180 with hypoglycem ia symptomesl ast A1c 07/20/19 above goal ,cont' novolog , fax BG 1 weeklast [facility] 12/21/18nut rition eval Pain in right knee 30552 29766 35162 M25.561 Screening mammography 24 738928 Z12.31 last mammogram 03/15/19 Screening for malignant neoplasm of cervix 638207027 Z12.4 per pt had PAP 02/2019 Screening for malignant neoplasm of colon 060016344 Z12.11 Active or passive immunization 889693794 Z23 up to date Otitis externa 1996035 H 60.90 [id number] Justina Lawson MD [facility], [facility] [address] [place] [address] 05/01/2020 15:08:39 05/01/2020 16:14:14 Preoperative cardiovascular examination 833234205 Z01.810 OK for cataract Insulin tr eated type 2 diabetes mellitus 811539283 Z79.4 last ophth eval 01/17/19BG 50-180 with hypoglycem ia symptomesl ast A1c 07/20/19 above goal ,cont' novolog , fax BG 1 weeklast KASSIDY 12/21/18nut rition eval Diabetic p eripheral neuropathy 360478072 E11.40 gabapentin Mixed hyperlipidemia 267 432807 E78.2 last LDL 07/20/19 , increase rosuva , recheck 6 weeks Benign hypertension 1072 5009 I10 Chronic constipation 236 688445 K59.09 good control with linzess 72 qd Cramp in lower limb 4499 25085 R25.2 Hypokalemia 75815466 E87 .6 recheck Osteoarthritis 381178816 M19.90 fair control with gabapentin Screening mammography 24 459603 Z12.31 last mammogram 03/15/19 Screening for malignant neoplasm of cervix 466706451 Z12.4 per pt had PAP 02/2019 Screening for malignant neoplasm of colon 815238568 Z12.11 last C scope 01/20/20 , good for 5 years Active or passive immunization 058622020 Z23 up to date [id number] Justina Lawson MD [employer] [address] ,[address] [address] 08/01/2020 15:18:29 08/01/2020 16:30:26 Adult health examination 022385071 Z00.01 Insulin tr eated type 2 diabetes mellitus 834713803 Z79.4 last ophth eval 01/17/19 BG 50-180 with hypoclycem ic symptoms last A1c 05/11/20 above goal , cont' novolog , fax BG 1 week last K[facility]IDY 05/11/20 nutrition eval Osteoarthritis 192291407 M19.90 fair control with gabapentin Benign hypertension 1072 5009 I10 last EKG 05/01/20 Anemia 824666706 D64.9 Chronic constipation 236 112898 K59.09 good control with linzess 72 qd Diabetic p eripheral neuropathy 600329806 E11.40 gabapentin Diverticul osis of colon without diverticulitis 136698617 K57.30 asymptomat ic History of malignant neoplasm of breast 282999849 Z85.3 S/P Lt mastectomy 2001 Kidney stone 69479238 N2 0.0 KUB -ve 12/20/18 Menopause 807803635 Z78. 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 939629042 E11.3299 last ophth eval 01/17/19 Obstructiv e sleep apnea of adult 3475226319 103 G47.33 will try to get copy of sleep study from E Supraventr icular tachycardia 0892598 I47.1 had cardiac ablation 09/27/19 , will get Copy of cardiology Osteoarthr itis of right knee joint 3491944496 13987 M17.11 Screening mammography 24 490414 Z12.31 last mammogram 02/2020 per pt Screening for malignant neoplasm of cervix 807021478 Z12.4 per pt had PAP 02/2019 Screening for malignant neoplasm of colon 728430965 Z12.11 last C scope 01/20/20 , good for 5 years Active or passive immunization 848072763 Z23 up to date [id number] Justina Lawson MD [employer] [address] [place] [address] 11/28/2020 16:01:47 11/28/2020 17:34:11 Goiter 8658018 E04.9 per pt had lab work @ [facility] , result [place] [place] for 12/12/20 Pain in lower limb 18173 006 M79.669 B/LRTC 1 week if not better Intermitte nt claudication 31101090 I73.9 History of malignant neoplasm of breast 759500825 Z85.3 S/P Lt mastectomy 2001 Insulin tr eated type 2 diabetes mellitus 367595996 Z79.4 last ophth eval 01/2020 No hypoclycem ic symptoms last A1c 08/08/20 above goal , cont' novolog , increase jardiance to 25 , fax BG 1 week last [facility] 08/08/20 seen nutrition eval Mixed hyperlipidemia 267 137737 E78.2 last LDL 08/07/20 , recheck Obstructiv e sleep apnea of adult 4532081670 103 G47.33 will try to get copy of sleep study from [facility] Screening mammography 24 501798 Z12.31 last mammogram 02/2020 per pt Screening for malignant neoplasm of cervix 812258459 Z12.4 per pt had PAP 02/2019 Screening for malignant neoplasm of colon 902623608 Z12.11 last C scope 01/20/20 , good for 5 years Active or passive immunization 983940682 Z23 up to date [id number] Justina Lawson MD [employer] [employer] [address] [place] [address] 12/19/2020 12:37:14 12/19/2020 13:34:07 Low back pain 920587337 M54.50 Insulin tr eated type 2 diabetes mellitus 938736583 Z79.4 last ophth eval 01/2020 No hypoclycem ic symptoms last A1c 08/08/20 above goal ,decrease lantus to 40 , add bydureon , BG TID , fax 2 weekslast [facility] 08/08/20 seen nutrition eval Thyroid nodule 264674065 E04.1 Hypercalcemia 83680261 E 83.52 stop Mixed hyperlipidemia 267 468467 E78.2 last LDL 11/30/20 , recheck 6 weeks Health Concerns Section Related Observation LastModified by Organization Detai ls LastModified Time None Recorded Concern Status LastModified by Organization Details LastModified Time None Recorded Advance Directives Directive None Recorded Payers Insurance Date Sequence Insurance Name Policy Number Policy Kaminski Covered Member ID Kaminski Member ID Guarantor Name 11/19/2020 1 [place] Rani Ryan [id number] Rani Ryan 08/26/2023 2 FOR LIFE ( - MEDICARE SUPPLEMENT) Rani Ryan [id number] Rani Ryan 08/26/2023 1 [employer] (MEDICARE REPLACEMENT/ ADVANTAGE - PPO) [id number] Rani Ryan [id number] Rani Ryan Notes Date Note Type Note Provider Name and Address Organization Details Recorded Time 11/04/2019 text/html Hypertension F/UReported by PatientHPIFor medications, patient reportstaking medications as directedandno side effects from medication. For lifestyle, patient reportsregular exercise,limiting/teena iding salt, andcompliant with low salt diet. For associated symptoms, patient reportsno dizziness,no lightheadedness,no chest pain,no shortness of breath,no palpitations,no edema,no calf pain with exertion, andno headache. still have leg cramps , has neuropathy Justina Lawson MD [address], [place], [address], [facility] 11/04/2019 12:00:32 05/01/2020 text/html Hypertension F/UReported by PatientHPIFor medications, patient reportstaking medications as directedandno side effects from medication. For lifestyle, patient reportsregular exercise,limiting/teena iding salt, andcompliant with low salt diet. For associated symptoms, patient reportsno dizziness,no lightheadedness,no chest pain,no shortness of breath,no palpitations,no edema,no calf pain with exertion, andno headache. having cataract surg Mounir Mika, MD [address], [place], [address], [facility] 05/01/2020 16:11:27 08/01/2020 text/html Medicare Annual Wellness VisitReported by PatientSocial/Behavio ral HistoryFor diet and nutrition, patient reportshealthy diet. For fracture risk, patient reportsno history of fractures,no recent explained fracture,no sudden unexplained fractures, andno previous musculoskeletal injuries. For physical activity, patient reportsexercises on a regular basis,recent increase in physical activity,good physical condition, anddiscussed exercise habits.Mental Status:For depression risk, patient reportsnever feels sad, empty, or tearful,no loss of interest in activities,no significant changes in weight,no sleep disturbances or insomnia,no agitation,no loss of energy,no feelings of worthlessness or guilt,no thoughts of suicide,no history of depression, andno history of mood disorders. For orientation, patient reportsno disorientation to time,no disorientation to date, andno disorientation to place. For concentration and memory, patient reportsno decreased concentrating ability,no memory lapses or loss, anddoes not forget words. For speech/motor difficulties, patient reportsno speech difficulties,no difficulty expressing formulated concepts,no difficulty with fine manipulative tasks,no difficulty writing/copying,no slowed reaction time, anddoes not knock things over when trying to pick them up.Functional AbilityFor hearing, patient reportsno loss of hearing. For vision, patient reportsno vision problems. For activities of daily living, patient reportsable to bathe with limited or no assistance,able to contol urination and bowels,able to dress with limited or no assistance,able to feed self with limited or no assistance,able to get out of chair or bed with limited or no assistance,able to groom with limited or no assistance, andable to toilet with limited or no assistance. For instrumental activities of daily living, patient reportsable to do house work with limited or no assistance,able to grocery shop with limited or no assistance,able to manage medications with limited or no assistance,able to manage money with limited or no assistance,able to prepare meals with limited or no assistance, andable to use the phone with limited or no assistance. For falls risk assessment, patient reportsno frequent falls while walking,no fall in the past year, andno dizziness/vertigo. For home safety, patient reportsuse of seatbeltsandno vision or hearing loss while driving. Hypertension F/UReported by PatientHPIFor medications, patient reportstaking medications as directedandno side effects from medication. For lifestyle, patient reportsregular exercise,limiting/teena iding salt, andcompliant with low salt diet. For associated symptoms, patient reportsno dizziness,no lightheadedness,no chest pain,no shortness of breath,no palpitations,no edema,no calf pain with exertion, andno headache. still have Rt knee pain , seen orth , have couple of drainage Justina Lawson MD [address], [place], [address], [facility] 08/01/2020 16:28:16 11/28/2020 text/html Hypertension F/UReported by PatientHPIFor medications, patient reportstaking medications as directedandno side effects from medication. For lifestyle, patient reportsregular exercise,limiting/teena iding salt, andcompliant with low salt diet. For associated symptoms, patient reportsno dizziness,no lightheadedness,no chest pain,no shortness of breath,no palpitations,no edema,no calf pain with exertion, andno headache. went to ER for leg pain and numbness , had ^ DDimer , Ct chest was -ve for PE , but showed goiter , had labs , US PendingER Dx leg pain and dehydration , Justina Lawson MD [address], [place], [address], [facility] 11/28/2020 17:28:27 12/19/2020 text/html Hypertension F/UReported by PatientHPIFor medications, patient reportstaking medications as directedandno side effects from medication. For lifestyle, patient reportsregular exercise,limiting/teena iding salt, andcompliant with low salt diet. For associated symptoms, patient reportsno dizziness,no lightheadedness,no chest pain,no shortness of breath,no palpitations,no edema,no calf pain with exertion, andno headache. F/U on labs , and X raysdid not bring meds Justina Lawson MD [address], [place], [address], [facility] 12/19/2020 13:32:22 OBGyn Episode No OBEpisode recorded.
--- OUTSIDE RECORDS SUMMARY | 2025-01-06 09:10 | XMS_ITS | Encounter Summary ---
Author Organization [facility] Address [address] [place] [address] Care Team Providers Care Production Machine Operator Name Role Phone Kenneth Gates MD Unavailable Liyah Alba APRN-IT TRAINEE Primary Care Provider [phone] Encounter Details Date Type Department Care Team (Late Contact Info) Description 11/07/2024 Results Follow-Up [facility] - Endocrinology [address] [place] [phone] Joaquina Peterson MD [address] [place] [address] [address] [place] [address] Social History Tobacco Use Types Packs/Day Years Used Date Smoking Tobacco: Never Smokeless Tobacco: Never Alcohol Use Standard Drinks/Week Comments Yes 0 (1 standard drink = 0.6 oz pur e alcohol) SOCIAL Comments Unknown Sex and Gender Information Value Date Recorded Sex Assigned at Not on file 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 Gender Identity Not on file Sexual Orientation Not on file documented as of this encounter Plan of Treatment Upcoming Encounters Date Type Department Care Team (Late Contact Info) Description 05/29/2025 3:40 PM CDT Office Visit [facility] - Endocrinology [address] [place] [phone] Joaquina Peterson MD [address] [place] [address] [address] [place] [phone] documented as of this encounter Visit Diagnoses Not on filedocumented in this encounter Care Teams Production Machine Operator Relationship Specialty Start Date End Date Liyah Alba APRN-MAURILIO [address] [place] [id number] PCP - General Nurse Practitioner 05/14/21 [place] [address] [phone] Consulting Physician Cardiac Electrophysiology 10/28/19 documented as of this encounter
--- OUTSIDE RECORDS SUMMARY | 2025-01-06 09:10 | XMS_ITS | Clinical Summary ---
Author Organization [facility] Address [address] [place] [address] Care Team Providers Care Batch Weigher Name Role Phone Liyah Alba NP Primary Care Provider [phone] Allergies No known active allergies Medications vitamin E (AQUASOL E) 100 unit capsule 6 Active ascorbic acid (VITAMIN C) 1,000 mg tablet 0.5 tablets (500 mg total) daily 6 Active insulin aspart U-100 (NovoLOG) 100 unit/mL injection Inject under the skin 3 (three) times a day before meals Active telmisartan-hydr ochlorothiazid (MICARDIS HCT) 80-25 mg per tablet Take 1 tablet by mouth daily Active chromium 200 mcg tablet 1 tablet (200 mcg total) Active cyanocobalamin (Vitamin B-12) 50 mcg tablet Take 1 tablet (50 mcg total) by mouth daily Active ginkgo biloba 40 mg tablet Take 100 mg by mouth Active lutein 6 mg capsule Take by mouth Active biotin 1 mg tablet Take 1 tablet (1,000 mcg total) by mouth 3 (three) times a day Active cod liver oil-ascorbic acid tablet,chewable Take by mouth Active rosuvastatin (CRESTOR) 10 mg tablet Crestor 10 mg tablet Active fenofibrate (TRIGLIDE) 160 mg tablet daily Active blood glucose diagnostic (FreeStyle Lite Strips) strip FreeStyle Lite Strips Active gabapentin (NEURONTIN) 400 mg capsule gabapentin 400 mg capsule Active tretinoin (RETIN-A) 0.1 % cream 0 Active prednisoLONE acetate (PRED FORTE) 1 % ophthalmic suspension 1 Active potassium chloride ER 20 mEq CR tablet 1 Active doxycycline hyclate 100 mg capsule 1 Active LANTUS 100 unit/mL (3 mL) pen for injection 1 Active multivitamin-Ca- iron-minerals tablet Take by mouth daily Active aspirin 325 mg tablet Take 1 tablet (325 mg total) by mouth daily Active cetirizine (ZyrTEC) 10 mg tabletIndication s:PND (post-nasal drip) Take 1 tablet (10 mg total) by mouth daily 30 tablet 3 2 Active fluticasone propionate (FLONASE) 50 mcg/actuation nasal sprayIndications :PND (post-nasal drip) Administer 2 sprays into each nostril daily 1 each 3 2 Active nystatin-triamci nolone creamIndications :cutaneous candidiasis Applied to the affected area of the ear(s) twice daily for 2 weeks. Then as needed 15 g 3 2 Active atenoloL (TENORMIN) 25 mg tablet Take 1 tablet (25 mg total) by mouth as needed Active glucosamine-keena droitin 500-400 mg capsule Take 1 capsule by mouth daily Active hydrocortisone 0.5 % ointment Apply tiny amount to ear canals twice a day for flaking 2 Active ibuprofen (ADVIL,MOTRIN) 800 mg tablet 2 Active mupirocin (BACTROBAN) 2 % ointment mupirocin 2 % topical ointment Active senna-docusate (PERICOLACE) 8.6-50 mg daily Active traMADoL (ULTRAM) 50 mg tablet 3 Active meloxicam (MOBIC) 7.5 mg tablet 3 Active ezetimibe (ZETIA) 10 mg tablet Take 1 tablet every day by oral route. Active HYDROcodone-acet aminophen (NORCO) 5-325 mg per tabletIndication s:Pain Take 1 tablet by mouth every 6 (six) hours as needed for pain 8 tablet 3 Active Jardiance 25 mg tablet 3 Active HYDROcodone-acet aminophen (NORCO) 5-325 mg per tabletIndication s:Pain Take 1 tablet by mouth every 6 (six) hours as needed for pain 5 tablet 4 Active Active Problems Problem Noted Date Diagnosed Date Trigger thumb of left hand 10/11/2023 Trigger thumb of right hand 10/21/2022 Thyroid nodule 12/19/2020 Goiter 11/25/2020 Hypercalcemia 08/11/2020 Status post catheter ablation of slow pathway Anemia 07/21/2019 Chronic constipation 01/19/2019 Microalbuminuria 01/19/2019 Nonproliferative diabetic retinopathy 12/24/2018 Diabetic peripheral neuropathy 12/16/2018 Diverticulosis of colon without diverticulitis 1 History of malignant neoplasm of breast 12/17/19 19 Mixed hyperlipidemia 12/16/2018 Kidney stone 12/16/2018 Obesity with body mass index 30 or greater 12/16 Osteoarthritis 12/16/2018 Bilateral impacted cerumen 12/13/2018 Dyslipidemia 04/27/2018 Intractable migraine without status migrainosus 04/27/2018 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 04/27/2018 SVT (supraventricular tachycardia) 04/27/2018 Mass of lower extremity 05/02/2016 Breast pain 01/07/2016 Acne vulgaris 10/17/2015 Essential hypertension 06/27/2015 JUAN ALBERTO (obstructive sleep apnea) 06/25/2015 Pseudofolliculitis barbae 12/15/2014 Cervicalgia 08/16/2014 Pain in shoulder 06/13/2014 Malignant neoplasm of breast 02/22/2014 Ovarian retention cyst 02/12/2012 Incomplete uterovaginal prolapse 02/12/2012 Otitis, externa, infective 03/10/2011 Hay fever 03/10/2011 Type 2 diabetes mellitus 06/13/2010 Cephalalgia 03/26/2010 Encounters Date Type Department Care Team Description 12/07/2024 Telephone [facility] Care Services [address] [place] [phone] Unknown, Notinfile from Last 3 Months Immunizations Immunization Administration Dates Next Due Influenza, Quadrivalent, Hig h Dose, Preservative Free, Intrr 12/10/2019 Influenza, Split 11/16/2009,02/02/2007, 5 Influenza, Trivalent, Cell Culture-based MDCK, Preservative Free, Antibiotic Free, Intramuscular 12/23/2016 Influenza, Trivalent, High D ose, Split, Preservative Free, Intramuscular 12/17/2018 Influenza, Trivalent, IM (MDV) 01/15/2012 Influenza, Whole 12/21/2002, 2,01/16/2001,12/10 PPD TEST 02/11/2000 Pfizer SARS-CoV-2 Monovalent Vaccination (12+ Yrs) PURPLE 11/18/2020,04/21/2020,03/31/2020 Pneumococcal Conjugate PCV 13 12/17/2018 Pneumococcal Polysaccharide PPV23 12/10/2019 Tdap 01/15/2012 ZOSTER Recombinant 02/17/2019,12/17/2018 Surgical History Surgery Date Site/Laterality Comments HYSTERECTOMY Hysterectomy - Partial, still have ovaries (Added by TW Conv) GALLBLADDER SURGERY Gallbladder Surgery - (Added by TW Conv) SHOULDER SURGERY 02/16/2013 - 02/15/2014 Left cartilage repair MASTECTOMY Left 2001 Medical History Medical History Date Comments Personal history of other en docrine, nutritional and metabolic disease History of diabetes mellitus - (Added by TW Conv) Personal history of other di seases of the musculoskeletal system and connective tissue History of arthritis - (Adde d by TW Conv) Visual disturbance Vision change s - (Added by TW Conv) Seasonal allergies Cataract Diabetes Heart murmur Diverticulitis Hypertension Type 2 diabetes mellitus Cancer (HCC) Kidney stone Migraines Allergic rhinitis Thyroid disease Ear problems Tinnitus Breast cancer (HCC) left breast cancer/ 2001 Family History Medical History Relation Name Comments Cancer Brother Diabetes Mother Hypertension Mother Hypertension - (Added by TW Conv) Glaucoma Other Family history of glaucoma - (Added by TW Conv) Cancer Sister Diabetes Sister Multiple sclerosis Sister Relation Name Status Comments Brother Mother Other Sister Social History Tobacco Use Types Packs/Day Years Used Date Smoking Tobacco: Never Smokeless Tobacco: Never Tobacco Cessation:Counseling Given: Not Answered Alcohol Use Standard Drinks/Week Comments Yes 0 (1 standard drink = 0.6 oz pur e alcohol) socially 3 times a month. AUDIT-C Answer Date Recorded Q1: How often do you have a drink containing alc ohol? 2-4 times a month 10/21/2023 Q2: How many drinks containi ng alcohol do you have on a typical day when you are drinking? 1 or 2 10/21/2023 Frequency of Binge Drinking Not on file 05/2023 Personal Safety Answer Date Recorded Have you ever been in or are you currently in a harmful physical or emotional relationship or is someone making you feel afraid or unsafe? Denies 10/21/2023 Comments No Sex and Gender Information Value Date Recorded Sex Assigned at Not on file Legal Sex Female 3:24 AM VOICE PROFESSOR Gender Identity Not on file Sexual Orientation Not on file Obstetrics History Para Term AB IAB SAB Ectopic Multiple Livin g Live Births 2 Date Outcome GA Total Labor Labor/2nd/3rd Weight Sex Type Anes PTL Natalya A1 A5 Name Clin Last Filed Vital Signs Vital Sign Reading Time Taken Comments Blood Pressure 136/63 10/21/2023 9:30 AM CDT Pulse 78 10/21/2023 9:30 AM CDT Temperature 36.6 C (97.9 F) 10/21/2023 9:30 AM CDT Respiratory Rate 17 10/21/2023 9:30 AM CDT Oxygen Saturation 100% 10/21/2023 9:30 AM CDT Inhaled Oxygen Concentration - - Weight 70.3 kg (155 lb) 03/22/2024 1:34 PM VOICE PROFESSOR Height 162.6 cm (5' 4) 03/22/2024 1:34 PM VOICE PROFESSOR Body Mass Index 26.61 03/22/2024 1:34 PM VOICE PROFESSOR Plan of Treatment Health Maintenance Due Date Last Done Comments Albumin Creatinine Ratio, Urine 1955 Depression Screening 1955 Hepatitis C Screening 1955 Foot Exam 1955 Hepatitis B Screening 11/25/1971 Well Visit 65+ 2018 Dilated Eye Exam 04/12/2019 04/12/2018 DTaP/Tdap/Td Vaccine (2 - Td or Tdap) 01/14/2022 01/15/2012 Osteoporosis Screening-Bone Density Scan 09/10/2024 09/10/2022, 01/19/2019, 12/16/2018 eGFR 10/06/2024 10/07/2023 Covid-19 Vaccine (2024-2 6 season) 2024 11/18/2020, 04/21/2020, 03/31/2020 Influenza Vaccine (#1) 2024 , 12/17/2018, 12/23/2016, Additional history exists Fall Risk Assessment 10/20/2024 10/21/2023 Lipid Panel 04/12/2025 04/12/2024, 06/2022, 01/27/2022, Additional history exists Breast Cancer Screening-Mammogram 04/19/2025 04/19/2024, 06/26/2023, 06/26/2023, Additional history exists Hemoglobin A1C 05/28/2025 11/27/2024, 03/20, 09/28/2019, Additional history exists Colon Cancer Screening-Colonoscopy 01/24/2029 01/24/2019 Colon Cancer Screening-CT Colonography Discontinued 01/24/2019 Colon Cancer Screening-DNA Stool Discontinued 01/25/20 19 Colon Cancer Screening-FIT Discontinued 01/24/2019 Colon Cancer Screening-Sigmoidoscopy Discontinued 01/24/2019 Zoster Vaccine Completed 02/17/2019, 12/17/2018 Pneumococcal vaccine 65+ Completed 12/10/2019, 02/2018 Procedures Procedure Name Priority Date/Time Associated Diagnosis Comments SCREENING MAMMOGRAM RIGHT W HECTOR UNILATERAL ONLY Schedule Routine, Read Routine (OP Routine) 04/19/2024 2:33 PM VOICE PROFESSOR Screening mammogram, encounter for EGFR Routine 10/07/2023 2:01 PM CDT COLONOSCOPY 01/24/2019 8:11 AM VOICE PROFESSOR HEMOGLOBIN A1C Routine 04/25/2018 5:44 AM CDT TNI WITH LIPID PANEL Routine 09/20/2017 2:33 AM CDT from Last 3 Months or Most Recently Relevant to Health Maintenance Results * Screening Mammogram Right W Hector Unilateral Only (04/19/2024 2:33 PM VOICE PROFESSOR) Anatomical Region Laterality Modality Breast Right Mammography Impressions 04/20/2024 1:52 PM VOICE PROFESSOR BI-RADS ATLAS category (right): 1 - Negative There is no mammographic evidence of malignancy. A 1 year screening mammogram is recommended. The patient has been or will be contacted. We recommend annual screening mammography for women at average risk of breast cancer beginning at age 40, based on guidelines of the [place] [employer] (ACR Practice Parameter for the Performance of Screening and Diagnostic Mammography) and [place] [employer]. For women with and elevated risk of breast cancer, please refer to the ACR Practice Parameter for specific screening recommendations. The patient will be entered into a reminder system with a target due date of 1 year for her next screening exam. Narrative 04/20/2024 1:52 PM VOICE PROFESSOR Screening Mammogram Right W Hector Unilateral Only: 04/19/24 The study was acquired using full field digital technology and interpreted from soft copy. 2D digital mammographic views, as well as 3D digital tomosynthesis were performed in the CC and MLO projections. This study was resulted using Computer-Aided Detection (CAD). CLINICAL: Screening mammogram, encounter for. Medical history includes breast cancer. No known family history of breast cancer. No comparisons were made when reading this study. BREAST TISSUE: There are scattered areas of fibroglandular density. FINDINGS: The patient is status post left mastectomy. No suspicious masses, suspicious calcifications, or other suspicious findings are seen within the right breast. There has been no suspicious change. us Self Screening Mammogram IMG MAMMO PROCEDURES Fi nal Result * eGFR (10/07/2023 2:01 PM CDT) eGFR 61 >=60 mL/min/1. 73 m2 Comment: Interpretive Data Reference Interval Normal >/= 90 mL/min/1.73m2 Mildly decreased* 60 - 89 mL/min/1.73m2 Mildly to moderately decreased 45 - 59 mL/min/1.73m2 Moderately to severely decreased 30 - 44 mL/min/1.73m2 Severely decreased 15 - 29 mL/min/1.73m2 Kidney Failure < 15 mL/min/1.73m2 *Relative to young adult level Estimated glomerular filtration rate is determined by the 2020 CKD-EPI equation recommended by the National Kidney Foundation (A Unifying Approach to GFR Estimation: Recommendations of the NKF-ASK Task Force on Reassessing the Inclusion of Race in Diagnosing Kidney Disease, JASN 2020). The CKD-EPI equation should not be used for patients with unstable renal function and has not been validated in children and those over 70. Current interpretive data was last reviewed 2020. Testing performed by: [facility], [address] [place] [address], [place]., [address] Blood 10/07/2023 2:01 PM CDT 10/07/2023 4:08 PM CDT us Jesús Mayberry Yuan DO LAB BLOOD ORDERABLES Final Result [facility] [facility] Department [place] [address] * COLONOSCOPY (01/24/2019 8:11 AM VOICE PROFESSOR) Anatomical Region Laterality Modality Other Narrative Procedure Note Biju Lopez MD - 01/24/2019 8:11 AM CST [facility] Patient Name: Murphy Ryan Procedure Date: 01/24/2019 8:11 AM Date of : 1955 Admit Type: Outpatient Age: 63 Gender: Female Attending MD: Biju Lopez M.D. Room: [facility] ENDOSCOPY ROOM 9 Note Status: Finalized Procedure: Colonoscopy Indications: Screening for colorectal malignant neoplasm (last colonoscopy was more than 10 years ago); h/o Uncomplicated Diverticulitis in 10/2018 Referring MD: Frdeeric Graham M.D. Providers: Biju Lopez M.D. Medicines: Monitored Anesthesia Care Complications: No immediate complications. Estimated blood loss:None. Estimated Blood Loss: Estimated blood loss: none. Procedure: Pre-Anesthesia Assessment: - The risks and benefits of the procedure and the sedation options and risks were discussed with the patient. All questions were answered and informed consent was obtained. - Immediately prior to administration ofmedications, the patient was re-assessed for adequacy to receive sedatives. - The anesthesia plan was to use monitoredanesthesia care (MAC). The benefits, risks and alternatives of theprocedure and sedation were discussed and informed consent was obtained. All questions were answered. Please referto the signed informed consent document in the medical record. The scope was passed under direct vision.The PCF [id number] endoscope was introduced throughthe anus and advanced to the cecum, identified by appendiceal orifice and ileocecal valve. The colonoscopy was somewhat difficult due to poor bowel prep and a redundant colon. The patient toleratedthe procedure well. The quality of the bowel preparation was evaluated using the BBPS ([place] BowelPreparation Scale) with scores of: Right Colon = 1 (portion of mucosa seen, but other areas not well seen due to staining, residual stool and/or opaque liquid), Transverse Colon = 2 (minor amount of residual staining, small fragments of stool and/or opaque liquid, but mucosa seen well) and Left Colon = 2(minor amount of residual staining, small fragments ofstool and/or opaque liquid, but mucosa seen well). Thetotal BBPS score equals 5. The quality of the bowel preparation was fair. The bowel preparation used was NuLytely. The quality of the bowel preparation wasfair. Findings: The perianal and digital rectal examinations were normal. Multiple small and large-mouthed diverticula were found in throughout the entire examined colon. Diverticulosis in the sigmoid colon was severe and sigmoid colon was tortuous/redundant. A 6 mm polyp was found in the transverse colon. The polyp was semi-sessile. The polyp was removed with a cold snare. Resection and retrieval were complete. Internal hemorrhoids were found during retroflexion. The hemorrhoids were mild. Impression: - Preparation of the colon was fair. There was semi-solid stool noted in the sigmoid colon andcecum that was irrigated. Views were adequate to exclude large mass lesions but was not sufficient to exclude small (<5mm) or sessile polyps. - Diverticulosis throughout the colon, most severein the sigmoid colon. - One 6 mm polyp in the transverse colon, removedwith a cold snare. Resected and retrieved. - Internal hemorrhoids. Recommendation: - Observe patient's clinical course followingtoday's Colonoscopy. - Await pathology. - Repeat Colonoscopy in the next 1 year givenquality of bowel prep. Would recommend that patient stay shreya low residue diet (no fiber, no nuts, vegetables) for 3-4 days preceeding the colonoscopy and that she completes a 2 day bowel prep. - High fiber diet. - Resume home medications. - Return to primary care physician as previously scheduled. - In the unusual situation that you developabdominal pain, bleeding or other significant problems in the days following this procedure please call my officeat [phone] to speak to my nurses. Afterhours and evenings please call [phone] and speak tothe GI fellow healthcare market consultant. Please tell them that Dr. Lopez did your procedure and that your were instructed to have the fellow call me or the physician covering for meto discuss the management of your condition. If youhave an urgent problem, [facility] and have the ER doctor call my office duringthe day or the GI Fellow after hours and weekends to arrange admission or transfer to our facility. - Call my nurse Rosemary Uribe RN in the GI office at [phone] for your final pathology results in 7days. Attending Participation: I personally performed the entire procedure. Electronically Signed By: Biju Lopez M.D. Biju Lopez M.D. 01/24/2019 8:50:42 AM . Number of Addenda: 0 Note Initiated On: 01/24/2019 8:11 AM Recognized by the [place] [employer] for promoting quality in endoscopy Biju Lopez MD ENDOSCOPY PROCEDURES Final Result * (ABNORMAL) TNI with LIPID PANEL (09/20/2017 2:33 AM CDT) Troponin I < 0.300 0.000 - 0.300 ng/mL 09/20/2017 3:12 AM T [facility] HISTORICAL RESULTS Comment: Reference using ALBERTO Chemiluminescence Negative: Repeat in 4-6 hours as indicated. Triglycerides 297(H) 0 - 149 mg/dL 09/20/2017 3:12 AM T [facility] HISTORICAL RESULTS Comment: LDL(measured) to follow due to Triglycerides >250 mg/dL. National Lipid Association/NCEP Guidelines: Normal < 150 mg/dL Borderline high 150-199 mg/dL High 200-499 mg/dL Very High >=500 mg/dL Cholesterol 191 0 - 199 mg/dL 09/20/2017 3:12 AM T [facility] HISTORICAL RESULTS Comment: National Lipid Association/NCEP Guidelines: Desirable < 200 mg/dL Borderline high: 200-239 mg/dL High Risk: >=240 mg/dL HDL Cholesterol 44 mg/dL 8 3:12 AM [facility] HISTORICAL RESULTS Comment: Reference Ranges: Males: >=40 mg/dL Females: >=50 mg/dL Cholesterol/HDL Ratio 4.3 09/20/2017 3:12 AM [facility] HISTORICAL RESULTS Comment: Optimal < 3.5:1 High > 5:1 09/20/2017 2:33 AM CDT 09/20/2017 2:37 AM CDT us Ryan Yuan MD LAB BLOOD ORDERABLES Final Result [facility] [employer] HISTORICAL RESULTS from Last 3 Months or Most Recently Relevant to Health Maintenance Insurance FOR LIFE UHC MEDICARE ADVANTAGE FOR LIFE [facility] AETNA [facility] MEDICARE ADVANTAGE FOR LIFE Advance Directives For more information, please contact: [phone] Documents on File Type Date Recorded 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
[2025-01-06 09:36] LABS: Estimated Glomerular Filt Rate 44
== END 2025-01-06 08:55 | disposition home or self-care (01) ==
PROVIDERS: PCP Nurse Practitioner Family
DX: K75.0 Abscess of liver (principal)
CPT/HCPCS: 74177; Q9967

== ENCOUNTER 2025-01-30 14:48 | Outpatient (CLI) | payer MEDICARE, OTHER, SELFPAY ==
--- NOTE | ~2025-01-30 | CT_ITS ---
EXAM/PROCEDURE: CT abdomen pelvis w con HISTORY: Liver abcess COMPARISON: January 06, 2025 TECHNIQUE: Contrast-enhanced CT abdomen pel FINDINGS: A percutaneous drain has been removed. In the area of previous drainage in the left lobe, 3.8 x 1.5 x 1.9 cm hypoattenuating and hypoenhancing heterogeneous area which appears slightly smaller in size compared to the January 06 exam. This area is interposed with what appears to be enhancing parenchyma consistent with either phlegmon or residual/or early scar formation. The remainder the liver appears normal. Patient status post cholecystectomy. Changes in the proximal sigmoid colon appears similar to minimally improved. Nonobstructive bowel gas pattern with no free air or pneumatosis. Moderate amount of stool present extending to the cecum. No AAA. No grossly inflamed appendix. Adrenal glands kidneys spleen pancreas and stomach appear stable. Bones appear intact. Small fat-containing inguinal hernias. Soft tissue fullness in the rectal region as seen on image 184 series 3. IMPRESSION: 1. Small area of persisting parenchymal abnormality and previous abscess drain, though no drainable fluid collection clearly present. Findings could represent persisting phlegmon versus post drain fibrosing changes. 2. Thickened appearance of the proximal sigmoid wall with mild infiltrative changes could represent persisting diverticulitis. There is also soft tissue fullness in the anorectal region. Malignant process in these areas is not excluded. Reviewed, dictated and finalized at location A. OGRAPHIC DEVELOPER AND PRINTER IMPRESSION: 1. Small area of persisting parenchymal abnormality and previous abscess drain, though no drainable fluid collection clearly present. Findings could represent persisting phlegmon versus post drain fibrosing changes. 2. Thickened appearance of the proximal sigmoid wall with mild infiltrative tahir nges could represent persisting diverticulitis. There is also soft tissue fulln ess in the anorectal region. Malignant process in these areas is not excluded.
--- OUTSIDE RECORDS SUMMARY | 2025-01-30 17:00 | XMS_ITS | Encounter Summary ---
Author Organization [facility] Address [address] [place] [address] Care Team Providers Care Diving Instructor Name Role Phone Unavailable Primary Care Provider Unavailabl e Reason for Referral * CT Scan (Urgent) - Closed Specialty Diagnoses / Procedures Referred By Lynne t Referred To Contact Diagnoses Liver abscess Procedures CT ABDOMEN PELVIS W CONTRAST Mayco Amador MD [address] [place] [address] Phone: tel: fax: [address] [address] Phone: tel: fax: Referral ID Status Reason Start Date Expiration Date Visits Re quested Visits Authorized [id number] Closed 01/27/2025 02/27/2026 1 1 BOOSTER ENGINEER Reason for Visit * Reason Onset Date Comments medical question 01/27/2025 Encounter Details Date Type Department Care Team (Late st Contact Info) Description 01/27/2025 Telephone [facility] INF[facility]OUS DISE[facility] [address] [facility] [address] [place] [address] Mayco Amador MD [address] [place] [address] medical question Social History Tobacco Use Types Packs/Day Years [...] worry about transportation for future doctor visits, pickup driver medication, etc.? No 2024 Housing Stability Answer [...] Patient needs follow up regardin 11/27/2024 Comments No Sex and Gender Information Value Date Recorded Sex Assigned at Not on file Legal Sex Female 11:26 PM CDT Gender Identity Not on file Sexual Orientation Not on file documented as of this encounter Miscellaneous Notes * Telephone Encounter - Amy Hooks RMA - 01/30/2025 2:08 PM CST Mirna from [facility] called to request CT orders be faxed [phone] Patient is waiting, they can not do scan with out the orders. Orders faxed via [employer] routing BOOSTER ENGINEER * Telephone Encounter - Mayco Amador MD - 01/27/2025 4:01 PM CST Called patient back. I did order CT abd/pelvis on 01/04 which has not been scheduled yet. She will find a [facility] close to her house to get lab done. I re-ordered CT abd/pelvis STAT for her to be done before 01/31 Mayco Amador BOOSTER ENGINEER * Telephone Encounter - Amy Hooks RMA - 01/27/2025 12:13 PM CST Patient would like a return call to discuss upcoming appt and what will be done at her appt 01/31/25 if labs order expected date is 02/05/[address] was not ordered. Patient stated that she is unsure how Dr. Amador will know liver infection/abscess is improving without repeat imaging and her current antibiotics have refills and she is unsure if she is to refill it without being seen or if infection is improving with current antibiotics. Patient wants to have labs done at [facility] if possible. Patient can be reached at [phone] BOOSTER ENGINEER documented in this encounter Plan of Treatment Upcoming Encounters Date Type Department Care Team (Late st Contact Info) Description 01/31/2025 11:30 AM GAS BOOSTER ENGINEER Office Visit [facility] INFECTIOUS DISEASE [facility] [address] [facility] [address] [place] [address] Mayco Amador MD [address] [place] [address] Scheduled Orders Name Type Priority Associated Diagnoses Orde r Schedule CT ABDOMEN PELVIS W CONTRAST Imaging Stat Liver abscess 1 Occurrences starting 01/27/2025 until 01/27/2026 documented as of this encounter Visit Diagnoses Diagnosis Liver abscess- Primary Abscess of liver documented in this encounter
--- OUTSIDE RECORDS SUMMARY | 2025-01-30 17:00 | XMS_ITS | Clinical Summary ---
Author Organization [facility] Address [address] [place] [address] Care Team Providers Care Jig Grinder Name Role Phone Kenneth Gates MD Unavailable [phone] Liyah Alba APRN-COSMETICS MACHINE OPERATOR Primary Care Provider [phone] Source Comments [facility],non-owned Affiliates and Associated Physician Practices is amultiple site organization consisting of ambulatory clinics and hospital sitesin [place], [place], [place] and [place]. This disclosure is being madepursuant to the Care Everywhere program and may not contain all information available regarding this patient. Last updated 17.[facility] Allergies Active Allergy Reactions Criticality Noted Date [...] by mouth once daily 90 tablet 5 10/28/19 20 Active acetaminophen (Tylenol) 325 MG tablet 10/04/19 21 Active GARLIC PO Active MULTIPLE VITAMINS-RETAIL SALES DIRECTOR ALS ER PO Take by mouth once daily Active aspirin (Aspirin) 325 MG tablet aspirin 325 mg tablet,delayed release Active glucosamine-ch ondroitin 500-400 MG capsule Take 1 (one) capsule by mouth once daily Active FREESTYLE LITE STRIPS test strip 10/09/19 21 Active traMADol (Ultram) 50 MG tablet Take 1 (one) tablet by mouth every 8 hours 01/09/20 22 Active Apple Cider Vinegar 300 MG Take 1 tablet by mouth Active Biotin 1000 MCG Take 1 (one) tablet by mouth 3 times daily Active Chromium 200 MCG Take 1 capsule by mouth Active Cyanocobalamin 50 MCG Take 1 (one) tablet by mouth once daily Active Ginkgo Biloba Extract 60 MG Take 1 capsule by mouth Two times a week Active Lantus SoloStar pen Inject 35 (thirty five) Units subcutaneously at bedtime 30 mL 3 03/11/19 25 Active senna-docusate (Senokot-S) 8.6-50 MG tablet Take 1 (one) tablet by mouth once daily Active empagliflozin (Jardiance) 25 MG tablet Take 1 (one) tablet by mouth once daily 30 tablet 5 06/14/19 25 Active telmisartan-hy droCHLOROthiaz ariana (Micardis HCT) 80-25 MG Take 1 (one) tablet by mouth once daily 90 tablet 4 08/31/19 25 Active Continuous Glucose Sensor (FreeStyle Ciro 3 Plus Sensor) MISC 07/27/19 25 Active diclofenac sodium (Voltaren) 1 % gel Apply 4 (four) g to affected area 4 times daily 07/20/19 25 Active tretinoin (Retin-A) 0.05 % cream 09/29/19 25 Active Semaglutide(0. 25 or 0.5MG/DOS) 2 MG/3ML Solution Pen-injector (Ozempic (0.25 or 0.5 MG/DOSE))Indic ations:Type 2 diabetes mellitus with other specified complication, with long-term current use of insulin ([facility]) Inject 0.5 mg subcutaneously every 7 days (once a week) 6 mL 3 11/08/19 25 Active gabapentin (Neurontin) 100 MG capsuleIndicat ions:Type 2 diabetes mellitus with other specified complication, with long-term current use of insulin (HCC) Take 2 (two) capsules by mouth 3 times daily 180 capsule 3 11/08/19 25 Active NovoLOG FLEXPEN penIndications :Type 2 diabetes mellitus with other specified complication, with long-term current use of insulin ([facility]) Inject 10 (ten) Units subcutaneously 3 times daily,before breakfast/lunch/be dtime 15 mL 3 11/08/19 25 Active Sure Comfort Pen Hustler 31G X 8 MM needleIndicati ons:Type 2 diabetes mellitus with other specified complication, with long-term current use of insulin (HCC) 3 times daily 100 Each 3 11/08/19 25 Active fenofibrate (Lofibra) 160 MG tablet Take 1 (one) tablet by mouth once daily 90 tablet 3 01/19/20 25 Active fenofibrate (Lofibra) 160 MG tablet Take 1 (one) tablet by mouth once daily 90 tablet 3 12/01/19 24 025 Discontin ued(Reord er) Active Problems Problem Noted Date Diagnosed Date Stage 3a chronic kidney disease 11/07/2024 Thyroid nodule 05/26/2023 Diabetes mellitus 06/23/2022 Status post catheter ablation of slow pathway SVT (supraventricular tachycardia) 04/24/2019 Essential hypertension 04/24/2019 Encounters Date Type Department Care Team Description 01/17/2025 Refill [facility] - Endocrinology [address] [place] [phone] Joaquina Peterson MD MEDICATION REFILL 01/17/2025 Telephone [facility] - Endocrinology [address] [place] [phone] Joaquina Peterson MD Refill Request 11/10/2024 Telephone [facility] - Endocrinology [address] [place] [phone] Joaquina Peterson MD Rx Formulary/Therapeutic Substitution 11/09/2024 Telephone [facility] - Centralized Scheduling [address] [place] [address] Joaquina Peterson MD Rx Formulary/Therapeutic Substitution 11/07/2024 9:20 AM CDT Office Visit [facility] - Endocrinology [address] [place] [phone] Joaquina Peterson MD Type 2 diabetes mellitus with other specified complication, with long-term current use of insulin (HCC) (Primary Dx); Thyroid nodule; Stage 3a chronic kidney disease (HCC) 11/07/2024 Refill [facility] - Endocrinology [address] [place] [address], [place] [address] Joaquina Peterson MD MEDICATION REFILL 11/07/2024 Results [facility] [address] [place] [address], [place] [address] Joaquina Peterson MD 11/07/2024 Travel from Last 3 Months Immunizations Immunization Administration Dates Next Due Covid Pfizer primary monoval ent 12+ yr 0.3mL Purple [...] on file Legal Sex Female 5:22 PM TOY ELECTRIC TRAIN REPAIRER Gender Identity Not on file Sexual Orientation [...] Description 05/29/2025 3:40 PM CDT Office Visit [facility] - Endocrinology [address] [place] [address], [place] [address] Joaquina Peterson MD [address] [place] [address] [place] [address] Health Maintenance Due Date Last Done Comments [...] AWV CALENDAR YEAR 2024 COVID-19 VACCINE ( - 2024- season) 2024 05/29/2021, 11/18/2020, 04/21/2020, Additional history [...] URINE RANDOM PANEL Routine 04/12/2024 10:33 AM TOY ELECTRIC TRAIN REPAIRER Type 2 diabetes mellitus with other specified complication, with long-term current use of insulin Thyroid nodule Essential hypertension SVT (supraventricular tachycardia) COMPREHENSIVE METABOLIC PANEL Routine 04/12/2024 10:33 AM TOY ELECTRIC TRAIN REPAIRER Type 2 diabetes mellitus with other specified complication, with long-term current use of insulin Thyroid nodule Essential hypertension SVT (supraventricular tachycardia) from Last 3 Months or Most Recently Relevant to Health Maintenance Results * HEMOGLOBIN A1C - POINT OF CARE (AMB) [facility] (11/07/2024 9:05 AM CDT) Hemoglobin A1c POCT 7.5 % [address] BLOOD SPECIMEN / Unknown 11/07/2024 9:05 AM CDT us Joaquina Peterson MD LAB - POINT OF CARE ORDERABLES Final Result [address], [place] [address], [facility] [phone] * (ABNORMAL) MICROALB/CREAT RATIO URINE RANDOM PANEL (04/12/2024 10:33 AM TOY ELECTRIC TRAIN REPAIRER) Creatinine Urine 68.6 Not Estab. mg/dL [facility] INSURANCE BILL Microalbumin Urine 26.1 Not Estab. ug/mL [facility] INSURANCE BILL Microalbumin/Crea tinine Ratio 38(H) 0 - 29 mg/g creat [facility] INSURANCE BILL Comment: Normal: 0 - 29 Moderately increased: 30 - 300 Severely increased: >300 Urine URINE SPECIMEN OBTAINED BY CLEAN CATCH PROCEDURE / Unknown 04/12/2024 10:33 AM TOY ELECTRIC TRAIN REPAIRER 04/12/2024 Narrative [facility] INSURANCE BILL - 04/13/2024 7:09 AM TOY ELECTRIC TRAIN REPAIRER Performed at: 01 - [facility] [address] [place], [place] [id number] Model Technician: López Omalley PhD, Phone: [phone] us Joaquina Peterson MD LAB - URINE CHEMISTRY ORDERABLE S Final Result [facility] INSURANCE BILL [address] [place] [address] * (ABNORMAL) COMPREHENSIVE METABOLIC PANEL (04/12/2024 10:33 AM TOY ELECTRIC TRAIN REPAIRER) Glucose 179(H) 70 - 99 mg/dL [facility] [...] BLOOD SPECIMEN / Unknown 04/12/2024 10:33 AM TOY ELECTRIC TRAIN REPAIRER 04/12/2024 Narrative [facility] INSURANCE BILL - 04/13/2024 7:09 AM TOY ELECTRIC TRAIN REPAIRER Performed at: 01 - [address] [id number] Model Technician: López Omalley PhD, Phone: [phone] us Joaquina Peterson MD LAB - CHEMISTRY ORDERABLES Unique l Result [facility] INSURANCE BILL [address] [place] [address] from Last 3 Months or Most Recently Relevant to Health Maintenance Insurance [facility] MANAGED MEDICARE ADV Care Teams Jig Grinder Relationship Specialty Start Date End Date Liyah Alba APRN-CNP [address] [place] [address] PCP - General Nurse Practitioner 05/14/21 [place] [id number] [phone] Consulting Physician Cardiac Electrophysiology 10/28/19
--- OUTSIDE RECORDS SUMMARY | 2025-01-30 17:00 | XMS_ITS | Clinical Summary ---
Author Organization [facility] Care Team Providers Care Transmission Engineer Name Role Phone Liyah Alba APRN, MAURILIO Primary Care Provider Khalida Servin MD Unavailable Social History Tobacco Use Types Packs/Day Years Used Date Smoking Tobacco: Never Assessed Comments Unknown Sex and Gender Information Value Date Recorded Sex Assigned at Not on file Legal Sex Female 2:33 PM CDT Gender Identity Not on file Sexual Orientation Not on file Plan of Treatment Upcoming Encounters Date Type Department Care Team (Late st Contact Info) Description 02/02/2025 2:00 PM FOOD PACKER Office Visit [facility] [address] [address] Khalida Servin MD [address] [place] [phone] Health Maintenance Due Date Last Done Comments Mammogram 1955 Cologuard 1998 Immunochemical Fecal Occult Blood 1998 Welcome to Medicare (IPPE) [id number] 02/17/2024 DEXA Bone Density 09/10/2024 09/10/2022 SARS-COV-2 Immunization ( season) 2025 01/05/2025, 11/13/2023, 12/16/2022, Additional history exists Colonoscopy 01/24/2029 01/24/2019 Colorectal Cancer Screening 01/24/2029 DTaP/Tdap/Td Immunization Discontinued 01/15/2012 TdaP Immunization Completed 01/15/2012 Zoster Immunization Completed 02/18/2019, 02/17/2019, 12/17/2018 Hepatitis C Virus (HCV) Screening Completed 01/27/2022 Respiratory Syncytial Virus (RSV) Immunization (Adult) Completed 02/06/2023 Influenza Immunization Completed , 11/13/2023, 12/01/2022, Additional history exists Pneumococcal Immunization (50+ years) Completed 01/05/2025, 12/10/2019, 12/17/2018 Hepatitis B Immunization Aged Out No longer eligible based on patient's age to complete this topic Human Papillomavirus (HPV) Immunization (No Doses Required) Completed Meningococcal Immunization (ACWY) Aged Out No longer eligible based on patient's age to complete this topic Rotavirus Immunization Aged Out No lo nger eligible based on patient's age to complete this topic Insurance MEDICARE C [facility] Care Teams Transmission Engineer Relationship Specialty Start Date End Date Liyah Alba, POWER LINEMAN TECHNICIAN, PROGRAM TECHNICIAN [address] [place] [id number] PCP - General Internal Medicine 01/24/25 Khalida Servin MD [address] [place] [phone] Consulting Physician Oncology 01/24/25
--- OUTSIDE RECORDS SUMMARY | 2025-01-30 17:01 | XMS_ITS | Clinical Summary ---
Author Organization [facility] Address [address] [place] [address] Care Team Providers Care Filter Press Tender Head Name Role Phone Sanju Bowles RICHAR Primary Care Provider [phone] Allergies Active Allergy Reactions Criticality Noted Date Comments Seasonal Runny Nose 07/08/2024 Medications acetaminophen 325 MG tablet Take 2 tablets (650 mg total) by mouth every 4 (four) hours as needed for Fever or Pain. 10/04/19 21 Active linaCLOtide (LINZESS) 72 MCG Cap Take 1 capsule (72 mcg total) by mouth daily as needed (Constipation). Active Multiple Vitamins-Minera ls (MULTIVITAL OR) Take 1 tablet by mouth daily. Active cetirizine (ZYRTEC) 10 MG tablet Take 1 tablet (10 mg total) by mouth daily as needed for Allergies. 11/09/19 22 Active Biotin 1000 MCG Tab Take 1,000 mcg by mouth daily. Active aspirin EC (ECOTRIN) 81 MG tablet Take 1 tablet (81 mg total) by mouth daily. Active senna-docusate (SENOKOT-S) 8.6-50 MG tablet Take 1 tablet by mouth daily as needed for Constipation. Active fenofibrate 160 MG tabletIndicatio ns:Dyslipidemia TAKE 1 TABLET(160 MG) BY MOUTH DAILY 90 tablet 02/08/20 24 Active LANTUS SOLOSTAR 100 UNIT/ML injection (PEN)Indication s:Type 2 diabetes mellitus with diabetic polyneuropathy, with long-term current use of insulin ([facility]) Inject 40 Units into the skin nightly at bedtime. 40 units HS, patient trying to wean off Lantus 3 mL 3 03/07/19 25 2025 Active Additional Information Patient taking differently: 10 UnitsSubcutaneous Nightly at bedtime,(No instructions reported), Reported on 12/21/2024 tretinoin (RETIN-A) 0.05 % cream Apply topically nightly at bedtime. 05/06/19 25 Active ibuprofen (MOTRIN) 800 MG tabletIndicatio ns:Osteoarthros is Take 1 tablet (800 mg total) by mouth every 8 (eight) hours as needed for Pain. 270 tablet 1 06/01/19 25 Active NOVOLOG FLEXPEN 100 UNIT/ML injection (PEN)Indication s:Type 2 diabetes mellitus with diabetic polyneuropathy, with long-term current use of insulin ([facility]) 10 to 15 units TID AC + SSI 42 mL 3 06/02/19 25 Active Additional Information Patient taking differently: 4-5 Units Subcutaneous 3 times daily before meals, Per sliding scale; pt states she will take this if blood glucose is greater than 150 before meals., Reported on 12/21/2024 traMADol (ULTRAM) 50 MG tabletIndicatio ns:Chronic Pain Take 1 tablet (50 mg total) by mouth every 8 (eight) hours. Indications: Chronic Pain 270 tablet 06/04/19 25 Active empagliflozin (JARDIANCE) 25 MG tabletIndicatio ns:Type 2 diabetes mellitus with diabetic polyneuropathy, with long-term current use of insulin ([facility]) Take 1 tablet (25 mg total) by mouth daily. 90 tablet 1 06/14/19 25 Active lidocaine (LIDO NGOZI) 4 % patch Place 1 patch onto the skin daily. Remove & Discard patch within 12 hours or as directed by MD 30 patch 07/20/19 25 Active diclofenac sodium (VOLTAREN) 1 % gel Apply 4 g topically 4 (four) times daily. 100 g 07/20/19 25 Active gabapentin (NEURONTIN) 300 MG capsuleIndicati ons:Neuropathy Take 1 capsule (300 mg total) by mouth 3 (three) times daily. 90 capsule 1 07/27/19 25 Active Additional Information Patient taking differently:300 mg OralEvery morning, Reported on 12/21/2024 doxycycline hyclate (VIBRAMYCIN) 50 MG capsule Take 1 capsule (50 mg total) by mouth daily. 08/13/19 Active glucosamine-cho ndroitin 500-400 MG CapIndications: Polyarthralgia Take 1 capsule by mouth daily. 90 capsule 3 08/31/19 Active Additional Information Patient not taking.Reason: Other (pt states no longer is needed), Reported on 12/21/2024 Telmisartan-HCT Z 80-25 MG TabIndications: Essential hypertension Take 1 tablet by mouth daily. 90 tablet 1 09/03/19 Active Continuous Glucose Sensor (FREESTYLE JHON 3 PLUS SENSOR) Misc 07/27/19 Active OZEMPIC 1 mg/dose injection (PEN) Inject 1 mg into the skin once a week. 08/16/19 Active Vitamin D3 125 mcg Tab Take 1 tablet (125 mcg total) by mouth daily. Active gabapentin (NEURONTIN) 300 MG capsule Take 1 capsule (300 mg total) by mouth daily as needed (neuropathy). Additional dose if needed Active fish oil (OMEGA-3 FATTY ACID) 1000 MG Cap capsule Take 1 capsule (1,000 mg total) by mouth daily. Active calcium-magnesi um-zinc 333-133-5 MG Tab Take 1 tablet by mouth daily. Active ferrous sulfate, 65 mg elemental, 325 (65 FE) MG tablet Take 1 tablet (325 mg total) by mouth daily with breakfast. Active NON FORMULARY Take 1 chewable tablet by mouth daily. Thyroid Gummies by Vitamatic with Iodine and Kelp Acti ve Glucose Blood (FREESTYLE LITE) test stripIndication s:Type 2 diabetes mellitus with diabetic polyneuropathy, with long-term current use of insulin (CMS/HCC HHS/HCC) Use one strip to test blood sugar morning noon and night 100 strip 3 12/15/19 Active ertapenem 1,000 mg in sodium chloride 0.9 % SOLN 50 mL Inject 1,000 mg into the vein daily. 12/09/192024 Active Problems Problem Noted Date Diagnosed Date Liver abscess 12/21/2024 Myofascial pain 06/07/2024 Stage 3a chronic kidney disease 06/12/2023 Longstanding persistent atrial fibrillation 12/0 09/2022 Carpal tunnel syndrome of left wrist 11/15/2021 Left wrist pain 10/30/2021 Numbness and tingling in left hand 10/30/2021 Dermatitis of both ear canals 10/30/2021 Itching of ear 10/30/2021 Right upper quadrant abdominal mass 07/16/2021 Leg cramps 06/27/2021 Thyroid nodule 12/19/2020 Goiter 11/25/2020 Ahston's cyst of knee, right 05/17/2020 Status post catheter ablation of slow pathway Anemia 07/21/2019 Chronic constipation 01/19/2019 Microalbuminuria 01/19/2019 Nonproliferative diabetic retinopathy 12/24/2018 Menopause 12/16/2018 Diabetic peripheral neuropathy 12/16/2018 Diverticulosis of colon without diverticulitis 1 History of malignant neoplasm of breast 12/17/19 19 Kidney stone 12/16/2018 Mixed hyperlipidemia 12/16/2018 Osteoarthrosis 12/16/2018 Overweight with body mass in dex (BMI) of 26 to 26.9 in adult 12/16/2018 Primary hypertension 06/27/2015 JUAN ALBERTO (obstructive sleep apnea) 06/25/2015 Ovarian retention cyst 02/12/2012 Type 2 diabetes mellitus 06/13/2010 Resolved Problems Problem Noted Date Diagnosed Date Resolved Date Chronic neck pain 09/15/2024 12/21/2024 Pericolonic abscess 09/24/2023 09/16/19 25 Hearing loss of left ear due to cerumen impaction 10/30/2021 06/12/2023 Acute cystitis without hematuria 07/16/2021 06/12/2023 Hypercalcemia 08/11/2020 07/30/2021 SVT (supraventricular tachycardia) 04/24/2019 04/25/2021 Bilateral impacted cerumen 12/13/2018 0 04/25/2021 Dyslipidemia 04/27/2018 04/25/2021 Intractable migraine without status migrainosus 04/27/2018 06/12/2023 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 04/27/2018 04/25/2021 Mass of lower extremity 05/02/2016 03 Breast pain 01/07/2016 04/19/2021 Acne vulgaris 10/17/2015 04/25/2021 Obesity 06/27/2015 04/19/2021 Encounter for preventive health examination 06/18/2015 08/13/2020 Pseudofolliculitis barbae 12/15/2014 Cervicalgia 08/16/2014 04/19/2021 Pain in shoulder 06/13/2014 04/25/2021 Malignant neoplasm of breast 02/22/2014 04/19/2021 Incomplete uterovaginal prolapse 02/12/2012 04/19/2021 Hay fever 03/10/2011 04/19/2021 Otitis, externa, infective 03/10/2011 0 04/25/2021 Encounters Date Type Department Care Team Description 01/20/2025 Telephone [facility] [address] [address] Sanju Bowles FNP Lab Results 01/16/2025 Telephone [facility] Internal [address] [address] Sanju Bowles FNP Medication Request 01/06/2025 Scan [facility] SRVCS Scanned, Doc Med Group CT (SCAN); Lab (SCAN) 01/05/2025 Scan [facility] INFO SRVCS Scanned, Doc [facility] Lab (SCAN) 12/28/2024 Scan [facility] INFO SRVCS Scanned, Doc [facility] Lab (SCAN) 12/28/2024 Patient Outreach [facility] Internal [address] [address] Zohreh Talavera RN Hospital Follow Up 12/21/2024 11:20 AM [employer] SUPERINTENDENT Office Visit [facility] [address] [address] Sanju Bowles FNP TCM ([facility] 11/27-12/08/2024 ; liver abscess) 12/21/2024 Scan [facility] INFO SRVCS Scanned, Doc [facility] Lab (SCAN) 12/21/2024 Travel 12/20/2024 Scan [facility] INFO SRVCS Scanned, Doc Med Group 12/20/2024 Patient Outreach [facility] [address] [address] Zohreh Talavera RN Hospital Follow Up 12/14/2024 Scan [facility] INFO SRVCS Scanned, Doc [facility] Lab (SCAN) 12/13/2024 Telephone [facility] [address] [address] Sanju Bowles FNP Medication Request 12/12/2024 Scan [facility] INFO [facility]VCS Scanned, Doc Med Group 12/12/2024 Telephone [facility] [address] [address] Sanju Bowles FNP Information 12/12/2024 [employer] [facility] [address] [place] [address] [facility] [place] Provider [facility] Nurse Net Developer Contract outreach 12/09/2024 Patient Outreach [facility] [address] [address] Zohreh Talavera RN TCM ([facility] d/c 12/08/24) 12/09/2024 Patient Outreach [facility] Internal [address] [address] Zohreh Talavera RN Hospital Follow Up 12/08/[address] [address] Sanju Bowles FNP Information 11/29/2024 Patient Outreach [facility] Internal [address] [address] Zohreh Talavera RN Hospital Follow Up ([facility] admission 11/27/24) 11/26/2024 5:33 PM CDT - 11/27/2024 1:45 AM CDT Emergency [facility] [place] [address] Lefty Vargas, DO Hyperglycemia Discharge Disposition: Transfer to Acute Care Hospital 11/26/2024 Travel 11/04/2024 1:46 PM CDT - 11/04/2024 11:59 PM CDT Hospital Encounter [facility] [address] [place] [address] Michael Paiz MD Discharge Disposition: Home or Self Care (Routine Discharge) 11/04/2024 Travel from Last 3 Months Immunizations Immunization Administration Dates Next Due Arexvy Respiratory Syncytial Virus (RSV, adjuvanted) 0.5 mL, PF 02/06/2023 COVID-19 Vaccine (Generic) 04/21/2020,03/31/2020 Fluzone High Dose (IIV, triv alent, 0.5mL) 12/21/2024,11/13/2023 Fluzone High Dose - >Age 65 (Prefilled Syringe) 12/01/2022,11/08/2020,12/10/2019,2018 Influenza (Generic) 01/15/2012, 0,02/02/2007,2004,12/21/2002,02/03/2002,01/16/2001,1 Influenza Adult (Generic) 11/10/2021,12/23/2016 PFIZER COVID-19 (JAMES CAP), MRNA, LNP-S, PF, 30 MCG/0.3 ML LEXY-SUCROSE, IM 05/29/2021 PFIZER COVID-19 (ORIGINAL FORMULATION, PURPLE CAP) mRNA, LNP-S, PF, 30 MCG/0.3 ML DOSE 11/18/2020 Pneumococcal (Pneumovax 23) 12/10/2019 Pneumococcal (Prevnar 13) 12/17/2018 Shingrix 02/18/2019,02/17/2019,12/17/2018 Tdap (Generic) 01/15/2012 Family History Medical History Relation Comments Colon Cancer Brother No Known Problems Father Aneurysm Mother Arthritis Mother Diabetes Mother Hypertension Mother Vision loss Mother Stroke Sister Alcohol Abuse Son 1 Oldest son Diabetes Son 1 Alcohol Abuse Son 2 Younger son Depression Son 2 Relation Status Comments Brother Father Mother Sister Son 1 Alive Son 2 Alive Social History Tobacco Use Types Packs/Day Years Used Date Smoking Tobacco: Never Smokeless Tobacco: Never Tobacco Cessation:Counseling Given: No Comments:Never Smoked Alcohol Use Standard Drinks/Week Comments Not Currently 2.7 (1 standard drink = 0.6 oz p ure alcohol) Socially [facility] Utilities Answer Date Recorded In the past 12 months has th e electric, gas, oil, or water company threatened to shut off services in your home? No 09/24/2023 Humiliation, Afraid, Rape, and Kick questionnair e Answer Date Recorded Within the last year, have y ou been afraid of your partner or ex-partner? No 09/24/2023 Within the last year, have y ou been humiliated or emotionally abused in other ways by your partner or ex-partner? No Within the last year, have y ou been kicked, hit, slapped, or otherwise physically hurt by your partner or ex-partner? No 09/24/2023 Within the last year, have y ou been raped or forced to have any kind of sexual activity by your partner or ex-partner? No 09/24/2023 Overall Financial Resource Strain (CARDIA) Answe r Date Recorded How hard is it for you to pa y for the very basics like food, housing, medical care, and heating? Not hard at all 09/24/2023 PHQ-2 Answer Date Recorded Patient Health Questionnaire-2 Score 0 07/19/2024 Hunger Vital Sign Answer Date Recorded Within the past 12 months, y ou worried that your food would run out before you got the money to buy more. Never true 09/24/19 24 Within the past 12 months, t he food you bought just didn't last and you didn't have money to get more. Never true 09/24/2023 PRAPARE - Transportation Answer Date Re corded In the past 12 months, has l ack of transportation kept you from medical appointments or from getting medications? No 09/2023 In the past 12 months, has l ack of transportation kept you from meetings, work, or from getting things needed for daily living? No 09/24/2023 Housing Stability Vital Sign Answer Ankush e Recorded In the last 12 months, was t here a time when you were not able to pay the mortgage or rent on time? No 09/24/2023 In the past 12 months, how m any times have you moved where you were living? 0 09/24/2023 At any time in the past 12 m [place], were you homeless or living in a custodial (including now)? No 09/24/2023 Comments No Sex and Gender Information Value Date Recorded Sex Assigned at Female 05/18/2024 7:46 PM CDT Legal Sex Female 9:59 PM CDT Gender Identity Female 01/30/2021 12:14 PM [employer] SUPERINTENDENT Sexual Orientation Straight 01/30/2021 12 :14 PM [employer] SUPERINTENDENT Last Filed Vital Signs Vital Sign Reading Time Taken Comments Blood Pressure 136/54 12/21/2024 11:17 AM [employer] SUPERINTENDENT Pulse 84 12/21/2024 11:17 AM [employer] SUPERINTENDENT Temperature 36.5 C (97.7 F) 12/21/2024 11:17 AM [employer] SUPERINTENDENT Respiratory Rate 17 11/27/2024 1:00 AM CDT Oxygen Saturation 98% 12/21/2024 11:17 AM [employer] SUPERINTENDENT Inhaled Oxygen Concentration - - Weight 68.3 kg (150 lb 9.6 oz) 12/21/2024 11:17 AM [employer] SUPERINTENDENT Height 162.6 cm (5' 4) 12/21/2024 11:17 AM [employer] SUPERINTENDENT Body Mass Index 25.85 12/21/2024 11:17 AM [employer] SUPERINTENDENT Plan of Treatment Health Maintenance Due Date Last Done Comments Kidney Health Evaluation 1955 Hepatitis A Vaccines (1 of 2 - Risk 2-dose series) 1972 Annual Medicare Wellness Visit 2018 COVID-19 Vaccine ( season) 2024 11/13/2023, 12/16/2022, 11/10/2021, Additional history exists Lipid Panel 04/12/2025 04/12/2024, 11/17, 01/20/2023, Additional history exists DTaP, Tdap and Td Vaccines (2 - Td or Tdap) 05/27/2025 01/15/2012 Postponed from 01/14/2022 (Going to Outside Clinic) Hemoglobin A1C 05/28/2025 11/27/2024, 10/18, 07/04/2024, Additional history exists Diabetes: Retinopathy Eye Exam 06/30/2025 07/01/2023, 04/18/2022 Mammogram Screening 04/19/2026 04/19/2024, 06/26/2023, 05/22/2021, Additional history exists Colorectal Cancer Screening Colonoscopy (10 Years) 01/24/2029 01/24/2019 Zoster Vaccines Completed 02/18/2019, 03/2019, 12/17/2018 Pneumococcal Vaccine: 50+ Years Completed 12/10/2019, 12/17/2018 Hepatitis C Completed 01/27/2022 Dexa Scan (General) Completed 09/10/2022 RSV Immunization or 60+ Years Completed 02/06/2023 PHQ-2 (Physician [place]) Completed 07/19/2024 Influenza Adult Completed 12/21/2024, 10/18, 12/01/2022, Additional history exists Meningococcal B Vaccine Aged Out No l onger eligible based on patient's age to complete this topic Meningococcal Vaccine Aged Out No tricia miguelangel eligible based on patient's age to complete this topic RSV Immunizations Under 20 Months Aged Out No longer eligible based on patient's age to complete this topic Goals Goal Patient Goal Type Associated Problems Recent Progress Patient-Stated? Author Health - patient able to perform ADLs independently Lifestyle No Lobo Barreto i, RN Establish Regular Follow-Ups with PCP Lifestyle No Adryan Talavera ra, RN Monitor - verbalizes recognition of s/s wound infections Lifestyle No Zohreh Talavera RN Medications - able to self-administer medications Lifestyle No Zohreh Talavera, RN Note: Pt verbalizes understanding on self administration of IV abx Procedures Procedure Name Priority Date/Time Associated Diagnosis Comments CT GENERIC 01/06/2025 OUTSIDE LAB (SCAN ORDER) 01/06/2025 OUTSIDE LAB (SCAN ORDER) 01/05/2025 OUTSIDE LAB (SCAN ORDER) 01/05/2025 OUTSIDE LAB (SCAN ORDER) 12/28/2024 OUTSIDE LAB (SCAN ORDER) 12/21/2024 OUTSIDE LAB (SCAN ORDER) 12/14/2024 HC TROPONIN QN STAT 11/26/2024 9:36 PM CDT HC URINALYSIS AUTO W/MICRO STAT 11/26/2024 7:30 PM CDT POCT GLUCOSE - DOCKED DEVICE Routine 11/26/2024 7:24 PM CDT BLOOD GAS, VENOUS STAT 11/26/2024 7:1 0 PM CDT CTA CHEST+CT ABD+PEL W CON STAT 11/26/2024 7:04 PM CDT HC QL INFLUENZA A/B STAT 11/26/2024 6 :04 PM CDT HC BLOOD CULTURE STAT 11/26/2024 6:03 PM CDT HC BLOOD CULTURE STAT 11/26/2024 6:03 PM CDT XR CHEST PORTABLE STAT 11/26/2024 6:0 1 PM CDT CORONAVIRUS (COVID 19) STAT 5:54 PM CDT ECG 12-LEAD Routine 11/26/2024 5:52 PM CDT LACTIC ACID W REFLEX (SEPSIS) STAT 11/26/2024 5:41 PM CDT HC MAGNESIUM STAT 11/26/2024 5:41 PM CDT HC TROPONIN QN STAT 11/26/2024 5:41 PM CDT BETA-HYDROXYBUTYRATE STAT 11/26/2024 5:41 PM CDT HC COMPREHENSIVE METABOLIC PANEL STAT 11/26/2024 5:41 PM CDT HC CBC AUTO W/AUTO DIFF STAT 11/26/2024 5:41 PM CDT POCT GLUCOSE - DOCKED DEVICE Routine 11/26/2024 5:[address] ABD+PEL W CON Routine 11/04/2024 2:13 PM CDT Right upper quadrant abdominal swelling, mass and lump HC CREATININE Routine 11/04/2024 2:08 PM CDT DIABETIC RETINOPATHY EXAM (NEGATIVE)(SCAN ORDER) Routine 07/01/2023 MG SCREENING W ALEJANDRA RT DIGI Routine 06/26/2023 2:39 PM CDT Encounter for screening mammogram for malignant neoplasm of breast HEMOGLOBIN, GLYCOSYLATED 05/11/2023 1:30 PM CDT LIPID PANEL 01/20/2023 12:55 PM [employer] SUPERINTENDENT BONE DENSITY/DEXA Routine 09/10/2022 2:3 4 PM CDT Menopause HEPATITIS C ANTIBODY Routine 01/27/2022 12:59 PM [employer] SUPERINTENDENT Encounter for hepatitis C screening test for low risk patient COLONOSCOPY GENERIC (SCAN ORDER) Routine 01/24/2019 from Last 3 Months or Most Recently Relevant to Health Maintenance Results * CT GENERIC (01/06/2025) Anatomical Region Laterality Modality Other 01/06/2025 SERVICEINFINITY Scanned SCANNING Final Resu lt * OUTSIDE LAB (SCAN ORDER) (01/06/2025) Only the most recent of6 resultswithin the time period is included. 01/06/2025 SERVICEINFINITY Scanned SCANNING Final Resu lt * TROPONIN, QUANT (11/26/2024 9:36 PM CDT) Only the most recent of2 resultswithin the time period is included. TROPONIN I HIGH SENSITIVITY 13 <54 ng/L 11/26/2024 10:34 PM CDT [facility] Comment: HIGH DOSES OF BIOTIN, TROPONIN-SPECIFIC AUTOANTIBODIES, AND ANTIBODY THERAPY CONTAINING HAMA MAY INTERFERE WITH THIS TEST RESULT. CORRELATION TO CLINICAL HISTORY AND PRESENTATION RECOMMENDED. 11/26/2024 9:36 PM CDT us Lefty Vargas DO LABORATORY Final Result [facility] [address] [place] [address], [place] [phone] * (ABNORMAL) Urinalysis, Auto, Complete (11/26/2024 7:30 PM CDT) SPECIMEN TYPE URINE, UNSPECIFIED 11/26/2024 7:20 PM CDT [facility] COLOR (U) LIGHT YELLOW 11/26/2024 7:43 PM CDT [facility] TRANSPARENCY CLEAR 11/26/2024 7:43 PM CDT [facility] SPECIFIC GRAVITY (U) 1.025 1.001 - 1.030 11/26/2024 7:43 PM CDT [facility] U PH 5.5 5.0 - 9.0 11/26/2024 7:43 PM CDT [facility] LEUKOCYTES (U) NEGATIVE NEGATIVE 11/26/2024 7:43 PM CDT [facility] NITRITES NEGATIVE NEGATIVE 11/26/2024 7:43 PM CDT [facility] PROTEIN RANDOM (U) 10 <30 MG/DL 11/26/2024 7:43 PM CDT [facility] GLUCOSE (U) >1000(A) NORMAL MG/DL 11/26/2024 7:43 PM CDT [facility] KETONES MG/DL (U) 10(A) NEGATIVE MG/DL 11/26/2024 7:43 PM CDT [facility] Comment: Successful Call: JESSICA called 11/26/2024 07:44 PM to EMERGENCY ROOM ([id number]/ANGELO SIGALA) by [id number]. UROBILINOGEN NORMAL NORMAL MG/DL 11/26/2024 7:43 PM CDT [facility] BILIRUBIN (U) NEGATIVE NEGATIVE MG/DL 11/26/2024 7:43 PM CDT [facility] BLOOD (U) NEGATIVE NEGATIVE 11/26/2024 7:43 PM CDT [facility] MUCUS RARE /LPF 11/26/2024 7:43 PM CDT [facility] RBC/HPF 1 <6 /HPF 11/26/2024 7:43 PM CDT [facility] SQUAMOUS EPITHELIALS RARE /HPF 11/26/2024 7:43 PM CDT [facility] URINE SPECIMEN / Unknown 11/26/2024 7:30 PM CDT us Lefty Vargas DO URINE ORDERABLES Final Result [facility] [address] [place] [address], [place] [phone] * (ABNORMAL) POCT glucose (11/26/2024 7:24 PM CDT) Only the most recent of2 resultswithin the time period is included. GLUCOSE POC 228(H) 70 - 99 mg/dL 11/26/2024 7:28 PM CDT [facility] 11/26/2024 7:24 PM CDT Lefty Vargas DO POCT ORDERABLES - DEVICE Final Result [facility] [address] [place] [address], [place] [phone] * (ABNORMAL) Blood gas, venous (11/26/2024 7:10 PM CDT) PH VENOUS 7.47(H) 7.32 - 7.43 11/26/2024 7:16 PM CDT [facility] PCO2 VENOUS 35.0 MMHG 11/26/2024 7:16 PM CDT [facility] Comment:NO REFERENCE RANGE H BEEN ESTABLISHED PO2 VENOUS 48.0 MM HG 11/26/2024 7:16 PM CDT [facility] Comment:NO REFERENCE RANGE H BEEN ESTABLISHED TOTAL CO2 VENOUS 26.6(H) 22.0 - 26.0 MMOL/L 11/26/2024 7:16 PM CDT [facility] VENOUS BASE EXCESS 2.1 MMOL/L 11/26/2024 7:16 PM CDT [facility] Comment:NO REFERENCE RANGE H BEEN ESTABLISHED O2 SAT VENOUS 86 % 11/26/2024 7:16 PM CDT [facility] Comment:NO REFERENCE RANGE H BEEN ESTABLISHED BICARB VENOUS 25.5 22.0 - 29.0 MMOL/L 11/26/2024 7:16 PM CDT [facility] O2 ADMIN VENOUS 21 7:14 PM CDT [facility] 11/26/2024 7:10 PM CDT Lefty Vargas DO LABORATORY Final Result [facility] [address] [place] [address], [place] [phone] * CTA CHEST+CT ABD+PEL W CON (11/26/2024 7:04 PM CDT) Anatomical Region Laterality Modality Abdomen, Chest Computed Tomogra phy 11/26/2024 7:44 PM CDT Impressions 11/26/2024 8:05 PM CDT IMPRESSION: 1. No evidence of pulmonary embolism. 2. Multiseptated fluid density hepatic lesion 8.7 x 4.7 cm with differential considerations being a hepatic abscess and less likely metastasis. 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 3. Polypoid sigmoid colonic lesion 2.5 cm versus large colonic diverticulum. GI consultation is recommended. 4. Colonic diverticulosis. 5. Nonspecific soft tissue stranding in the right anterior abdominal wall superiorly, also seen on prior. 6. Left thyroid nodule, 11 mm. Given size greater than 1 cm, correlation with outpatient ultrasound is recommended. 7. Additional findings as above. Impression [address] Lefty Vargas by Dr. Barclay via [facility] at 11/26/2024 8:04 PM (central time). Referred By: Interpreted By: Robert Barclay MD, 11/26/2024 7:44 PM Narrative 11/26/2024 8:05 PM CDT [address] [address] EXAMINATION: CTA CHEST WITH CONTRAST, CT ABDOMEN PELVIS WITH CONTRAST EXAM DATE/TIME: 11/26/2024 6:35 PM REASON FOR EXAM: fever, tachycardia and cough COMPARISON: CT abdomen pelvis 11/04/2024, chest CTA 09/20/2021 TECHNIQUE: Axial CT images of the chest are obtained following uneventful intravenous administration of 100 cc [id number]. [address] abdomen pelvis is also obtained following intravenous contrast. Subsequent coronal and sagittal reformatted sequences are obtained for evaluation. In addition 3-D rotational MIP imaging of the thoracic arterial vasculature is created on a separate workstation for review. A dose lowering technique was used for this procedure, which may include, but is not limited to, dose reduction technique, automated exposure control, iterative reconstruction, ALARA (As Low As Reasonably Achievable), or Image Gently techniques. FINDINGS: Chest: No evidence of pulmonary embolism. Heart: No cardiomegaly. No pericardial effusion. Coronary artery calcification. Mediastinal/Lymph nodes: No mass or lymphadenopathy. 11 mm left thyroid nodule. Lungs/Pleura: No pulmonary mass or airspace consolidation. No pleural effusion. No pneumothorax. Musculoskeletal: No acute osseous findings. Abdomen/pelvis: Liver/biliary: The liver is normal in size and smooth in surface contour. There is a multiseptated fluid density hepatic lesion measuring 8.7 x 4.7 cm in axial dimension. 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 Gallbladder is not definitively seen. No biliary dilatation is seen. Pancreas/adrenals/spleen: Unremarkable. Genitourinary: No hydronephrosis is seen. No renal mass lesion is seen. Simple small right renal cysts for which no further follow-up is recommended. Urinary bladder is unremarkable. The uterus is not seen. Bowel: No bowel obstruction or inflammatory change is seen. The appendix is not visualized without evidence of appendicitis. Colonic diverticulosis. There is a 2.5 cm polypoid sigmoid colonic lesion versus large colonic diverticulum (axial image 107). Peritoneum: No free air or free fluid is seen. Lymph nodes: No lymphadenopathy is seen. Musculoskeletal: No acute osseous findings. Soft tissue stranding in the right anterior abdominal wall superiorly. Procedure Note Robert Barclay MD - 11/26/[address] [address] EXAMINATION: CTA CHEST WITH CONTRAST, CT ABDOMEN PELVIS WITH CONTRAST EXAM DATE/TIME: 11/26/2024 6:35 PM REASON FOR EXAM: fever, tachycardia and cough COMPARISON: CT abdomen pelvis 11/04/2024, chest CTA 09/20/2021 TECHNIQUE: Axial CT images of the chest are obtained following uneventfulintravenous administration of 100 cc Isovue-370. CT abdomen pelvis is alsoobtained following intravenous contrast. Subsequent coronal and sagittalreformatted sequences are obtained for evaluation. In addition 3-Drotational MIP imaging of the thoracic arterial vasculature is created shreya separate workstation for review. A dose lowering technique was used forthis procedure, which may include, but is not limited to, dose reductiontechnique, automated exposure control, iterative reconstruction, ALARA (AsLow As Reasonably Achievable), or Image Gently techniques. FINDINGS: Chest: No evidence of pulmonary embolism. Heart: No cardiomegaly. No pericardial effusion. Coronary arterycalcification. Mediastinal/Lymph nodes: No mass or lymphadenopathy. 11 mm left thyroidnodule. Lungs/Pleura: No pulmonary mass or airspace consolidation. No pleuraleffusion. No pneumothorax. Musculoskeletal: No acute osseous findings. Abdomen/pelvis: Liver/biliary: The liver is normal in size and smooth in surface contour.There is a multiseptated fluid density hepatic lesion measuring 8.7 x 4.7cm in axial dimension. 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 Gallbladder is not definitively seen. No biliary dilatation isseen. Pancreas/adrenals/spleen: Unremarkable. Genitourinary: No hydronephrosis is seen. No renal mass lesion is seen.Simple small right renal cysts for which no further follow-up isrecommended. Urinary bladder is unremarkable. The uterus is not seen. Bowel: No bowel obstruction or inflammatory change is seen. The appendixis not visualized without evidence of appendicitis. Colonicdiverticulosis. There is a 2.5 cm polypoid sigmoid colonic lesion versuslarge colonic diverticulum (axial image 107). Peritoneum: No free air or free fluid is seen. Lymph nodes: No lymphadenopathy is seen. Musculoskeletal: No acute osseous findings. Soft tissue stranding in theright anterior abdominal wall superiorly. IMPRESSION: 1. No evidence of pulmonary embolism. 2. Multiseptated fluid density hepatic lesion 8.7 x 4.7 cm withdifferential considerations being a hepatic abscess and less likelymetastasis. 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 3. Polypoid sigmoid colonic lesion 2.5 cm versus large colonicdiverticulum. GI consultation is recommended. 4. Colonic diverticulosis. 5. Nonspecific soft tissue stranding in the right anterior abdominal wallsuperiorly, also seen on prior. 6. Left thyroid nodule, 11 mm. Given size greater than 1 cm, correlationwith outpatient ultrasound is recommended. 7. Additional findings as above. Impression [address] Lefty Vargas by Dr. Barclay via [facility] 11/26/2024 8:04 PM (central time). Referred By: Interpreted By: Robert Barclay MD, 11/26/2024 7:44 PM us Lefty Vargas DO CT Final Result * INFLUENZA A & B (11/26/2024 6:04 PM CDT) SPECIMEN TYPE NASAL 11/26/2024 6:18 PM CDT [facility] INFLUENZA A NEGATIVE NEGATIVE 11/26/2024 6:40 PM CDT [facility] INFLUENZA B NEGATIVE NEGATIVE 11/26/2024 6:40 PM CDT [facility] Comment: Interpretation: Negative for Influenza A and B. A negative result does not exclude influenza virus infection. If influenza is circulating in your community, a diagnosis of influenza should be considered based on a patient's clinical presentation and empiric antiviral treatment should be considered, if indicated. If more conclusive testing is needed for hospitalized inpatients, follow-up confirmatory testing with RT-PCR requires a separate order. NASOPHARYNGEAL SWAB / Unknown 11/26/2024 6:04 PM CDT Lefty Vargas DO MICROBIOLOGY - GENERAL ORDERAB LES Final Result [facility] [address] [place] [address], * CULTURE, BACTERIA, BLOOD (11/26/2024 6:03 PM CDT) Only the most recent of2 resultswithin the time period is included. SPEC DESCRIPTION BLOOD 11/26/2024 5:56 PM CDT [facility] SPECIAL REQUESTS NO SPECIAL REQUEST 11/26/2024 5:56 PM CDT [facility] CULTURE RESULT NO GROWTH 5 DAYS 12/01/2024 6:34 PM CDT [facility] BLOOD SPECIMEN OBTAINED FOR BLOOD CULTURE / Unknown 11/26/2024 6:03 PM CDT 11/26/2024 6:19 PM CDT us Lefty Vargas DO MICROBIOLOGY - GENERAL ORDERAB LES Final Result [facility] [address] [place] [address], [place] [phone] * XR CHEST PORTABLE (11/26/2024 6:01 PM CDT) Anatomical Region Laterality Modality Chest Radiographic Nina ging 11/26/2024 7:45 PM CDT Impressions 11/26/2024 7:51 PM CDT IMPRESSION: There are no acute cardiopulmonary findings. The attending radiologist has reviewed the image(s) and agrees with the content of this report. Ordered By: MIKAYLA FUENTES Interpreted By: Tari Fernando MD, 11/26/2024 7:45 PM Narrative 11/26/2024 7:51 PM CDT [address] [address] Examination: Chest x-ray 1 view Exam time: 11/26/2024 5:43 PM Clinical history: Chills. Comparison: 05/18/2024 CXR Technique: Single AP upright view was obtained. Findings: Monitoring device artifact. Left humeral head surgical fixation thread. Surgical clips seen left lower chest/breast. The cardiomediastinal silhouette appears unremarkable and the heart size is within normal parameters. There is normal distribution of the pulmonary vasculature, with prominent right lower lung vascular comparable to comparison. No parenchymal consolidations are identified. There are no pleural effusions. There is no pneumothorax. No acute osseous abnormality is identified. Procedure Note Jesús Flynn MD - 11/26/[address] [address] Examination: Chest x-ray 1 view Exam time: 11/26/2024 5:43 PM Clinical history: Chills. Comparison: 05/18/2024 CXR Technique: Single AP upright view was obtained. Findings: Monitoring device artifact. Left humeral head surgical fixation thread.Surgical clips seen left lower chest/breast. The cardiomediastinal silhouette appears unremarkable and the heart sizeis within normal parameters. There is normal distribution of the pulmonaryvasculature, with prominent right lower lung vascular comparable tocomparison. No parenchymal consolidations are identified. There are nopleural effusions. There is no pneumothorax. No acute osseous abnormalityis identified. IMPRESSION: There are no acute cardiopulmonary findings. The attending radiologist has reviewed the image(s) and agrees with thecontent of this report. Ordered By: MIKAYLA FUENTES Interpreted By: Tari Fernando MD, 11/26/2024 7:45 PM Mikayla VENEGAS GENERAL IMAG[facility] Final Result * CORONAVIRUS (COVID 19) (11/26/2024 5:54 PM CDT) CORONAVIRUS SARS COV 2 RNA NEGATIVE NEGATIVE 11/26/2024 6:17 PM CDT [facility] Comment: NEGATIVE RESULTS DO NOT RULE OUT COVID 19 AND SHOULD NOT BE USED THE SOLE BASIS FOR TREATMENT OR PATIENT MANAGEMENT DECISIONS, INCLUDING INFECTION CONTROL DECISIONS. NEGATIVE RESULTS SHOULD BE CONSIDERED IN THE CONTEXT OF A PATIENT'S RECENT EXPOSURES, HISTORY AND THE PRESENCE OF CLINICAL SIGNS AND SYMPTOMS CONSISTENT WITH COVID 19. THE ID NOW COVID-19 2.0 TEST HAS BEEN AUTHORIZED BY THE FDA UNDER EAU FOR USE BY AUTHORIZED LABORATORIES. PERFORMED BY NUCLEIC ACID AMPLIFICATION FOR MOLECULAR QUALITATIVE DETECTION OF SARS-COV-2. SPECIMEN TYPE NASAL 11/26/2024 5:54 PM CDT [facility] NASAL STRUCTURE / Unknown 11/26/2024 5:54 PM CDT Mikayla VENEGAS MICROBIOLOGY - GENERAL ORDER MILV[place] Final Result [facility] [address] [place] [address], * ECG 12 lead (11/26/2024 5:52 PM CDT) 11/26/2024 5:52 PM CDT Narrative [facility] - 11/26/2024 7:04 PM CDT [address] Test Date: 2024-11-26 Pat Name: RANI RYAN Department: 41 Room: Gender: Female Launch Manager: [id number] : 1955 Requested By: MIKAYLA FUENTES Order Number: [id number] Reading MD: Srinath Rush Measurements Intervals [place] Rate: 107 P: 41 [place]: 148 QRS: 31 QRSD: 73 T: 33 QT: 297 QTc: 398 Interpretive Statements SINUS TACHYCARDIA POSSIBLE LEFT ATRIAL ENLARGEMENT [-0.1mV P-WAVE IN V1/V2] ABNORMAL RHYTHM ECG Compared to ECG 07/20/2023 17:30:19 Sinus rhythm no longer present T-wave abnormality no longer present Procedure Note Srinath Rush MD - 11/26/[address] Test Date: 2024-11-26 Pat Name: RANI RYAN Department: 41 Room: Gender: Female Launch Manager: [id number] : 1955 Requested By: MIKAYLA FUENTES Order Number: [id number] Reading MD: Srinath Rush Measurements Intervals [place] Rate: 107 P: 41 [place]: 148 QRS: 31 QRSD: 73 T: 33 QT: 297 QTc: 398 Interpretive Statements SINUS TACHYCARDIA POSSIBLE LEFT ATRIAL ENLARGEMENT [-0.1mV P-WAVE IN V1/V2] ABNORMAL RHYTHM ECG Compared to ECG 07/20/2023 17:30:19 Sinus rhythm no longer present T-wave abnormality no longer present Mikayla VENEGAS ECG ORDERABLES Final Result Performing Organization Address [facility] Co de Phone Number [facility] * LACTIC ACID W REFLEX (SEPSIS) (11/26/2024 5:41 PM CDT) Pathologist [facility] LACTIC ACID VENOUS 1.2 0.4 - 2.0 MMOL/L 11/26/2024 6:26 PM CDT [facility] 11/26/2024 5:41 PM CDT Mikayla VENEGAS LABORATORY Final Result Performing Organization Address [facility] de Phone Number [facility] [address] [place] [address], [place] [phone] * (ABNORMAL) BETA-HYDROXYBUTYRATE (11/26/2024 5:41 PM CDT) [facility] BETA-HYDROXYBU TYRATE 1.8(HH) 0.0 - 0.5 MMOL/L 11/26/2024 5:54 PM CDT [facility] Comment: Successful Call: SHALINI called 11/26/2024 05:55 PM to EMERGENCY ROOM ([facility]) by [phone]. Read Back: Yes 11/26/2024 5:41 PM CDT Mikayla VENEGAS LABORAT[facility] Final Result Performing Organization Address [facility] Co de Phone Number [facility] [address] [place] [address], [place] [phone] * (ABNORMAL) COMPREHENSIVE METABOLIC PANEL (11/26/2024 5:41 PM CDT) [facility] GLUCOSE 214(H) 70 - 99 MG/DL 11/26/2024 6:15 PM CDT [facility] BUN 26(H) 7 - 18 MG/DL 11/26/2024 6:15 PM CDT [facility] CREATININE S/P/B 1.44(H) 0.55 - 1.02 MG/DL 11/26/2024 6:15 PM CDT [facility] SODIUM S/P/B 129(L) 136 - 145 MMOL/L 11/26/2024 6:15 PM CDT [facility] POTASSIUM S/P/B 4.4 3.5 - 5.1 MMOL/L 11/26/2024 6:15 PM CDT [facility] CHLORIDE S/P/B 92(L) 97 - 115 MMOL/L 11/26/2024 6:15 PM CDT [facility] CO2 27.7 21 - 32 MMOL/L 11/26/2024 6:15 PM CDT [facility] CALCIUM S/P/B 9.7 8.5 - 10.1 MG/DL 11/26/2024 6:15 PM CDT [facility] BILIRUBIN TOTAL S/P/B 1.2 0.2 - 1.2 MG/DL 11/26/2024 6:15 PM CDT [facility] Comment: THIS ASSAY IS NOT RECOMMENDED FOR PATIENTS UNDERGOING TREATMENT WITH ELTROMBOPAG DUE TO THE POTENTIAL FOR FALSELY ELEVATED RESULTS. TOTAL PROTEIN S/P/B 7.7 6.4 - 8.2 G/DL 11/26/2024 6:15 PM CDT [facility] ALBUMIN S/P/B 2.8(L) 3.4 - 5.0 G/DL 11/26/2024 6:15 PM CDT [facility] AST 151(H) 15 - 37 U/L 11/26/2024 6:15 PM CDT [facility] ALT 95(H) 14 - 55 U/L 11/26/2024 6:15 PM CDT [facility] ALKALINE PHOSPHATASE S/P/B 128 50 - 136 U/L 11/26/2024 6:15 PM CDT [facility] ANION GAP 9.3 2 - 10 MMOL/L 11/26/2024 6:15 PM CDT [facility] BUN CREATININE RATIO 18.1 6 - 26 11/26/2024 6:15 PM CDT [facility] A/G RATIO 0.6(L) 1.0 - 2.0 RATIO 11/26/2024 6:15 PM CDT [facility] GFR ESTIMATE 39(L) >90 ML/MIN/1.7 3 M2 11/26/2024 6:15 PM CDT [facility] Comment: NOTE: eGFR is not calculated for patients <18 years of age or gender unknown. This is an estimated GFR calculation using the new CKD EPI creatinine equation without race and so does not require a correction factor for race. This estimated GFR should not be used for calculating drug doses. 11/26/2024 5:41 PM CDT Mikayla VENEGAS LABORATORY Final Result [facility] [address] [place] [address], [place] [phone] * (ABNORMAL) CBC W/DIFF AUTOMATED (11/26/2024 5:41 PM CDT) WBC 17.17(H) 4.5 - 11.0 x10'3/uL 11/26/2024 5:51 PM CDT [facility] RBC 3.45(L) 4.20 - 5.40 x10'6/uL 11/26/2024 5:51 PM CDT [facility] HGB 9.5(L) 12.0 - 16.0 G/DL 11/26/2024 5:51 PM CDT [facility] HCT 26.1(L) 38.0 - 48.0 % 11/26/2024 5:51 PM CDT [facility] MCV 75.7(L) 81.0 - 99.0 FL 11/26/2024 5:51 PM CDT [facility] MCH 27.5 27.0 - 31.0 PG 11/26/2024 5:51 PM CDT [facility] MCHC 36.4(H) 32.0 - 36.0 G/DL 11/26/2024 5:51 PM CDT [facility] RDW 12.8 11.5 - 14.5 % 11/26/2024 5:51 PM CDT [facility] PLT 328 130 - 400 x10'3/uL 11/26/2024 5:51 PM CDT [facility] MPV 10.4 9.3 - 12.2 FL 11/26/2024 5:51 PM CDT [facility] DIFFERENTIAL TYPE AUTOMATED DIFFERENTIAL 11/26/2024 5:51 PM CDT [facility] NEUTROPHILS % 83.3 % 11/26/2024 5:51 PM CDT [facility] LYMPHOCYTES % 6.9 % 11/26/2024 5:51 PM CDT [facility] MONOCYTES % 7.9 % 11/26/2024 5:51 PM CDT [facility] EOSINOPHILS 0.3 % 11/26/2024 5:51 PM CDT [facility] BASOPHILS 0.2 % 11/26/2024 5:51 PM CDT [facility] IMMATURE GRANS % 1.4 % 11/27/19 5:51 PM CDT [facility] ABS. NEUTROPHILS 14.30(H) 1.80 - 7.70 x10'3/uL 11/26/2024 5:51 PM CDT [facility] ABS. LYMPHOCYTES 1.19 1.00 - 4.80 x10'3/uL 11/26/2024 5:51 PM CDT [facility] ABS. MONOCYTES 1.35(H) 0.24 - 0.86 x10'3/uL 11/26/2024 5:51 PM CDT [facility] ABS. EOSINOPHILS 0.05 0.04 - 0.36 x10'3/uL 11/26/2024 5:51 PM CDT [facility] ABS. BASOPHILS 0.04 0.01 - 0.08 x10'3/uL 11/26/2024 5:51 PM CDT [facility] ABS. IMMATURE GRANULOCYTES 0.24 0.00 - 0.49 x10'3/uL 11/26/2024 5:51 PM CDT [facility] 11/26/2024 5:41 PM CDT Mikayla VENEGAS LABORATORY Final Result [facility] [address] [place] [address], * MAGNESIUM (11/26/2024 5:41 PM CDT) MAGNESIUM 2.2 1.8 - 2.4 MG/DL 11/26/2024 6:15 PM CDT [facility] 11/26/2024 5:41 PM CDT Mikayla VENEGAS LABORATORY Final Result [facility] [address] [place] [address], [place] [phone] * CT ABD+PEL W CON (11/04/2024 2:13 PM CDT) Anatomical Region Laterality Modality Abdomen Computed Tomogra phy 11/07/2024 8:0 8 AM CDT Impressions 11/07/2024 10:16 AM CDT Impression: 1. No significant interval change from prior examinations. Ill-defined soft tissue density in the anterior abdominal wall may relate to a lymphatic malformation or other similar benign etiology. Direct visual inspection is suggested. 2. Colonic diverticulosis without evidence of diverticulitis. 3. Common bile duct dilatation likely due to reservoir effect. The attending radiologist has reviewed the image(s) and agrees with the content of this report. Ordered By: MICHAEL PAIZ Interpreted By: Jose Gaona MD, 11/07/2024 8:08 AM Narrative 11/07/2024 10:16 AM CDT [address] [address] Examination: CT abdomen and pelvis with IV contrast. Exam time: 11/04/2024 1:48 PM Clinical Information: Right upper quadrant abdominal swelling, mass and lump. Comparison:CT abdomen pelvis 06/30/2024, CT abdomen pelvis 09/15/2018, 09/24/2023 Technique: IV contrast: 100 mL Isovue 370.was administered without immediate complications. Oral contrast: None. Technical comments: Standard technique with sagittal and coronal reconstructions. Dose reduction: This CT exam was performed using dose lowering techniques, which may include, but is not limited to, dose reduction technique, automated exposure control, and/or the use of iterative reconstruction, in accordance with ALARA (As Low As Reasonably Achievable)/Image Gently principle. Findings: LOWER CHEST Heart is normal in size. Severe motion artifact degrades evaluation lungs. Granulomata. Dependent atelectasis. No pleural or pericardial effusions. UPPER ABDOMEN Liver and bile ducts: The liver is normal in both size and contour.No focal liver lesion. Portal vein and hepatic veins are patent. Common bile duct dilatation, similar compared to prior and likely relating to reservoir effect and age. Gallbladder: Surgically absent. Pancreas: The pancreas has normal morphology without any peripancreatic inflammation. Spleen: The spleen is normal in size. RETROPERITONEUM Adrenals: The adrenal glands are normal in appearance. Kidneys: The kidneys have normal morphology and enhance symmetrically.Scattered renal cysts, unchanged Lymph nodes: No lymphadenopathy in the abdomen or pelvis. BOWEL AND PERITONEUM Stomach:The stomach has normal morphology Bowel: Colonic diverticula. Tiny supraumbilical hernia. Appendix:No periappendiceal inflammation. Free air or fluid: None. VASCULATURE The abdominal aorta is normal in caliber. Diffuse atherosclerosis of the abdominal vasculature. Calcifications are present at the ostia of the celiac and superior mesenteric arteries. PELVIS Surgically absent uterus. Pelvic phleboliths. BONES/SOFT TISSUES No fracture or aggressive osseous lesion is identified. There are degenerative changes throughout the visualized spine. Redemonstration of skin thickening with subcutaneous infiltration of soft tissue density along the right upper quadrant anterior abdominal wall (series 2 image 45). This appears grossly similar in configuration and extent as compared to 09/15/2018 and remains indeterminate. Procedure Note Jesús Freeman MD - 11/07/[address] [address] Examination: CT abdomen and pelvis with IV contrast. Exam time: 11/04/2024 1:48 PM Clinical Information: Right upper quadrant abdominal swelling, mass andlump. Comparison:CT abdomen pelvis 06/30/2024, CT abdomen pelvis 09/15/2018,09/24/2023 Technique: IV contrast: 100 mL Isovue 370.was administered without immediatecomplications. Oral contrast: None. Technical comments: Standard technique with sagittal and coronalreconstructions. Dose reduction: This CT exam was performed using dose lowering techniques,which may include, but is not limited to, dose reduction technique,automated exposure control, and/or the use of iterative reconstruction, inaccordance with ALARA (As Low As Reasonably Achievable)/Image Gentlyprinciple. Findings: LOWER CHEST Heart is normal in size. Severe motion artifact degrades evaluation lungs.Granulomata. Dependent atelectasis. No pleural or pericardial effusions. UPPER ABDOMEN Liver and bile ducts: The liver is normal in both size and contour.Nofocal liver lesion. Portal vein and hepatic veins are patent. Common bileduct dilatation, similar compared to prior and likely relating toreservoir effect and age. Gallbladder: Surgically absent. Pancreas: The pancreas has normal morphology without any peripancreaticinflammation. Spleen: The spleen is normal in size. RETROPERITONEUM Adrenals: The adrenal glands are normal in appearance. Kidneys: The kidneys have normal morphology and enhancesymmetrically.Scattered renal cysts, unchanged Lymph nodes: No lymphadenopathy in the abdomen or pelvis. BOWEL AND PERITONEUM Stomach:The stomach has normal morphology Bowel: Colonic diverticula. Tiny supraumbilical hernia. Appendix:No periappendiceal inflammation. Free air or fluid: None. VASCULATURE The abdominal aorta is normal in caliber. Diffuse atherosclerosis of theabdominal vasculature. Calcifications are present at the ostia of theceliac and superior mesenteric arteries. PELVIS Surgically absent uterus. Pelvic phleboliths. BONES/SOFT TISSUES No fracture or aggressive osseous lesion is identified. There aredegenerative changes throughout the visualized spine. Redemonstration of skin thickening with subcutaneous infiltration of softtissue density along the right upper quadrant anterior abdominal wall(series 2 image 45). This appears grossly similar in configuration andextent as compared to 09/15/2018 and remains indeterminate. Impression: 1. No significant interval change from prior examinations. Ill-definedsoft tissue density in the anterior abdominal wall may relate to alymphatic malformation or other similar benign etiology. Direct visualinspection is suggested. 2. Colonic diverticulosis without evidence of diverticulitis. 3. Common bile duct dilatation likely due to reservoir effect. The attending radiologist has reviewed the image(s) and agrees with thecontent of this report. Ordered By: MICHAEL PAIZ Interpreted By: Jose Gaona MD, 11/07/2024 8:08 AM us Michael Paiz MD CT Final Result * (ABNORMAL) CREATININE WHOLE BLOOD (11/04/2024 2:08 PM CDT) CREATININE WHOLE BLOOD 1.2 0.6 - 1.3 mg/dL 11/09/2024 8:58 AM CDT [facility] GFR ESTIMATE 49(L) >90 ml/min/1.7 3 m2 11/09/2024 8:58 AM CDT [facility] 11/04/2024 2:08 PM CDT Michael Paiz MD LABORATORY Final Result Performing Organization Address City/[facility]/ZIP Co de Phone Number [facility] [address] [place] [id number], [place] [phone] * DIABETIC RETINOPATHY EXAM (NEGATIVE) (07/01/2023) [facility] Scanned SCANNING Final Resu lt Performing Organization Address City/[facility]/ZIP Co de Phone Number [facility] * MG SCREENING W ALEJANDRA RT DIGI (06/26/2023 2:39 PM CDT) Anatomical Region Laterality Modality Breast Right Mammography 06/26/2023 3:21 PM CDT Impressions 06/26/2023 3:25 PM CDT ===== IMPRESSION: ===== 1. Stable mammographic appearance with no new findings to suggest malignancy in the breast. Assessment: ACR BI-RADS 2 - BENIGN FINDING(S) Recommendation: 1:Routine Screening Right Comments: Ordered By: SANJU BOWLES Interpreted By: Enio Alves, 06/26/2023 3:21 PM Narrative 06/26/2023 3:25 PM CDT EXAMINATION: Digital right screening mammogram with 3-D tomosynthesis EXAM DATE/TIME: 06/26/2023 2:27 PM REASON FOR EXAM: screening for breast cancer Left-sided mastectomy in 2001 COMPARISON: 05/22/2021. 03/14/2019 Technique: Digital screening mammography of the right breast was performed. Right sided MLO and CC projections are obtained. This study was read with the assistance of a computer-aided detection system. Tissue density: There are scattered areas of fibroglandular density. Findings: There is no new focal asymmetry, dominant mass lesion, area of skin thickening, or cluster of suspicious appearing calcifications in the breast to suggest malignancy. [facility] Final Result * (ABNORMAL) LIPID PANEL (01/20/2023 12:55 PM [employer] SUPERINTENDENT) CHOLESTEROL 174 100 - 199 mg/dL [facility] TRIGLYCERIDES 195(H) 0 - 149 mg/dL [facility] HDL 42 >39 mg/dL [facility] VLDL CALCULATION 34 5 - 40 mg/dL [facility] 1 LDL (CALCULATED) 98 0 - 99 mg/dL [facility] 1 01/20/2023 12:5 5 PM [employer]DS SUPERINTENDENT 01/20/2023 Narrative [facility] - 01/21/2023 9:13 AM GRE[employer] GROUNDS SUPERINTENDENT Performed at: 01 - [facility] [id number] Straightener And Aligner: López Omalley PhD, Phone: [phone] [facility] Final Result Performing Organization Address City/State/[facility] Co de Phone Number [facility] [address] [place] [address] [facility] 1 * BONE DENSITY/DEXA (09/10/2022 2:34 PM CDT) Anatomical Region Laterality Modality Bone Mammography 09/10/2022 2:41 PM CDT Impressions 09/10/2022 2:42 PM CDT IMPRESSION: WHO Classification: Normal RECOMMENDATIONS: All patients should ensure an adequate intake of dietary calcium and vitamin D. The NOF recommend adults under the age of 50 need 1000 mg of calcium and 400-800 IU of vitamin D daily. Effective therapy for the prevention and treatment of osteoporosis include bisphosphonates. Follow-up: People with diagnosed cases of osteoporosis or at high risk for fracture should have regular bone mineral density test. For patients eligible for Medicare, routine testing is allowed once every 2 years. Testing frequency can be increased to one year for patients who have rapidly progressing disease, those who are receiving or discontinuing medical therapy to restore bone mass, or have additional risk factors. Referred By: SANJU BOWLES Interpreted By: Patric Mccall MD, 09/10/2022 2:41 PM Narrative 09/10/2022 2:42 PM CDT EXAMINATION: BONE DENSITY/DEXA INDICATIONS: evaluation for osteopenia/osteoporosis, menopaus COMPARISON: None TECHNIQUE: DEXA bone mineral density evaluation was performed in the AP projection over the lumbar spine and both hips utilizing standard imaging techniques. ASSESSMENT: The BMD measured at the AP spine L1-L4 is 1.387 g/cm? with a T-score of 3.1. The BMD measured at the left femoral neck is 1.041 g/cm? with a T-score of 1.7. The BMD measured at the left hip is 1.217 g/cm? with a T-score of 2.3. The BMD measured at the right femoral neck is 1.057 g/cm? with a T-score of 1.9. The BMD measured at the right hip is 1.204 g/cm? with a T-score of 2.1. FRAX 10-year fracture risk: Major Osteoporotic Fracture: 2.3% Hip Fracture: <0.1% Procedure Note Patric Mccall MD - 09/10/2022 EXAMINATION: BONE DENSITY/DEXA INDICATIONS: evaluation for osteopenia/osteoporosis, menopaus COMPARISON: None TECHNIQUE: DEXA bone mineral density evaluation was performed in the APprojection over the lumbar spine and both hips utilizing standard imagingtechniques. ASSESSMENT: The BMD measured at the AP spine L1-L4 is 1.387 g/cm? with a T-score of3.1. The BMD measured at the left femoral neck is 1.041 g/cm? with a T-score of1.7. The BMD measured at the left hip is 1.217 g/cm? with a T-score of 2.3. The BMD measured at the right femoral neck is 1.057 g/cm? with a T-scoreof 1.9. The BMD measured at the right hip is 1.204 g/cm? with a T-score of 2.1. FRAX 10-year fracture risk: Major Osteoporotic Fracture: 2.3% Hip Fracture: <0.1% IMPRESSION: WHO Classification: Normal RECOMMENDATIONS: All patients should ensure an adequate intake of dietary calcium andvitamin D. The NOF recommend adults under the age of 50 need 1000 mg ofcalcium and 400-800 IU of vitamin D daily. Effective therapy for theprevention and treatment of osteoporosis include bisphosphonates. Follow-up: People with diagnosed cases of osteoporosis or at high risk for fractureshould have regular bone mineral density test. For patients eligible forMedicare, routine testing is allowed once every 2 years. Testing frequencycan be increased to one year for patients who have rapidly progressingdisease, those who are receiving or discontinuing medical therapy torestore bone mass, or have additional risk factors. Referred By: SANJU BOWLES Interpreted By: Patric Mccall MD, 09/10/2022 2:41 PM [facility] DEXA Final Result * HEPATITIS C ANTIBODY ([facility] ONLY) (01/27/2022 12:59 PM [employer] SUPERINTENDENT) HEPATITIS C AB NON-REACTI VE NON-REACT RANDY 01/28/2022 2:43 PM [employer] SUPERINTENDENT [facility] Comment: ANTIBODIES TO HCV NOT DETECTED. DOES NOT EXCLUDE THE POSSIBILITY OF EXPOSURE TO HCV. 01/27/2022 12:5 9 PM [employer]DS SUPERINTENDENT us [facility] Final Result [facility] [address] [place] [address], [id number] * COLONOSCOPY (01/24/2019) us Documents Scanned SCANNING Final Result [facility] ONBASE from Last 3 Months or Most Recently Relevant to Health Maintenance Additional Health Concerns Infection Onset Date Last Indicated ESBL - Extended Spectrum Bet a-lactamase Comment:07/05/21 +ESBL Urine 07/07/2021 07/07/2021 Insurance [employer] UHC MEDICARE Advance Directives * Full Code (Latest Code Status on File) Date Activated Date Inactivated Comments 09/24/2023 4:03 PM 09/26/2023 8:45 PM Care Teams Filter Press Tender Head Relationship Specialty Start Date End Date Sanju Bowles FNP [address] [place] [id number] PCP - General Nurse Practitioner Family 04/19/21
--- OUTSIDE RECORDS SUMMARY | 2025-01-30 17:01 | XMS_ITS | Encounter Summary ---
Author Organization [facility] Address [address] [address] Care Team Providers Care Marriage And Family Social Worker Name Role Phone Kenneth Gates MD Unavailable Liyah Alba APRN-DIGITAL MEDIA COORDINATOR Primary Care Provider [phone] Encounter Details Date Type Department Care Team (Late st Contact Info) Description 06/13/2024 Telephone [facility] - Endocrinology [address] [place] [address], [facility] [place] [address] Joaquina Peterson MD [address] [place] [address] [place] [address] Social History Tobacco Use Types Packs/Day Years Used Date Smoking Tobacco: Never Smokeless Tobacco: Never Alcohol Use Standard Drinks/Week Comments Yes 0 (1 standard drink = 0.6 oz pur e alcohol) SOCIAL Comments Unknown Sex and Gender Information Value Date Recorded Sex Assigned at Not on file Legal Sex Female 5:22 PM WHALE TRAINER Gender Identity Not on file Sexual Orientation Not on file documented as of this encounter Miscellaneous Notes * Telephone Encounter - Tracey Baptiste - 06/13/2024 10:09 AM CDT Patient called in requesting a Med refill. Drug type:empagliflozin (Jardiance) 25 MG tablet NovoLOG FLEXPEN pen Pharmacy: [facility] [address] [place] [address] [facility] [place] [address] [phone] Patient call back number: [phone] . Patients KATHLEEN : [birth year]01[birth year] Upcoming appointment scheduled for : 06/28/2024 documented in this encounter Plan of Treatment Upcoming Encounters Date Type Department Care Team (Late st Contact Info) Description 05/29/2025 3:40 PM CDT Office Visit [facility] - Endocrinology [address] [place] [address], [place] [address] Joaquina Peterson MD [address] [place] [address] [place] [id number] documented as of this encounter Visit Diagnoses Not on filedocumented in this encounter Care Teams Marriage And Family Social Worker Relationship Specialty Start Date End Date Liyah Alba APRN-MAURILIO [address] [place] [id number] PCP - General Nurse Practitioner 05/14/21 [place] [id number] [address] Consulting Physician Cardiac Electrophysiology 10/28/19 documented as of this encounter
--- OUTSIDE RECORDS SUMMARY | 2025-01-30 17:01 | XMS_ITS | Encounter Summary ---
Author Organization [facility] Address [address] [place] [address] Care Team Providers Care Application Security Developer Name Role Phone Liyah Alba RICHAR Primary Care Provider [phone] Zohreh Talavera RN Unavailable Unavailable Encounter Details Date Type Department Care Team (Late st Contact Info) Description 03/19/2022 [employer] Message Enc [facility] [address] [place], [facility] Provider RE: Patient Amendment Request Social History Tobacco Use Types Packs/Day Years Used Date Smoking Tobacco: Never Smokeless Tobacco: Never Comments:Never Smoked Alcohol Use Standard Drinks/Week Comments Not Currently 0 (1 standard drink = 0.6 oz pur e alcohol) socially PHQ-2 Answer Date Recorded Patient Health Questionnaire-2 Score 0 03/11/2022 Comments No Sex and Gender Information Value Date Recorded Sex Assigned at Female 05/18/2024 7:46 PM CDT Legal Sex Female 9:59 PM CDT Gender Identity Female 01/30/2021 12:14 PM BAT BOY/GIRL Sexual Orientation Straight 01/30/2021 12 :14 PM BAT BOY/GIRL COVID-19 Exposure Response Date Recorded In the last 10 days, have yo u been in contact with someone who was confirmed or suspected to have Coronavirus/COVID-19? No / Unsure 03/11/2022 3:19 PM BAT BOY/GIRL documented as of this encounter Plan of Treatment Not on file documented as of this encounter Visit Diagnoses Not on filedocumented in this encounter Additional Health Concerns Infection Onset Date Last Indicated Resolved Time ESBL - Extended Spectrum Beta-lactamase Comment:07/05/21 +ESBL Urine 07/07/2021 07/07/2021 COVID-19 Rule Out 05/08/2022 05/08/2022 05/08/2022 2:02 PM CDT COVID-19 Rule Out 01/23/2023 01/23/2023 01/23/2023 12:15 PM BAT BOY/GIRL COVID-19 Rule Out 01/23/2023 01/23/2023 01/24/2023 11:35 PM BAT BOY/GIRL COVID-19 Rule Out 11/26/2024 11/26/2024 11/26/2024 6:17 PM CDT Respiratory Rule Out 11/26/2024 11/26/2024 025 6:40 PM CDT Assessment Noted Time PHQ-9 Depression Total Score: 0 04/20/19 1:36 PM BAT BOY/GIRL documented as of this encounter Care Teams Application Security Developer Relationship Specialty Start Date End Date Liyah Alba FNP [address] [place] [id number] PCP - General Nurse Practitioner Family 04/19/21 Zohreh Talavera carpet yarn winder operator (Ambulatory) REGISTERED NURSE 11/27/24 12/27/24 documented as of this encounter
--- OUTSIDE RECORDS SUMMARY | 2025-01-30 17:01 | XMS_ITS | Encounter Summary ---
Author Organization [facility] Address [address] [place] [address] Care Team Providers Care Building Equipment Operator Name Role Phone Kenneth Gates MD Unavailable Liyah Alba APRN-CHROMIUM PLATER Primary Care Provider [phone] Encounter Details Date Type Department Care Team (Late st Contact Info) Description 04/13/2024 Telephone [facility] - Endocrinology [address] [place] [address], [place] [address] Joaquina Peterson MD [address] [place] [address] [place] [address] Social History Tobacco Use Types Packs/Day Years Used Date Smoking Tobacco: Never Smokeless Tobacco: Never Alcohol Use Standard Drinks/Week Comments Yes 0 (1 standard drink = 0.6 oz pur e alcohol) SOCIAL Comments Unknown Sex and Gender Information Value Date Recorded Sex Assigned at Not on file Legal Sex Female 5:22 PM CHIEF 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 Joaquina Peterson Reason for Call: Ms. Kandy Mederos did do her labs, she would like a call from you to review. Patient Call Back Number: [phone] F ENTERPRISE ARCHITECT documented in this encounter Plan of Treatment Upcoming Encounters Date Type Department Care Team (Late st Contact Info) Description 05/29/2025 3:40 PM CDT Office Visit [facility] - Endocrinology [address] [place] [address], [place] [address] Joaquina Peterson MD [address] [place] [address] [place] [phone] documented as of this encounter Visit Diagnoses Not on filedocumented in this encounter Care Teams Building Equipment Operator Relationship Specialty Start Date End Date Liyah Alba APRN-CHROMIUM PLATER [address] [place] [address] PCP - General Nurse Practitioner 05/14/21 [place] [id number] [phone] Consulting Physician Cardiac Electrophysiology 10/28/19 documented as of this encounter
--- OUTSIDE RECORDS SUMMARY | 2025-01-30 17:01 | XMS_ITS | Clinical Summary ---
Author Organization [facility] Address [address] [place] [address] Care Team Providers Care Lubricating Engineer Name Role Phone Unavailable Primary Care Provider Unavailabl e Allergies No known active allergies Medications empagliflozin (JARDIANCE) 25 mg tablet Take 25 mg by mouth daily in the morning. 5 Active traMADol (ULTRAM) 50 mg tablet Take 50 mg by mouth every 8 hours as needed for Pain, Moderate. 5 Active insulin aspart U-100 (NovoLOG Flexpen U-100 Insulin) 100 unit/mL pen syringe Inject 5 Units by subcutaneous injection 3 times daily with meals. 5 Active Telmisartan-Hy drochlorothiaz id 80-25 mg Tablet Take 1 Tablet by mouth daily. 5 Active gabapentin (NEURONTIN) 300 mg capsule Take 200 mg by mouth 3 times daily as needed for Pain. 5 Active acetaminophen (TYLENOL) 325 mg tablet Take [...] mg) by mouth daily. 30 Tablet 11 5 12/08/19 26 Active fluticasone propionate (FLONASE) 50 mcg/spray [place], Suspension nasal inhaler Administer 2 Sprays in each nostril daily. 16 Gram Active Additional Information Patient not taking.Reported on 01/04/2025 sodium chloride (OCEAN) 0.65 % Aerosol, [place] Administer 2 Sprays in each nostril 3 times daily. 50 mL Active polyethylene glycol (MIRALAX) 17 gram Powder in Packet Take 1 Packet (17 Grams) by mouth 2 times daily as needed for Constipation. 40 Packet Active amoxicillin-cl avulanate (AUGMENTIN) 875-125 mg tabletIndicati ons:Liver abscess Take 1 Tablet by mouth every 12 hours. 60 Tablet 1 Active ertapenem (INVanz) 1,000 mg for home infusion Inject 1 Dose by intravenous injection every 24 hours for 28 days. 28 Dose 5 01/06/20 25 Active Problems Problem Noted Date Diagnosed Date Hyponatremia 12/06/2024 Localized infection 11/30/2024 Microcytic anemia 11/29/2024 Imaging of gastrointestinal tract abnormal 11/29 Liver abscess 11/27/2024 Colon polyp 11/27/2024 Acute renal failure superimp osed on stage 3 chronic kidney disease 11/27/2024 Thyroid nodule 11/27/2024 Hypertension Hyperlipidemia Diabetes mellitus CRI (chronic renal insufficiency) Constipation Arthritis Acne Encounters Date Type Department Care Team Description 5 Telephone [facility] INFECTIOUS DISEASE TOWER B [address] [place] [address] Mayco Amador MD medical question 5 External Device Data STL ABSTRACTION Provider, Abstract 5 Telephone [facility] Radiology S [facility] [address] [place] [address] Yash Rodgers, PROCESS ANALYST Follow Up 5 2:18 PM PAPER MAKER - 5 11:59 PM PAPER MAKER Hospital Encounter [facility] CT Scan [facility] [place] [address] [place] [address] Mayco Amador MD Discharge Disposition: Home or Self Care 5 1:53 PM PAPER MAKER - 5 11:59 PM PAPER MAKER Hospital Encounter [facility] Interventional Radiology [address] [place] [address] [place] [address] Mayco Amador MD Discharge Disposition: Home or Self Care 5 Orders Only [facility] INFECTIOUS DISEASE HASKELLER B [address] [facility] [address] [place] [address] Mayco Amador MD Liver abscess (Primary Dx) 5 Telephone [facility] INFECTIOUS DISEASE [facility] [address] [facility] [place] [address] Mayco Amador MD Results 5 Telephone [facility] INFECTIOUS DISEASE [facility]LLER [address] [place] [address] Mayco Amador MD IV abx orders and CT scan 5 10:00 AM PAPER MAKER Office Visit [facility] INFECTIOUS DISEASE [facility]LL[facility] [address] [facility] [address] [place] [address] Mayco Amador MD Liver abscess (Primary Dx) 5 External Device Data STL ABSTRACTION Provider, Abstract 5 External Device Data STL ABSTRACTION Provider, Abstract 5 External Device Data STL ABSTRACTION Provider, Abstract 5 Abstract [facility] INFECTIOUS DISEASE [facility]LLER [address] [facility] [place] [address] Mayco Amador MD 5 Abstract [facility] INFECTIOUS DISEASE TOWER B [address] [facility] [address] [place] [address] Mayco Amador MD 5 Telephone [facility] INFECTIOUS DISEASE HASKELLER B [address] [facility] [address], [place] [address] Mayco Amador MD needs appt for hospital follow up; Needs Orders Written 5 External Device Data STL ABSTRACTION Provider, Abstract 5 9:47 AM CDT Anesthesia Event [facility] GI [facility] S [facility] [address] [place] [address] Meg Long MD 5 8:00 AM CDT - 5 8:40 AM CDT Surgery [facility] GI Lab S [facility] [address] [place] [address] Michael Wise MD ESOPHAGOGASTRODUODENOSCOPY 5 External Device Data STL ABSTRACTION Provider, Abstract 5 External Device Data STL ABSTRACTION Provider, Abstract 5 External Device Data STL ABSTRACTION Provider, Abstract 5 2:29 AM CDT - 5 4:24 PM CDT Hospital Encounter [facility] [address] [place] [address] Yaritza Warren MD [place]ath[place], MD Giovani Bright Gio Paulo, MD Pokal, Mytri, MD Liver abscess Discharge Disposition: [place] Health [place] [facility] Travel from Last 3 Months Immunizations Immunization [...] Influenza Vaccine High Dose 65+ Yrs IM 5,11/13/2023,12/17/2018 Influenza Virus Vaccine, Spl it Virus (Incl. [...] worry about transportation for future doctor visits, olive picker medication, etc.? No 2024 Housing Stability [...] Comments Blood Pressure 131/65 01/04/2025 9:52 AM PAPER MAKER Pulse 81 01/04/2025 9:52 AM PAPER MAKER Temperature 36.8 C (98.2 F) 12/08/2024 11:10 AM CDT Respiratory Rate 22 12/08/2024 6:00 AM CDT Oxygen Saturation 98% 01/04/2025 9:52 AM PAPER MAKER Inhaled Oxygen Concentration - - Weight 68 kg (150 lb) 01/04/2025 9:52 AM PAPER MAKER Height 162.6 cm (5' 4) 01/04/2025 9:52 AM PAPER MAKER Body Mass Index 25.75 01/04/2025 9:52 AM PAPER MAKER Plan of Treatment Upcoming Encounters Date Type Department Care Team (Late st Contact Info) Description 01/31/2025 11:30 AM PAPER MAKER Office Visit [facility] INFECTIOUS DISEASE TOWER B [address] [facility] [address] [place] [address] Mayco Amador MD [address] [place] [address] Health Maintenance Due Date Last Done Comments DIABETES ANNUAL FOOT EXAM 11/25/1971 DIABETES MICROALBUMIN ANNUAL SCREEN 11/25/1971 LDL CHOLESTEROL ANNUAL 11/25/1971 FIT-DNA Q 3 years 1998 FIT/FOBT Q 1 year 1998 Flex Sig/CT Colonography Q 5 years 1998 DIABETES ANNUAL RETINAL EXAM 04/12/2019, 06/10/2013, 06/10/2013, Additional history exists DTAP/TDAP/TD VACCINES (2 - T d or Tdap) 01/14/2022 01/15/2012 [place] Preventative Visit/Annual Wellness Visit 02/17/2024 COVID-19 Vaccine [...] Procedure Name Priority Date/Time Associated Diagnosis Comments C-REACTIVE PROTEIN Routine 01/28/2025 8:38 AM PAPER MAKER Liver abscess COMPREHENSIVE METABOLIC PANEL Routine 8:38 AM PAPER MAKER Liver abscess CBC WITH DIFFERENTIAL Routine 01/28/2025 8:38 AM PAPER MAKER Liver abscess IR TUBE PLACEMENT Routine 01/11/2025 3:10 PM PAPER MAKER Liver abscess CT ABDOMEN PELVIS W CONTRAST Routine 3:03 PM PAPER MAKER Liver abscess POC CREATININE Routine 01/11/2025 2:41 PM PAPER MAKER TELEMETRY REPORT 12/13/2024 12:46 PM CDT POC [...] 5:29 AM CDT BRAIN NATRIURETIC PEPTIDE, B RADIO COMMUNICATION COORDINATOR OR PROBNP Routine 12/03/2024 5:29 AM CDT [...] CDT from Last 3 Months Results * (ABNORMAL) CBC WITH DIFFERENTIAL (01/28/2025 8:38 AM PAPER MAKER) Only the most recent of10 resultswithin the time period is included. WBC 5.5 3.8 - 10.8 Thousand/u L [facility] RBC 3.96 3.80 - 5.10 Million/uL [facility] HEMOGLOBIN 11.0(L) 11.7 - 15.5 g/dL [facility] HEMATOCRIT 33.9(L) 35.9 - 46.0 % [facility] MCV 85.6 81.4 - 101.7 fL [facility] MCH 27.8 27.0 - 33.0 pg [facility] MCHC 32.4 31.6 - 35.4 g/dL [facility] RDW 16.0(H) 11.0 - 15.0 % [facility] PLATELETS 306 140 - 400 Thousand/u L [facility] MPV 11.2 7.5 - 12.5 fL [facility] NEUTROPHIL ABSOLUTE 2,360 1,500 - 7,800 cells/uL [facility] LYMPHOCYTE ABSOLUTE 2,519 850 - 3,900 cells/uL [facility] MONOCYTE ABSOLUTE 457 200 - 950 cells/uL [facility] EOSINOPHIL ABSOLUTE 138 15 - 500 cells/uL [facility] BASOPHILS ABSOLUTE 28 0 - 200 cells/uL [facility] NEUTROPHIL 42.9 % [facility] LYMPHOCYTES 45.8 % [facility] MONOCYTE 8.3 % [facility] EOSINOPHILS 2.5 % [facility] BASOPHILS 0.5 % [facility] Comment: FASTING:YES FASTING: YES Test Performed at: [facility] [address] [facility] [place] [address] Izabel Peng MD Blood 01/28/2025 8:38 AM PAPER MAKER 01/28/2025 8:39 AM PAPER MAKER us Mayco Amador MD HEMATOLOGY ORDERABLES Final Resu lt [facility] [phone] [facility] [place] [address] [address] [address] * (ABNORMAL) C-REACTIVE PROTEIN (01/28/2025 8:38 AM PAPER MAKER) Only the most recent of4 resultswithin the time period is included. Pathologist [facility] CRP 35.1(H) <8.0 mg/L [facility] Comment: FASTING:YES FASTING: YES Test Performed at: [facility] [address] [place] [address] Izabel Peng MD Blood 01/28/2025 8:38 AM PAPER MAKER 01/28/2025 8:39 AM PAPER MAKER Mayco Amador MD CHEMISTRY ORDERABLES Final Resul t [facility] [phone] [facility] [address] [place] [address] * (ABNORMAL) COMPREHENSIVE METABOLIC PANEL (01/28/2025 8:38 AM PAPER MAKER) Only the most recent of2 resultswithin the time period is included. [facility] GLUCOSE 185(H) 65 - 99 mg/dL [facility] Comment: Fasting reference interval For someone without known diabetes, a glucose value >125 mg/dL indicates that they may have diabetes and this should be confirmed with a follow-up test. BUN 32(H) 7 - 25 mg/dL [facility] CREATININE 1.06(H) 0.60 - 1.00 mg/dL [facility] GFR 56(L) > OR = 60 mL/min/1.7 3m2 [facility] BUN/CREAT RATIO 30(H) 6 - 22 (calc) [facility] SODIUM 136 135 - 146 mmol/L [facility] POTASSIUM 4.3 3.5 - 5.3 mmol/L [facility] CHLORIDE 101 98 - 110 mmol/L [facility] CO2 27 20 - 32 mmol/L [facility] CALCIUM 10.1 8.6 - 10.4 mg/dL [facility] TOTAL PROTEIN 7.9 6.1 - 8.1 g/dL [facility] ALBUMIN 4.1 3.6 - 5.1 g/dL [facility] GLOBULIN 3.8(H) 1.9 - 3.7 g/dL (calc) [facility] ALBUMIN/GLOBULIN RATIO 1.1 1.0 - 2.5 (calc) [facility] BILIRUBIN TOTAL 0.4 0.2 - 1.2 mg/dL [facility] ALKALINE PHOSPHATASE 41 37 - 153 U/L [facility] AST 15 10 - 35 U/L [facility] ALT 8 6 - 29 U/L [facility] Comment: FASTING:YES FASTING: YES Test Performed at: [facility] [address] [place] [address] Izabel Peng MD Blood 01/28/2025 8:38 AM PAPER MAKER 01/28/2025 8:39 AM PAPER MAKER us Mayco Amador MD CHEMISTRY ORDERABLES Final Resul t [facility] [phone] [facility] [address] [place] [address] * IR TUBE PLACEMENT (01/11/2025 3:10 PM PAPER MAKER) Only the most recent of2 resultswithin the time period is included. Narrative 01/11/2025 3:10 PM PAPER MAKER Order information only. Exam was auto-finalized. us Mayco Amador MD IR ORDERABLES Final Result * CT ABDOMEN PELVIS W CONTRAST (01/11/2025 3:03 PM PAPER MAKER) Only the most recent of2 resultswithin the time period is included. Anatomical Region Laterality Modality Abdomen Computed Tomogra phy 01/11/2025 2:59 PM PAPER MAKER Impressions 01/12/2025 5:03 PM PAPER MAKER IMPRESSION: 1. Liver abscess is significantly smaller, with a 4.7 x 2.1 x 3.1 cm residual hypodensity in this region which may represent residual abscess or phlegmon/edema. Correlate with pigtail catheter output. 2. Subcutaneous fat stranding in the anterior right upper quadrant. Correlate with physical exam for cellulitis/edema. 3. Findings suggestive of mild sigmoid colon colitis/diverticulitis versus less likely neoplasm. Dictation location: Location 4 Narrative 01/12/2025 5:[address] ABDOMEN PELVIS W CONTRAST DATE: 01/11/2025 3:03 PM CLINICAL INDICATION: Intra-abdominal abscess, liver abscess. TECHNIQUE: Axial images were obtained from the lung bases through the pubic symphysis after the administration of intravenous contrast. Multiplanar reformatted images were reviewed. The examination was performed with the adjustment of mA according to the patient size and/or the use of iterative reconstruction technique. IV contrast: IOPAMIDOL 61 % INTRAVENOUS SOLUTION (MULTI-DOSE BULK PACK) Given:75 mL COMPARISON: December 03, 2024 FINDINGS: Moderate coronary artery atherosclerotic calcifications. The lung bases, spleen, adrenal glands, left kidney, ureters, bladder, pancreas, stomach, and small bowel are unremarkable. The appendix is not seen. Pigtail catheter with tip within the fluid collection in the anterior left lobe of the liver. This fluid collection is significantly smaller, with hypodensity in this region now measuring about 4.7 x 2.1 x 3.1 cm, which may represent residual fluid collection or edema/phlegmon. Subcutaneous fat stranding in the anterior right upper quadrant. Status post cholecystectomy. Small right renal cysts. Pancolonic diverticula. Mild edema/fat stranding adjacent to the sigmoid colon. Descending and sigmoid colon wall thickening. Small bilateral fat-containing inguinal hernias. No free air, free fluid, abscess, or enlarged lymph nodes are seen in the abdomen/pelvis. The abdominal aorta is not aneurysmally dilated. The imaged osseous structures are intact. Degenerative changes of the spine. Procedure Note Jase Hogan MD - 01/12/2025 CT ABDOMEN PELVIS W CONTRAST DATE: 01/11/2025 3:03 PM CLINICAL INDICATION: Intra-abdominal abscess, liver abscess. TECHNIQUE: Axial images were obtained from the lung bases through the pubic symphysis after the administration of intravenous contrast. Multiplanar reformatted images were reviewed. The examination was performed with the adjustment of mA according to the patient size and/or the use of iterative reconstruction technique. IV contrast: IOPAMIDOL 61 % INTRAVENOUS SOLUTION (MULTI-DOSE BULK PACK) Given:75 mL COMPARISON: December 03, 2024 FINDINGS: Moderate coronary artery atherosclerotic calcifications. The lung bases, spleen, adrenal glands, left kidney, ureters, bladder, pancreas, stomach, and small bowel are unremarkable. The appendix is not seen. Pigtail catheter with tip within the fluid collection in the anterior left lobe of the liver. This fluid collection is significantly smaller, with hypodensity in this region now measuring about 4.7 x 2.1 x 3.1 cm, which may represent residual fluid collection or edema/phlegmon. Subcutaneous fat stranding in the anterior right upper quadrant. Status post cholecystectomy. Small right renal cysts. Pancolonic diverticula. Mild edema/fat stranding adjacent to the sigmoid colon. Descending and sigmoid colon wall thickening. Small bilateral fat-containing inguinal hernias. No free air, free fluid, abscess, or enlarged lymph nodes are seen in the abdomen/pelvis. The abdominal aorta is not aneurysmally dilated. The imaged osseous structures are intact. Degenerative changes of the spine. IMPRESSION: 1. Liver abscess is significantly smaller, with a 4.7 x 2.1 x 3.1 cm residual hypodensity in this region which may represent residual abscess or phlegmon/edema. Correlate with pigtail catheter output. 2. Subcutaneous fat stranding in the anterior right upper quadrant. Correlate with physical exam for cellulitis/edema. 3. Findings suggestive of mild sigmoid colon colitis/diverticulitis versus less likely neoplasm. Dictation location: Location 4 us Mayco Amador MD CT ORDERABLES Final Result * (ABNORMAL) POC CREATININE (01/11/2025 2:41 PM PAPER MAKER) CREATININE POC 1.30(H) 0.50 - 1.00 mg/dL 01/11/2025 2:41 PM PAPER MAKER [place] [facility] Comment:The GFR result is no t clinically significant on patients <18 or >70 years of age. GFR POC 44 mL/min/1.7 3 sq meter 01/11/2025 2:41 PM PAPER MAKER [facility] Comment:eGFR calculated with 2020 CKD-EPI equation. Vegetarian diet, extremely high or low muscle mass, and may affect results. Cystatin C with Glomerular Filtration Rate is a suitable alternative for these patients. Blood, whole 01/11/2025 2:41 PM PAPER MAKER 01/25/2025 9:50 AM PAPER MAKER Mayco Amador MD POINT OF CARE TESTING Final Resu lt Performing Organization Address [facility]/Va Hospital/ZIP Co de Phone Number [facility] [id number] [address] [place] [address] * TELEMETRY REPORT (12/13/2024 12:46 PM CDT) Provider Scanning ECG ORDERABLES Final Result * (ABNORMAL) POC GLUCOSE (12/08/2024 9:13 AM CDT) Only the most recent of55 resultswithin the time period is included. [facility] GLUCOSE POC 108(H) 74 - 99 mg/dL 12/08/2024 9:13 AM CDT [place] [facility] SPECIMEN SOURCE, GLUCOSE POC Whole Blood 12/08/2024 9:13 AM CDT [place] [facility] Blood, whole 12/08/2024 9:13 AM CDT 12/08/2024 9:21 AM CDT Stormy Horne MD POINT OF CARE TESTING Final Resu lt Performing Organization Address [facility] Hospital/[facility] Co de Phone Number [place] [facility]# [id number] [address] [place] [address] * (ABNORMAL) MANUAL DIFFERENTIAL (12/08/2024 5:21 AM CDT) Only the most recent of8 resultswithin the time period is included. Pathologist [facility] SEGMENTED NEUTROPHILS 86 % 12/08/2024 7:58 AM CDT [place] [facility] LYMPHOCYTES RELATIVE 10(L) 43 - 53 % 12/08/2024 7:58 AM CDT [place] [facility] MONOCYTES RELATIVE 4 % 12/08/2024 7:58 AM CDT [place] [facility] NEUTROPHILS ABSOLUTE COUNT 9.76(H) 1.90 - 7.00 K/uL 12/08/2024 7:58 AM CDT [place] [facility] LYMPHOCYTES ABSOLUTE 1.13 0.70 - 4.50 K/uL 12/08/2024 7:58 AM CDT [facility] [facility] MONOCYTES ABSOLUTE 0.41 0.10 - 1.30 K/uL 12/08/2024 7:58 AM CDT [place] [facility] TOTAL CELLS COUNTED IN DIFF 110 12/08/2024 7:58 AM T [facility] [facility] RBC MORPHOLOGY abnormal 12/08/2024 7:58 AM CDT [facility] [facility] PLATELET EST. Consistent w Count 12/08/2024 7:58 AM CDT [facility] [facility] POLYCHROMASIA 1+ /hpf 12/08/2024 7:58 AM T [facility] [facility] HYPOCHROMIA 1+ /hpf 12/08/2024 7:58 AM T [facility] [facility] Blood Venipuncture / Unknown 12/08/2024 5:21 AM CDT 12/08/2024 5:54 AM CDT Stormy Horne MD HEMATOLOGY ORDERABLES COM Final Result [facility]# [id number] [address] [place] [address] * (ABNORMAL) BASIC METABOLIC PANEL (12/08/2024 5:21 AM CDT) Only the most recent of5 resultswithin the time period is included. SODIUM 131(L) 136 - 145 mmol/L 12/08/2024 6:36 AM CDT [place] [facility] POTASSIUM 4.1 3.5 - 5.0 mmol/L 12/08/2024 6:36 AM CDT [facility] [facility] CHLORIDE 98 98 - 107 mmol/L 12/08/2024 6:36 AM CDT [facility] [facility] CO2 25 22 - 29 mmol/L 12/08/2024 6:36 AM T [place] [facility] CALCIUM 8.6 8.6 - 10.2 mg/dL 12/08/2024 6:36 AM T [facility] BUN 16 8 - 23 mg/dL 12/08/2024 6:36 AM T [facility] CREATININE 0.85 0.51 - 0.95 mg/dL 12/08/2024 6:36 AM T [facility] Comment:The GFR result is no t clinically significant on patients <18 or >70 years of age. GLUCOSE 162(H) 74 - 99 mg/dL 12/08/2024 6:36 AM [facility] GFR >60 mL/min/1.7 3 sq meter 12/08/2024 6:36 AM [facility] Comment:eGFR calculated with 2020 CKD-EPI equation. Vegetarian diet, extremely high or low muscle mass, and may affect results. Cystatin C with Glomerular Filtration Rate is a suitable alternative for these patients. ANION GAP 8 8 - 16 mmol/L 12/08/2024 6:36 AM T [facility] Blood Venipuncture / Unknown 12/08/2024 5:21 AM CDT 12/08/2024 5:54 AM CDT Stormy Horne MD CHEMISTRY ORDERABLES Final Resul t [place] [facility]# [id number] [address] [facility] [place] [address] * RESPIRATORY PATHOGEN PCR PANEL (12/07/2024 2:54 PM CDT) Respiratory Pathogen PCR Panel NOT DETECTED No respiratory pathogen nucleic acids detected. 12/07/2024 4:50 PM CDT [place] [facility] COVID-19 PCR NOT DETECTED Not Detected 12/07/2024 4:50 PM T [facility] Upper Respiratory ENTIRE NASOPHARYNX / Unknown Collection / Unknown 12/07/2024 2:54 PM CDT 12/07/2024 3:51 PM CDT Narrative [facility] - 12/07/2024 4:50 PM CDT The Film [...] pertussis Bordetella parapertussis Chlamydophila pneumoniae Mycoplasma pneumoniae us Stormy Horne MD MICROBIOLOGY - GENERAL ORDERABLE S Final Result Performing Organization Address City/Va Hospital/ZIP Co de Phone Number [facility]# [id number] [address] [place] [address] * CORTISOL LEVEL (12/06/2024 8:31 AM CDT) [facility] CORTISOL LEVEL 19.6 ug/dL 12/06/2024 9:31 AM CDT [facility] Comment: Cortisol Reference Range Morning Hours 6-10 a.m. 6.0-18.4 ug/dL Afternoon Hours 4-8 p.m. 2.7-10.5 ug/dL Blood Venipuncture / Unknown 12/06/2024 8:31 AM CDT 12/06/2024 8:46 AM CDT us Reed Matute MD CHEMISTRY ORDERABLES Final Re sult [facility]# [id number] [address] [place] [address] * TSH (12/06/2024 5:28 AM CDT) Only the most recent of2 resultswithin the time period is included. TSH 1.78 0.27 - 4.20 uIU/mL 12/06/2024 6:35 AM CDT [place] [facility] Blood Venipuncture / Unknown 12/06/2024 5:28 AM CDT 12/06/2024 5:46 AM CDT Reed Matute MD CHEMISTRY ORDERABLES Final Re sult Performing Organization Address City/Va Hospital/ZIP Co de Phone Number [facility]# [id number] [address] [place] [address] * BLOOD CULTURE (12/05/2024 10:56 PM CDT) Only the most recent of4 resultswithin the time period is included. BLOOD CULTURE No growth 12/11/2024 2:45 AM CDT [facility] Blood (Peripheral) Venipuncture / Unknown 12/05/2024 10:56 PM CDT 12/06/2024 12:12 AM CDT Reed Matute MD MICROBIOLOGY - GENERAL ORDERA BLES Final Result Performing Organization Address [facility]/ZIP Co de Phone Number [facility]# [id number] [address] [place] [address] * ELECTROLYTES, RANDOM URINE (12/05/2024 9:38 PM CDT) SODIUM, URINE 117 mmol/L 12/05/2024 10:04 PM CDT [place] [facility] POTASSIUM, URINE 11.7 mmol/L 12/05/2024 10:04 PM CDT [place] [facility] CHLORIDE, URINE 85 mmol/L 12/05/2024 10:04 PM CDT [place] [facility] Urine URINE SPECIMEN OBTAINED BY CLEAN CATCH PROCEDURE / Unknown Collection / Unknown 12/05/2024 9:38 PM CDT 12/05/2024 9:42 PM CDT [facility] - 12/05/2024 10:04 PM CDT Reference Range Not Established Reed Matute MD URINE ORDERABLES Final Result Performing Organization Address [facility]/ZIP Co de Phone Number [place] [facility]# [id number] [place] [facility] [place] [place] [address] * OSMOLALITY, URINE (12/05/2024 9:38 PM CDT) OSMOLALITY, URINE 422 50 - 1,200 mOsm/kg 12/05/2024 9:58 PM CDT [facility] Urine URINE SPECIMEN OBTAINED BY CLEAN CATCH PROCEDURE / Unknown Collection / Unknown 12/05/2024 9:38 PM CDT 12/05/2024 9:42 PM CDT [facility] - 12/05/2024 9:58 PM CDT Reference range: 50-1200 mOsm/kg H2O, depending on fluid intake. Reed Matute MD URINE ORDERABLES Final Result Performing Organization Address [facility] Co de Phone Number [facility]# [id number] [address] [place] [address] * (ABNORMAL) RENAL FUNCTION PANEL (12/05/2024 8:44 AM CDT) Only the most recent of6 resultswithin the time period is included. SODIUM 130(L) 136 - 145 mmol/L 12/05/2024 10:00 AM CDT [employer] [facility] POTASSIUM 4.7 3.5 - 5.0 mmol/L 12/05/2024 10:[address] [facility] CHLORIDE 96(L) 98 - 107 mmol/L 12/05/2024 10:00 AM CDT [employer] [facility] CO2 26 22 - 29 mmol/L 12/05/2024 10:00 AM [facility] CALCIUM 9.3 8.6 - 10.2 mg/dL 12/05/2024 10:00 AM [facility] BUN 12 8 - 23 mg/dL 12/05/2024 10:00 AM [facility] CREATININE 0.77 0.51 - 0.95 mg/dL 12/05/2024 10:00 AM [facility] Comment:The GFR result is no t clinically significant on patients <18 or >70 years of age. GLUCOSE 145(H) 74 - 99 mg/dL 12/05/2024 10:00 AM [facility] ALBUMIN 2.9(L) 3.5 - 5.2 g/dL 12/05/2024 10:00 AM [facility] PHOSPHORUS 3.0 2.5 - 4.5 mg/dL 12/05/2024 10:00 AM [facility] GFR >60 mL/min/1.7 3 sq meter 12/05/2024 10:00 AM [facility] Comment:eGFR calculated with 2020 CKD-EPI equation. Vegetarian diet, extremely high or low muscle mass, and may affect results. Cystatin C with Glomerular Filtration Rate is a suitable alternative for these patients. ANION GAP 8 8 - 16 mmol/L 12/05/2024 10:00 AM [facility] Blood Venipuncture / Unknown 12/05/2024 8:44 AM CDT 12/05/2024 9:13 AM CDT us Reed Matute MD CHEMISTRY ORDERABLES Final Re sult [facility] [id number] 0 [facility] [address] [address] * MAGNESIUM LEVEL (12/04/2024 5:53 AM CDT) Only the most recent of6 resultswithin the time period is included. MAGNESIUM 2.0 1.6 - 2.4 mg/dL 12/04/2024 7:05 AM CDT [facility] Blood Venipuncture / Unknown 12/04/2024 5:53 AM CDT 12/04/2024 6:25 AM CDT Reed Matute MD CHEMISTRY ORDERABLES Final Re sult [facility] CLIA# [id number] [address] [place] [address] * XR PANOREX (12/03/2024 9:47 AM CDT) Anatomical Region Laterality Modality Head Computed Radiogr aphy 12/03/2024 9:47 AM CDT Impressions 12/03/2024 7:30 PM CDT : 1. Multiple teeth are absent. 2. No evidence of dental abscess. 3. No fracture or dislocation in the mandible. DICTATION LOCATION: Location 2 - [facility] Narrative 12/03/2024 7:30 PM CDT XR PANOREX DATE: 12/03/2024 9:47 AM HISTORY: Tooth Pain. Arthritis; Imaging of gastrointestinal tract abnormal COMPARISON: None TECHNIQUE: Routine Panorex view of the mandible FINDINGS: No fracture or dislocation is seen in the mandible. Teeth numbers 13, 14, 16, 17, 19, 29, 30, 31, and 32 are absent. There is no evidence of periapical abscess. us Mayco Amador MD DIAGNOSTIC IMAGING ORDERABLES Fi nal Result * ECHOCARDIOGRAM W/ CONTRAST AGENT (12/03/2024 8:45 AM CDT) EJECTION FRACTION 64 INTERFACE SYSTEM 12/03/2024 8:26 AM CDT Narrative INTERFACE SYSTEM - 12/03/2024 2:43 PM CDT [facility] [address] [place] [address] wwwnoni/Melody Management Transthoracic Echocardiogram Patient: Rani Mederos Study ID: ECHO LIMITED W C Gender: F : 1955 Age: 69 Race: [facility] Height 162.6cm Study Date: 12/03/2024 Weight: 77.3kg Access. #: [id number] BP: *Referring Physician:* Reed Matute *Ordering Physician:* Reed Matute crew chief: Nurse: Indications: Hypervolemia. STUDY CONCLUSIONS: SUMMARY: - [...] Prepared and Electronically Authenticated Ministerio Hernandez MD [id number] Procedure Note Ministerio Hernandez MD - 12/03/2024 [place] [address] [email or web address] Transthoracic Echocardiogram Patient: Rani Mederos Study ID: ECHO LIMITED W C Gender: F : 1955 Age: 69 Race: OTH Height 162.6cm Study Date: 12/03/2024 Weight: 77.3kg Access. #: [id number] BP: *Referring Physician:* Reed Matute *Ordering Physician:* Reed Matute crew chief: Nurse: Indications: Hypervolemia. STUDY CONCLUSIONS: SUMMARY: - [...] shelli values outside specified reference range. (N) heerdia values inside specified reference range. Procedure data: [...] Prepared and Electronically Authenticated Ministerio Hernandez MD [id number]:41 us Reed Matute MD ORDERABLES Final Result INTERFACE SYSTEM Refer to clinic/hospital department * (ABNORMAL) BRAIN NATRIURETIC PEPTIDE, BNP OR PROBNP (12/03/2024 5:29 AM CDT) PROBNP, N TERMINAL 670(H) <124 pg/mL 12/03/2024 6:43 AM CDT [facility] Comment: INTERPRETIVE COMMENT based on diagnosis: Diagnostic [...] 5:29 AM CDT 12/03/2024 5:41 AM CDT Reed Matute MD CHEMISTRY ORDERABLES Final Re sult [facility]# [id number] [address] [place] [address] * XR ABDOMEN 1 VW (12/02/2024 9:05 AM CDT) Anatomical Region Laterality Modality Abdomen Computed Radiogr aphy 12/02/2024 9:05 AM CDT Impressions 12/02/2024 10:09 AM CDT IMPRESSION: Bowel gas pattern is unremarkable. Pigtail drainage catheter overlying the epigastric region. DICTATION LOCATION: Location 1 - [facility] Narrative 12/02/2024 10:09 AM CDT ABDOMEN DATE: [...] catheter overlying the epigastric region. DICTATION LOCATION: [address] Reed Matute MD DIAGNOSTIC IMAGING ORDERABLES Final Result * XR CHEST PA OR AP 1 VW (12/02/2024 9:05 AM CDT) Only the most recent of2 resultswithin the time period is included. Anatomical Region Laterality Modality Chest Computed Radiogr aphy 12/02/2024 9:05 AM CDT Impressions 12/02/2024 10:09 AM CDT IMPRESSION: Mild left basilar infiltrate or atelectasis. Findings suggesting early fluid overload. DICTATION LOCATION: [address] Narrative 12/02/2024 10:09 AM CDT CHEST, [...] suggesting early fluid overload. DICTATION LOCATION: Location [address] [place] [address] us Reed Matute MD DIAGNOSTIC IMAGING ORDERABLES Final Result * (ABNORMAL) HEPATIC FUNCTION PANEL (12/02/2024 3:17 AM CDT) Only the most recent of2 resultswithin the time period is included. TOTAL PROTEIN 6.5(L) 6.7 - 8.6 g/dL 12/02/2024 2:31 PM CDT [facility] ALBUMIN 2.7(L) 3.5 - 5.2 g/dL 12/02/2024 2:31 PM [address] [facility] BILIRUBIN TOTAL 0.9 0.0 - 1.1 mg/dL 12/02/2024 2:31 PM CDT [facility] BILIRUBIN DIRECT 0.6(H) <0.4 mg/dL 12/03/19 25 2:31 PM CDT [facility] ALKALINE PHOSPHATASE 182(H) 35 - 104 U/L 12/02/2024 2:31 PM CDT [facility] AST 47(H) <33 U/L 12/02/2024 2:31 PM CDT [facility] ALT 38(H) <34 U/L 12/02/2024 2:31 PM CDT [facility] Blood Venipuncture / Unknown 12/02/2024 3:17 AM CDT 12/02/2024 3:23 AM CDT [facility] - 12/02/2024 2:31 PM CDT Samples containing indocyanine green cause interferences on Total and/or Direct Bilirubin and must not be measured. Mayco Amador MD CHEMISTRY ORDERABLES Final Resul t [facility]# [id number] [address] [place] [address] [address] [place] [address] * IR VENOUS ACCESS (12/01/2024 2:29 PM CDT) Narrative 12/01/2024 2:30 PM CDT Order information only. Exam was auto-finalized. Mayco Amador MD IR ORDERABLES Final Result * COLONOSCOPY REPORT (11/30/2024 10:32 AM CDT) Narrative Procedure Note Michael Wise MD - 11/30/2024 10:32 AM CDT [facility] Endoscopy Patient Name: Rani Mederos Procedure [...] of Addenda: [address]; [place] [address] Michael Wise MD GI PROCEDURE ORDERABLES Final Re sult * UPPER ENDOSCOPY REPORT (11/30/2024 10:28 AM CDT) Narrative Procedure Note Michael Wise MD - 11/30/2024 10:28 AM CDT [facility] Endoscopy Patient Name: Rani Mederos Procedure [...] 10:28:28 AM Number of Addenda: 0 [address] ; [place] [address] Michael Wise MD GI PROCEDURE ORDERABLES Final Re sult * (ABNORMAL) ANAEROBIC/AEROBIC CULTURE W GRAM STAIN (11/28/2024 11:29 AM CDT) CULTURE Scant growth Fusobacterium nucleatum(A) MOLLY MCG/ML 12/03/2024 1:48 PM CDT [facility] Comment:Anaerobe therapy rec ommendation: metronidazole. Alternatively: ampicillin/sulbactam or clindamycin. GRAM STAIN No organisms observed 12/03/2024 1:48 PM CDT [facility] GRAM STAIN 4+ (Heavy) Polymorphonuclear WBC 12/03/2024 1:48 PM CD[address] [facility] Aspirate ENTIRE LIVER / Unknown Collection / Unknown 11/28/2024 11:29 AM CDT 11/28/2024 1:16 PM CDT Yaritza Warren MD MICROBIOLOGY - GENERAL ORDERABLES Final Result [facility] CLIA# [id number] [address] [facility] [place] [place] [address] * CYTOLOGY, NON GYNE (11/28/2024 11:29 AM CDT) CASE REPORT Medical Cytology Report Case: [id number] Authorizing Provider: Yaritza Warren Collected: 11/28/2024 11:29 AM MD Dinesh Ordering Location: [facility] Received: 12/02/2024 12:51 PM Medical Progressive Care Unit Pathologist: Jessie Guillen MD Specimen: Liver 7:54 AM CDT [facility] FINAL DIAGNOSIS Liver, aspiration: - Dense acute inflammation. - No atypical cells identified. 7:54 AM T [facility] at 0754 CDT GROSS DESCRIPTION Received is a container labeled Rani Mederos and liver. It contains 6 mL of opaque brown-red fluid. One ThinPrep and a cell block made. 7:54 AM CDT [facility] MICROSCOPIC DESCRIPTION The slides are labeled [id number] and Rani Mederos. The ThinPrep slide shows dense acute inflammation. No atypical cells are identified. The cellblock shows identical findings. 7:54 AM CDT [facility] CLINICAL INFORMATION No Dx found. 7:54 AM CDT [facility] COMMENT Special stain, immunohistochemical, and/or in situ hybridization results are interpreted with controls that demonstrate appropriate staining reactions. Note on use of immunohistochemistry reagents and in situ hybridization probes: These tests were developed and their performance characteristics determined by [facility], Department of Laboratory Medicine. It has not [...] part or completely in the following laboratories: [facility], CLIA #[id number] [address] [place] [address] [facility], CLIA #[id number] [address] [place] [address]. 7:54 AM CDT [facility] Body fluid ENTIRE LIVER / Unknown Collection / Unknown 11/28/2024 11:29 AM CDT 12/02/2024 12:51 PM CDT Yaritza Warren MD PATHOLOGY/CYTO LOGY ORDERABLES Final Result Performing Organization Address City/State/[facility] Co de Phone Number [facility] CLIA# [id number] [address] [place] [address] * CT ABSCESS DRAIN PERCUTANEOUS (11/28/2024 11:28 AM CDT) Anatomical Region Laterality Modality Computed Tomogra phy 11/28/2024 11:2 4 AM CDT Impressions 11/28/2024 4:19 PM CDT IMPRESSION: Successful percutaneous image-guided visceral fluid collection drainage by catheter. DICTATION LOCATION: Location 1 - [facility] Narrative 11/28/2024 4:19 PM CDT EXAMINATION: PERCUTANEOUS IMAGE-GUIDED VISCERAL FLUID COLLECTION DRAINAGE BY CATHETER USING CT GUIDANCE DATE: 11/28/2024 11:28 AM HISTORY: 69 years-old Female with liver abscess. ANESTHESIA: The procedure was performed with local anesthesia. PHYSICIAN(S): Dr. Berry Lucio MD TECHNIQUE: The risks, benefits and alternatives were discussed and informed consent was obtained. Prior to beginning the procedure, [place] Protocol was performed to confirm the patient's [...] the collection before dilating the tract. A 14-Khmer catheter was then advanced over the guidewire [...] was obtained. Prior to beginning the procedure, [place] Protocol was performed to confirm the patient's [...] the collection before dilating the tract. A 14-Khmer catheter was then advanced over the guidewire [...] by catheter. DICTATION LOCATION: Location 1 - [facility] Berry Lucio MD CT ORDERABLES Final Result * (ABNORMAL) URINALYSIS WITH REFLEX MICROSCOPIC (11/27/2024 3:50 AM CDT) COLOR UA Yellow Pale to Dark Yellow 11/27/2024 4:34 AM T [facility] CLARITY UA Clear Clear 11/27/2024 4:34 AM [facility] SPECIFIC GRAVITY UA 1.015 1.003 - 1.035 11/27/2024 4:34 AM [facility] PH UA 5.5 5.0 - 8.0 11/27/2024 4:34 AM T [facility] LEUKOCYTE ESTERASE UA Negative Negative 11/27/2024 4:34 AM T [facility] NITRITE UA Negative Negative 11/27/2024 4:34 AM [facility] PROTEIN UA 1+(A) Negative 11/27/2024 4:34 AM [facility] GLUCOSE UA 3+(A) Negative 11/27/2024 4:34 AM [facility] KETONES UA 1+(A) Negative 11/27/2024 4:34 AM T [facility] UROBILINOGEN UA 0.2 <2.0 mg/dL 4:34 AM T [facility] - . [facility] BILIRUBIN UA Negative Negative 11/27/2024 4:34 AM T [facility] - . [facility] BLOOD UA Negative Negative 11/27/2024 4:34 AM T [facility] Comment:Ascorbic acid may ca use false negative results for blood. A microscopic review was reflexed to rule out this interference. WBC UA 3-5(A) 0 - 2 /hpf 11/27/2024 4:34 AM CDT [facility] RBC UA 3-5(A) 0 - 2 /hpf 11/27/2024 4:34 AM CDT [facility] BACTERIA UA Negative Negative /hpf 11/27/2024 4:34 AM CDT [facility] EPITHELIAL CELLS, URINE 0-5 0 - 5 /hpf 11/27/2024 4:34 AM CDT [facility] Ascorbic Acid UA Positive(A) Negative 025 4:34 AM CDT [facility] Urine URINE SPECIMEN OBTAINED BY CLEAN CATCH PROCEDURE / Unknown Collection / Unknown 11/27/2024 3:50 AM CDT 11/27/2024 4:00 AM CDT Yaritza Warren MD URINE ORDERABL ES Final Result [facility]# [id number] [address] [place] [address] * (ABNORMAL) PROTIME-INR (11/27/2024 3:26 AM CDT) PROTIME 16.9(H) 12.7 - 15.1 Seconds 11/27/2024 4:31 AM CDT [facility] INR 1.4(H) 0.9 - 1.1 11/27/2024 4:31 AM CDT [facility] Blood Venipuncture / Unknown 11/27/2024 3:26 AM CDT 11/27/2024 4:08 AM CDT Narrative [facility] - 11/27/2024 4:31 AM CDT INR Therapeutic Range: Adult: 2.0 - 3.0 for pulmonary embolism or prophylaxis against venous thrombosis or systemic embolization. 2.0 - 3.0 for patients with tissue heart valves. 2.5 - 3.5 for patients with mechanical heart valves or post CT. Pediatric (12 years and under): 1.5 - 3.0 Although the target range in children is not well established, INR values of 1.5 - 3.0 are recommended for most patients. Higher values have been used in children with prosthetic cardiac valves and hereditary clotting disorders. [place] (<3 days) therapeutic ranges have not been established. Yaritza Warren MD HEMATOLOGY ORD ERABLES Final Result [facility]# [id number] [address] [place] [address] * (ABNORMAL) HEMOGLOBIN A1C (11/27/2024 3:26 AM CDT) HEMOGLOBIN A1C 7.9(H) <5.7 % 11/27/2024 8:29 AM CDT [facility] EST. AVG GLUCOSE, A1C 180 mg/dL 11/27/2024 8:29 AM CDT [facility] Blood Venipuncture / Unknown 11/27/2024 3:26 AM CDT 11/27/2024 4:08 AM CDT Narrative [facility] - 11/27/2024 8:29 AM CDT HGB A1C INTERPRETATION NORMAL: <5.7% PRE-DIABETES: 5.7 - 6.4% DIABETES: 6.5% OR GREATER Yaritza Warren MD CHEMISTRY ORDE JACQUES Final Result [facility]# [id number] [address] [place] [address] [address] from Last 3 Months Insurance [facility] [employer] [facility] [id number] Advance Directives For more information, please contact: [phone] * Full Code (Latest Code Status on File) Date Activated Date Inactivated Comments 11/27/2024 2:43 AM 12/08/2024 6:24 PM
--- OUTSIDE RECORDS SUMMARY | 2025-01-30 17:01 | XMS_ITS | Encounter Summary ---
Author Organization [facility] Address [address] [place] [address] Care Team Providers Care Char Filter Operator Helper Name Role Phone Kenneth Gates MD Unavailable Liyah Alba APRN-ENTRY LEVEL DRAFTER Primary Care Provider [phone] Encounter Details Date Type Department Care Team (Late Contact Info) Description 07/14/2023 Telephone [facility] - Centralized Scheduling [address] [place] [phone] Joaquina Peterson MD [address] [place] [address] [address] [place] [address] Social History Tobacco Use Types Packs/Day Years Used Date Smoking Tobacco: Never Smokeless Tobacco: Never Alcohol Use Standard Drinks/Week Comments Yes 0 (1 standard drink = 0.6 oz pur e alcohol) SOCIAL Comments Unknown Sex and Gender Information Value Date Recorded Sex Assigned at Not on file Legal 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 Gender Identity Not on file Sexual Orientation Not on file documented as of this encounter Plan of Treatment Upcoming Encounters Date Type Department Care Team (Late Contact Info) Description 05/29/2025 3:40 PM CDT Office Visit [facility] - Endocrinology [address] [place] [address], [place] [phone] Joaquina Peterson MD [address] [place] [address] [address] [place] [address] documented as of this encounter Visit Diagnoses Not on filedocumented in this encounter Care Teams Char Filter Operator Helper Relationship Specialty Start Date End Date Liyah Alba APRN-MAURILIO [address] [place] [address] PCP - General Nurse Practitioner 05/14/21 [place] [id number] [phone] Consulting Physician Cardiac Electrophysiology 10/28/19 documented as of this encounter
--- OUTSIDE RECORDS SUMMARY | 2025-01-30 17:01 | XMS_ITS | Encounter Summary ---
Author Organization [facility] Address [address] [facility] [place] [address] Care Team Providers Care Technical Services Consultant Name Role Phone Kenneth Gates MD Unavailable Liyah Abla APRN-SITE LEAD Primary Care Provider [phone] Reason for Visit * Reason Onset Date Comments MEDICATION REFILL 03/11/2024 Encounter Details Date Type Department Care Team (Late Contact Info) Description 03/11/2024 Refill [facility] - Endocrinology [address] [place] [address] Joaquina Peterson MD [address] [place] [address] [address] [facility] [place] [phone] MEDICATION REFILL Social History Tobacco Use Types Packs/Day Years Used Date Smoking Tobacco: Never Smokeless Tobacco: Never Alcohol Use Standard Drinks/Week Comments Yes 0 (1 standard drink = 0.6 oz pur e alcohol) SOCIAL Comments Unknown Sex and Gender Information Value Date Recorded Sex Assigned at Not on file 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 Gender Identity Not on file Sexual Orientation Not on file documented as of this encounter Plan of Treatment Upcoming Encounters Date Type Department Care Team (Late Contact Info) Description 05/29/2025 3:40 PM CDT Office Visit [facility] - Endocrinology [address] [place] [address], [place] [phone] Joaquina Peterson MD [address] [place] [address] [address] [place] [address] documented as of this encounter Visit Diagnoses Not on filedocumented in this encounter Care Teams Technical Services Consultant Relationship Specialty Start Date End Date JaeladamarisLiyahIZABELLA-SITE LEAD [address] [place] [address] PCP - General Nurse Practitioner 05/14/21 [place] [id number] [address] Consulting Physician Cardiac Electrophysiology 10/28/19 documented as of this encounter
--- OUTSIDE RECORDS SUMMARY | 2025-01-30 17:01 | XMS_ITS | Clinical Summary ---
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 04/27/2018 SVT (supraventricular [...] Type Department Care Team Description 12/07/2024 Telephone [facility] [address] [place] [phone] Unknown, Notinfile from Last 3 Months [...] on file Legal Sex Female 3:24 AM MANAGER OF [facility]IED HE[facility] Gender Identity Not on file Sexual Orientation [...] 70.3 kg (155 lb) 03/22/2024 1:34 PM MANAGER OF [employer]IED HE[facility] Height 162.6 cm (5' 4) 03/22/2024 1:34 PM MANAGER OF [employer]IED HE[facility] SERVICES Body Mass Index 26.61 03/22/2024 1:34 PM MANAGER OF [employer] [employer] Plan of Treatment Health Maintenance Due Date [...] Read Routine (OP Routine) 04/19/2024 2:33 PM MANAGER OF [employer] [facility] [employer] Screening mammogram, encounter for EGFR Routine 10/07/2023 2:01 PM CDT COLONOSCOPY 01/24/2019 8:11 AM MANAGER OF [facility] HEMOGLOBIN A1C Routine 04/25/2018 5:44 AM CDT TNI WITH LIPID PANEL Routine 09/20/2017 2:33 AM CDT from Last 3 Months or Most Recently Relevant to Health Maintenance Results * Screening Mammogram Right W Hector Unilateral Only (04/19/2024 2:33 PM MANAGER OF [facility]) Anatomical Region Laterality Modality Breast Right Mammography Impressions 04/20/2024 1:52 PM MANAGER OF [employer]IED HE[facility] SERVICES BI-RADS ATLAS category (right): 1 - Negative There is no mammographic evidence of malignancy. A 1 year screening mammogram is recommended. The patient has been or will be contacted. We recommend annual screening mammography for women at average risk of breast cancer beginning at age 40, based on guidelines of the [employer] (ACR Practice Parameter for the Performance of Screening and Diagnostic Mammography) and [employer]. For women with and elevated risk of breast cancer, please refer to the ACR Practice Parameter for specific screening recommendations. The patient will be entered into a reminder system with a target due date of 1 year for her next screening exam. Narrative 04/20/2024 1:52 PM MANAGER OF ALLIED HE[facility] SERVICES Screening Mammogram Right W Hector Unilateral Only: [...] was last reviewed 2020. Testing performed by: [facility], [address] [place] [address], [place]., [address] Blood 10/07/2023 2:01 PM CDT 10/07/2023 4:08 PM CDT us Jesús Mayberry Yuan DO LAB BLOOD ORDERABLES Final Result [address] [facility] Department [place] [address] * COLONOSCOPY (01/24/2019 8:11 AM MANAGER OF [facility]) Anatomical Region Laterality Modality Other Narrative Procedure Note Biju Lopez MD - 01/24/2019 8:11 AM CST [facility] Patient Name: Murphy yRan Procedure Date: 01/24/2019 8:11 AM Date of : 1955 Admit Type: Outpatient Age: 63 Gender: Female Attending MD: Biju Lopez M.D. Room: [facility] ENDOSCOPY ROOM 9 Note Status: Finalized Procedure: Colonoscopy Indications: Screening for colorectal malignant neoplasm (last colonoscopy was more than 10 years ago); h/o Uncomplicated Diverticulitis in 10/2018 Referring MD: Frederic Graham M.D. Providers: Biju Lopez M.D. Medicines: [...] was passed under direct vision.The PCF [id number] endoscope was introduced throughthe anus and advanced to the cecum, identified by appendiceal orifice and ileocecal valve. The colonoscopy was somewhat difficult due to poor bowel prep and a redundant colon. The patient toleratedthe procedure well. The quality of the bowel preparation was evaluated using the BBPS (Blakeslee BowelPreparation Scale) with scores of: Right Colon [...] following this procedure please call my officeat [phone] to speak to my nurses. Afterhours and evenings please call [phone] and speak tothe GI fellow speech communication instructor. Please tell them that Dr. Lopez did your procedure and that your were instructed to have the fellow call me or the physician covering for meto discuss the management of your condition. If youhave an urgent problem, [facility] and have the ER doctor call my office duringthe day or the GI Fellow after hours and weekends to arrange admission or transfer to our facility. - Call my nurse Rosemary Uribe RN in the GI office at [phone] for your final pathology results in 7days. Attending Participation: I personally performed the entire procedure. Electronically Signed By: Biju Lopez M.D. Biju Lopez M.D. 01/24/2019 8:50:42 AM . Number of Addenda: 0 Note Initiated On: 01/24/2019 8:11 AM Recognized by the [employer] for promoting quality in endoscopy Biju Lopez MD ENDOSCOPY PROCEDURES Final Result * (ABNORMAL) TNI with LIPID PANEL (09/20/2017 2:33 AM CDT) Troponin I < 0.300 0.000 - 0.300 ng/mL 09/20/2017 3:12 AM T [employer] HISTORICAL RESULTS Comment: Reference using ALBERTO Chemiluminescence Negative: Repeat in 4-6 hours as indicated. Triglycerides 297(H) 0 - 149 mg/dL 09/20/2017 3:12 AM T [employer] HISTORICAL RESULTS Comment: LDL(measured) to follow due to Triglycerides >250 mg/dL. National Lipid Association/NCEP Guidelines: Normal < 150 mg/dL Borderline high 150-199 mg/dL High 200-499 mg/dL Very High >=500 mg/dL Cholesterol 191 0 - 199 mg/dL 09/20/2017 3:12 AM T [employer] HISTORICAL RESULTS Comment: National Lipid Association/NCEP Guidelines: Desirable < 200 mg/dL Borderline high: 200-239 mg/dL High Risk: >=240 mg/dL HDL Cholesterol 44 mg/dL 8 3:12 AM [facility] [employer] HISTORICAL RESULTS Comment: Reference Ranges: Males: >=40 mg/dL Females: >=50 mg/dL Cholesterol/HDL Ratio 4.3 09/20/2017 3:12 AM [facility] [employer] HISTORICAL RESULTS Comment: Optimal < 3.5:1 High > 5:1 09/20/2017 2:33 AM CDT 09/20/2017 2:37 AM CDT us Ryan Yuan MD LAB BLOOD ORDERABLES Final Result [facility] [employer] HISTORICAL RESULTS from Last 3 Months or Most Recently Relevant to Health Maintenance Insurance FOR LIFE UHC MEDICARE ADVANTAGE FOR LIFE [facility] AETNA [facility] MEDICARE ADVANTAGE FOR LIFE Advance Directives For more information, please contact: [phone] Documents on File Type Date Recorded Patient Veneer Sander Expl anation ADVANCE DIRECTIVE 07/01/2012 12:00 AM PATRICIA LYNCH WILL ADVANCE DIRECTIVE 07/01/2012 12:00 AM 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
--- OUTSIDE RECORDS SUMMARY | 2025-01-30 17:01 | XMS_ITS | Encounter Summary ---
Author Organization [facility] Address [address] [place] [address] Care Team Providers Care Project Administrative Assistant Name Role Phone Liyah Alba RICHAR Primary Care Provider [phone] Zohreh Talavera RN Unavailable Unavailable Reason for Visit * Auth/Cert (Routine) Specialty Diagnoses / Procedures Referred By Lynne conrad Referred To Contact Diagnoses Myofascial pain myofascial pain Procedures INJECT TRIGGER POINT, 1 OR 2 INJECTION TRIGGER POINT-cervical Rossi Rojas MD [facility] [address] [place] [address] Phone: tel: fax: Referral ID Status Reason Start Date Expiration Date Visits Re quested Visits Authorized [id number] 1 1 Encounter Details Date Type Department Care Team (Late st Contact Info) Description 10/18/2024 Hospital Encounter [facility] [place], [place] [id number] Rossi Rojas MD [facility] [address] [place] [id number] Social History Tobacco Use Types Packs/Day Years Used Date Smoking Tobacco: Never Smokeless Tobacco: Never Comments:Never Smoked Alcohol Use Standard Drinks/Week Comments Not Currently 2.7 (1 standard drink = 0.6 oz p ure alcohol) Socially [facility] Utilities Answer Date Recorded In the [...] any time in the past 12 m [facility], were you homeless or living in a residential (including now)? 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 Answer Date of Assessment Author Status No 09/24/2023 4:02 PM JESSICAT Elva Love RN Active * Do you have serious difficulty walking or climbing stairs? Answer Date of Assessment Author Status No 09/24/2023 4:02 PM JESSICAT Elva Love RN Active * Do you have difficulty dressing or bathing? Answer Date of Assessment Author Status No 09/24/2023 4:02 PM JESSICAT Elva Love RN Active * Because of a physical, mental, or emotional condition, do you have difficulty doing errands alone such as visiting a doctor's office or shopping? Answer Date of Assessment Author Status No 09/24/2023 4:02 PM JESSICAT Elva Love RN Active * Calculated C-SSRS Risk Score (Lifetime/Recent) Answer Date of Assessment Author Status No Risk Indicated 11/26/2024 5:31 PM CDT Sol Vasquez RN Active * Webb Suicide Severity Rating Scale (Screener/Recent Self-Report) Question Answer Date of Assessment Author Status 1. Wish to be (Past 1 Month) No 11/26/2024 5:31 PM Breanne Bartlett RN A ctive 2. Non-Specific Active Suicidal Thoughts (Past 1 Month) No 11/26/2024 5:31 PM Breanne Bartlett RN A ctive 6. Suicidal Behavior (Lifetime) No 11/26/2024 5:31 PM Breanne Bartlett RN A ctive documented as of this encounter Mental Status * Because of a physical, mental, or emotional condition, do you have serious difficulty concentrating, remembering, or making decisions? Answer Entry Date Author Status No 09/24/2023 4:02 PM CDT Elva Love RN Active documented in this encounter Plan of Treatment Not on file documented as of this encounter Goals Goal Patient Goal Type Associated Problems Recent Progress Patient-Stated? Author Health - patient able to perform ADLs independently Lifestyle No Lobo Barreto i, RN Establish Regular Follow-Ups with PCP Lifestyle No Adryan Tlaavera ra RN Monitor - verbalizes recognition of s/s wound infections Lifestyle No Zohreh Talavera, RN Medications - able to self-administer medications Lifestyle No Zohreh Talavera, RN Note: Pt verbalizes understanding on self administration of IV abx documented as of this encounter Visit Diagnoses Diagnosis Myofascial pain- Primary Mylagia and myositis, unspecified documented in this encounter Admitting Diagnoses Diagnosis Myofascial pain Mylagia and myositis, unspecified documented in this encounter Additional Health Concerns Infection Onset Date Last Indicated Resolved Time ESBL - Extended Spectrum Beta-lactamase Comment:07/05/21 +ESBL Urine 07/07/2021 07/07/2021 COVID-19 Rule Out 11/26/2024 11/26/2024 11/26/2024 6:17 PM CDT Respiratory Rule Out 11/26/2024 11/26/2024 025 6:40 PM CDT Assessment Noted Time PHQ-9 Depression Total Score: 4 06/12/19 24 2:21 PM CDT documented as of this encounter Care Teams Project Administrative Assistant Relationship Specialty Start Date End Date Liyah Alba FNP [address] [place] [id number] PCP - General Nurse Practitioner Family 04/19/21 Zohreh Talavera RN Care Manager (Ambulatory) REGISTERED NURSE 11/27/24 12/27/24 documented as of this encounter
--- OUTSIDE RECORDS SUMMARY | 2025-01-30 17:01 | XMS_ITS | Encounter Summary ---
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 Utilities Answer Date Recorded In the past 12 months has [facility] [employer], gas, oil, or water [employer] threatened to shut off services in your [...] any time in the past 12 m [facility], were you homeless or living in a residential (including now)? 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 Answer Date of Assessment Author Status No 09/24/2023 4:02 PM JESSICAT Elva Love RN Active * Do you have serious difficulty walking or climbing stairs? Answer Date of Assessment Author Status No 09/24/2023 4:02 PM Elva Reynolds RN Active * Do you have difficulty [...] 4:02 PM JESSICAT Elva Love RN Active documented as of this encounter Mental Status * Because of a physical, mental, or emotional condition, do you have serious difficulty concentrating, remembering, or making decisions? Answer Entry Date Author Status No 09/24/2023 4:02 PM JESSICAT Elva Love RN Active documented in this encounter Plan of Treatment Not on file documented as of this encounter Goals Goal Patient Goal Type Associated Problems Recent Progress Patient-Stated? Author Health - patient able to perform ADLs independently Lifestyle No Lobo Barreto i, RN Establish Regular Follow-Ups with PCP Lifestyle No Adryan Talavera ra RN Monitor - verbalizes recognition of s/s wound infections Lifestyle No Zohreh Talavera RN Medications - able to self-administer medications Lifestyle No Zohreh Talavera, RN Note: Pt verbalizes understanding on self administration of IV abx documented as of this encounter Visit Diagnoses Not on filedocumented in this encounter Additional Health Concerns Infection Onset Date Last Indicated Resolved Time ESBL - Extended Spectrum Bet a-lactamase Comment:07/05/21 +ESBL Urine 07/07/2021 07/07/2021 Assessment Noted Time PHQ-9 Depression Total Score: 4 06/12/19 24 2:21 PM CDT documented as of this encounter Care Teams Copyholder Relationship Specialty Start Date End Date Liyah Alba FNP [address] [place] [id number] PCP - General Nurse Practitioner Family 04/19/21 Zohreh Talavera electricity trader (Ambulatory) REGISTERED NURSE 11/27/24 12/27/24 documented as of this encounter
[2025-01-31 11:04] LABS: Estimated Glomerular Filt Rate 55
== END 2025-01-30 14:49 | disposition home or self-care (01) ==
PROVIDERS: PCP Nurse Practitioner Family
DX: K75.0 Abscess of liver (principal)
CPT/HCPCS: 74177; Q9967